=== PATIENT | male | born 1935 | race Asian ===

== ENCOUNTER 2016-10-24 10:56 | Inpatient (IN) | payer OTHER ==
[~2016-10-24] VITALS: Ht 170.2 cm; Wt 69.0 kg
[2016-10-24] MEDS ORDERED: PANTOPRAZOLE 40 MG INJ IV STA (11:06)
[2016-10-24] MEDS ORDERED: SOD CHLORIDE 0.9% 1,000 ML IV STA (11:13)
[2016-10-24] MEDS ORDERED: DILTIAZEM 25 MG INJ IV ONE ×2 (11:30→16:00)
[2016-10-24 11:32] LABS: BASOPHILS % 0.5 % (0.0-2.0); EOSINOPHILS % 0.2 % (0.0-7.0); HEMATOCRIT 25.7 % (42.0-52.0); HEMOGLOBIN 8.4 g/dl (14.0-18.0); LYMPHOCYTES # 1.4 10^3/ul (0.8-2.9); LYMPHOCYTES % 16.9 % (15.0-51.0); MEAN CORPUSCULAR HGB CONC 32.7 g/dl (32.0-37.0); MEAN CORPUSCULAR VOLUME 91.8 fl (82.0-101.0); MEAN PLATELET VOLUME 9.5 fl (7.4-10.4); MONOCYTE # 0.6 10^3/ul (0.3-0.9); MONOCYTES % 6.9 % (0.0-11.0); NEUTROPHIL # 6.2 10^3/ul (1.6-7.5); PLATELET COUNT 179 10^3/UL (140-415); RED CELL DISTRIBUTION WIDTH 15.3 % (11.5-14.5); WHITE BLOOD COUNT 8.3 10^3/ul (4.8-10.8)
[2016-10-24 11:50] LABS: ALANINE AMINOTRANSFERASE 29 IU/L (13-69); ALBUMIN 3.4 g/dl (3.3-4.9); ALBUMIN/GLOBULIN RATIO 1.06; ALKALINE PHOSPHATASE 94 IU/L (42-121); ANION GAP 18 (8-16); ASPARTATE AMINO TRANSFERASE 23 IU/L (15-46); BILIRUBIN,INDIRECT 1.1 mg/dl (0-1.1); BILIRUBIN,TOTAL 1.1 mg/dl (0.2-1.3); BLOOD UREA NITROGEN 15 mg/dl (7-20); CALCIUM 9.5 mg/dl (8.4-10.2); CARBON DIOXIDE 26 mmol/L (21-31); CHLORIDE 110 mmol/L (97-110); CREATININE 0.78 mg/dl (0.61-1.24); GLUCOSE 106 mg/dl (70-220); POTASSIUM 4.2 mmol/L (3.5-5.1); PROTIME 86.8 Sec (12.2-14.2); PT RATIO 6.8; SODIUM 150 mmol/L (135-144); TOTAL PROTEIN 6.6 g/dl (6.1-8.1)
[2016-10-24 12:02] LABS: TROPONIN-I < 0.012 ng/ml (0.00-0.12)
[2016-10-24 12:10] LABS: INR > 10.00; PARTIAL THROMBOPLASTIN TIME 160.4 Sec (25.0-35.0)
[2016-10-24] MEDS ORDERED: ONDANSETRON 4 MG INJ IV PRN ×2 (12:30→15:30)
[2016-10-24] MEDS ORDERED: EVAC CONTAINER IV ONE (12:30)
[2016-10-24] MEDS ORDERED: ACETAMINOPHEN 325 MG TAB PO PRN ×2 (12:30→15:30)
[2016-10-24] MEDS ORDERED: HUMAN PROTHROMBIN COMPLX IV ONE (12:30)
[2016-10-24] MEDS ORDERED: METO25TA7 PO (12:52)
[2016-10-24] MEDS ORDERED: LOVA40TA64 PO (12:52)
[2016-10-24] MEDS ORDERED: TAMS0.4C2 PO (12:52)
[2016-10-24] MEDS ORDERED: AMLO2.5T78 PO (12:52)
--- NOTE | 2016-10-24 13:16 | ERA ---
ER Documentation Chief Complaint Date/Time DATE: 10/24/16 TIME: 13:12 Chief Complaint BIB RA FROM CLINIC WITH BLOOD IN STOOL FOR 3 DAYS. GEN WEAKNESS HPI Patient is a 81-year-old male with atrial fibrillation, hypertension, and peripheral artery disease who presents with a GI bleed. The patient is on Coumadin. The bleeding started 2 days ago. He has mid abdominal pain and chest pain. He is shortness of breath. He was seen in the office at [facility] today and was sent to the ER for admission. ROS All systems reviewed and are negative except as per history of present illness. Medications Home Meds Reported Medications Tamsulosin Hcl* (Tamsulosin Hcl*) 0.4 Mg Cap.er.24h, 0.4 MG PO HS, CAP 10/24/16 Lovastatin* (Altoprev*) 40 Mg Tab.sr.24h, 40 MG PO HS, TAB 10/24/16 Amlodipine Besylate* (Amlodipine Besylate*) 2.5 Mg Tablet, 2.5 MG PO DAILY, #30 TAB 10/24/16 Metoprolol Succinate* (Toprol XL*) 25 Mg Tab.sr.24h, 25 MG PO DAILY, #30 TAB 10/24/16 Allergies Allergies: Coded Allergies: No Known Allergy (Unverified , 10/24/16) PMhx/Soc Hx Miscellaneous Medical Probl: Yes (A FIB) Hx Alcohol Use: No Hx Substance Use: No Hx Tobacco Use: No Smoking Status: Never smoker FmHx Family History: No diabetes Physical Exam Vitals Vital Signs Date Time Temp Pulse Resp B/P Pulse Ox O2 Delivery O2 Flow Rate FiO2 10/24/16 12:33 98.1 79 18 106/81 98 Room Air 10/24/16 11:48 Nasal Cannula 10/24/16 11:08 98.8 130 20 126/78 97 Physical Exam Const: No acute distress Head: Atraumatic Eyes: Normal Conjunctiva ENT: Normal External Ears, Nose and Mouth. Neck: Full range of motion..~ No meningismus. Resp: Clear to auscultation bilaterally Cardio: Tachycardic rate with a regular rhythm Abd: Soft, non tender, nondistended. Normal bowel sounds. Skin: Pale skin Back: No midline or flank tenderness Ext: No cyanosis, or edema Neur: Awake and alert Psych: Normal Mood and Affect Result Diagram: 10/24/16 1113 10/24/16 1113 Results 24 hrs Laboratory Tests Test 10/24/16 11:13 White Blood Count 8.310^3/ul Red Blood Count 2.8010^6/ul Hemoglobin 8.4g/dl Hematocrit 25.7% Mean Corpuscular Volume 91.8fl Mean Corpuscular Hemoglobin 30.0pg Mean Corpuscular Hemoglobin Concent 32.7g/dl Red Cell Distribution Width 15.3% Platelet Count 37893^3/UL Mean Platelet Volume 9.5fl Neutrophils % 75.0% Lymphocytes % 16.9% Monocytes % 6.9% Eosinophils % 0.2% Basophils % 0.5% Nucleated Red Blood Cells % 0.0/100WBC Neutrophils # 6.210^3/ul Lymphocytes # 1.410^3/ul Monocytes # 0.610^3/ul Eosinophils # 0.010^3/ul Basophils # 0.010^3/ul Nucleated Red Blood Cells # 0.010^3/ul Prothrombin Time 86.8Sec Prothrombin Time Ratio 6.8 INR International Normalized Ratio > 10.00 Activated Partial Thromboplast Time 160.4Sec Sodium Level 150mmol/L Potassium Level 4.2mmol/L Chloride Level 110mmol/L Carbon Dioxide Level 26mmol/L Anion Gap 18 Blood Urea Nitrogen 15mg/dl Creatinine 0.78mg/dl Glucose Level 106mg/dl Calcium Level 9.5mg/dl Total Bilirubin 1.1mg/dl Direct Bilirubin 0.00mg/dl Indirect Bilirubin 1.1mg/dl Aspartate Amino Transf (AST/SGOT) 23IU/L Alanine Aminotransferase (ALT/SGPT) 29IU/L Alkaline Phosphatase 94IU/L Troponin I < 0.012ng/ml Total Protein 6.6g/dl Albumin 3.4g/dl Globulin 3.20g/dl Albumin/Globulin Ratio 1.06 Current Medications Medications (Trade) Dose Ordered Sig/Ebenezer Route PRN Reason Start Time Stop Time Status Last Admin Dose Admin Pantoprazole 40 mg 40 mg ONCE STAT IV 10/24/16 11:06 10/24/16 11:07 DC 10/24/16 11:27 Sodium Chloride (NS) 1,000 ml @ 1,000 mls/hr Q1H STAT IV 10/24/16 11:13 10/24/16 12:12 DC 10/24/16 11:29 Diltiazem HCl (Cardizem Iv) 20 mg ONCE ONCE IV 10/24/16 11:30 10/24/16 11:31 DC 10/24/16 11:29 Ondansetron HCl (Zofran Inj) 4 mg ER BRIDGE PRN IV NAUSEA AND/OR VOMITING 10/24/16 12:30 10/25/16 12:29 Acetaminophen 650 mg 650 mg ER BRIDGE PRN PO MILD PAIN/FEVER 10/24/16 12:30 10/25/16 12:29 Prothrombin Complex Concent (Human)/N/A (Kcentra Kit/ Evac Container) 140 ml @ 280 mls/hr ONCE ONCE IV 10/24/16 12:30 10/24/16 12:59 DC Procedures/MDM EKG read by me: Rate/Rhythm: Atrial fibrillation with a rapid ventricular rate Intervals: Normal Impression: A. fib with RVR Chest x-ray pending at this time. Patient is a 81-year-old male who presents with acute atrial fibrillation with rapid ventricular response and acute GI bleed. The patient has a significant coagulopathy with INR greater than 10. Given the GI bleed and significantly elevated INR the patient will be getting K Centra. The patient will be admitted to a telemetry bed. I spoke with Dr. Sarmiento from the panel team for admission as the patient has [employer] insurance and the panel team is admitting for healthcare [employer]. Critical Care: Time: 35 minutes excluding all billable procedures. Treatments/Evaluations: Close monitoring and treatment of unstable vital signs, cardiorespiratory, and neurologic status, while maintaining tight balance of fluid, respiratory, and cardiac interventions. Departure Diagnosis: Primary Impression: Coagulopathy Additional Impressions: GI bleed Qualified Code: K92.2 - Gastrointestinal hemorrhage, unspecified gastrointestinal hemorrhage type Anemia Qualified Code: D64.9 - Anemia, unspecified type Condition: Serious DARÍO VERA MD Oct 24, 2016 13:16
[2016-10-24] MEDS ORDERED: ACETAMINOPHEN 650 MG SUPP PR PRN (15:30)
[2016-10-24] MEDS ORDERED: PHYTONADIONE 10 MG in DEXTROSE 5% 50 ML IVPB ONE ×4 (15:30)
[2016-10-24] MEDS ORDERED: BISACODYL 10 MG SUPP PR PRN (15:30)
[2016-10-24] MEDS ORDERED: HYDROCODONE/APAP (5/325) TAB PO PRN ×2 (15:30)
[2016-10-24] MEDS ORDERED: morphine 4 MG/ML VIAL IV PRN (15:30)
[2016-10-24] MEDS ORDERED: DOCUSATE SODIUM 100 MG CAP PO PRN (15:30)
[2016-10-24] MEDS ORDERED: NACL 0.9% 3 ML SYG IV SCH (15:30)
[2016-10-24] MEDS ORDERED: MAGNESIUM HYDROXIDE 30ML CUP PO PRN (15:30)
[2016-10-24] MEDS: SOD CHLORIDE 0.9% 1,000 ML IV SCH (16:10)
--- NOTE | 2016-10-24 16:18 | CONS ---
Date/Time of Note Date/Time of Note DATE: 10/24/16 TIME: 16:02 Assessment/Plan Assessment/Plan Additional Assessment/Plan Assessment * Anemia Hematochezia T/C lower GI bleed VS Upper GI Bleed * Supra Therapeutic INR * Atrial fibrillation with RVR * Hypertension Plan * Correct INR * Vit K as ordered * Protonix 40 mg BID * Monitor hemoglobin and hematocrit q 6 and transfuse per protocol * case discussed with Dr Dai * Further orders will depend on clinical course Consultation Date/Type/Reason Admit Date/Time Date of Consultation: Oct 24, 2016 Type of Consultation: Gastroenterology Reason for Consultation lower GI bleed Referring Provider: HAVEN FERRIS Hx of Present Illness 81 year old male with history of hypertension fibrillation atrial fibrillation presented in the Emergency room complaining of shortness of breath.Present condition apparently started 2 days prior to consult as hematochezia with vague abdominal pain.Patient denies any nausea ,hematemesis but patient has been on Coumadin.He went to his primary provider but was sent to ER because of shortness of breath.He denies any cough ,colds nor chest pain.Laboratory workup revealed hemoglobin 8.4,hematocrit 25.7 PT 86.8,INR, >10 APTT 160.4. Constitutional: improved, no complaints Eyes: no complaints ENT: no complaints Respiratory: shortness of breath, wheezing Cardiovascular: palpitations Gastrointestinal: blood Genitourinary: no complaints Musculoskeletal: no complaints Skin: no complaints Neurologic: no complaints Endocrine: no complaints Lymphatic: no complaints Psychological: nl mood/affect, no complaints Immunologic: no complaints Past Medical History Medical History: hypertension, other (atrial fibrillation) Family History Significant Family History: no pertinent family hx Social History Alcohol Use: rarely Smoking Status: Never smoker Exam/Review of Systems Vital Signs Vitals Vital Signs Date Time Temp Pulse Resp B/P Pulse Ox O2 Delivery O2 Flow Rate FiO2 10/24/16 14:52 98.1 71 18 119/63 98 Room Air Exam Constitutional: alert, frail, oriented Psych: nl mood/affect, no complaints Head: atraumatic, normocephalic Eyes: EOMI, PERRL, nl conjunctiva, nl lids, nl sclera ENMT: nl external ears & nose, nl lips & teeth, nl nasal mucosa & septum Neck: non-tender, supple Respiratory: diminished breath sounds, normal air movement, wheezing Cardiovascular: irregular rhythm Gastrointestinal: nl liver, spleen, non-tender, soft Musculoskeletal: nl extremities to inspection, nl gait and stance Extremities: normal pulses Neurological: nl mental status, nl speech Skin: nl turgor, No rash or lesions Lymph: nl lymph nodes Results Result Diagram: 10/24/16 1113 10/24/16 1113 Results 24 hrs Laboratory Tests Test 10/24/16 11:13 White Blood Count 8.3 Red Blood Count 2.80 L Hemoglobin 8.4 L Hematocrit 25.7 L Mean Corpuscular Volume 91.8 Mean Corpuscular Hemoglobin 30.0 Mean Corpuscular Hemoglobin Concent 32.7 Red Cell Distribution Width 15.3 H Platelet Count 179 Mean Platelet Volume 9.5 Neutrophils % 75.0 Lymphocytes % 16.9 Monocytes % 6.9 Eosinophils % 0.2 Basophils % 0.5 Nucleated Red Blood Cells % 0.0 Neutrophils # 6.2 Lymphocytes # 1.4 Monocytes # 0.6 Eosinophils # 0.0 Basophils # 0.0 Nucleated Red Blood Cells # 0.0 Prothrombin Time 86.8 H Prothrombin Time Ratio 6.8 INR International Normalized Ratio > 10.00 *H Activated Partial Thromboplast Time 160.4 *H Sodium Level 150 H Potassium Level 4.2 Chloride Level 110 Carbon Dioxide Level 26 Anion Gap 18 H Blood Urea Nitrogen 15 Creatinine 0.78 Glucose Level 106 Calcium Level 9.5 Total Bilirubin 1.1 Direct Bilirubin 0.00 Indirect Bilirubin 1.1 Aspartate Amino Transf (AST/SGOT) 23 Alanine Aminotransferase (ALT/SGPT) 29 Alkaline Phosphatase 94 Troponin I < 0.012 Total Protein 6.6 Albumin 3.4 Globulin 3.20 Albumin/Globulin Ratio 1.06 Medications Medications Current Medications Amlodipine Besylate (Norvasc) 2.5 mg DAILY PO ; Start 10/25/16 at 09:00 Metoprolol Succinate (Toprol Xl) 25 mg DAILY PO ; Start 10/25/16 at 09:00 Tamsulosin HCl (Flomax) 0.4 mg HS PO ; Start 10/24/16 at 21:00 Atorvastatin Calcium 10 mg 10 mg DAILY@21 PO ; Start 10/24/16 at 21:00 Sodium Chloride (NS) 1,000 ml @ 60 mls/hr [id number] IV ; Start 10/24/16 at 15:16 Ondansetron HCl (Zofran Inj) 4 mg Q6H PRN IV NAUSEA AND/OR VOMITING; Start 10/24 at 15:30 Acetaminophen (Tylenol Tab) 650 mg Q6H PRN PO PAIN LEVEL 1-3 OR FEVER; Start at 15:30 Acetaminophen (Tylenol Supp) 650 mg Q6H PRN [place] PAIN LEVEL 1-3 OR FEVER; Start 10/24/16 at 15:30 Acetaminophen/ Hydrocodone Bitart ([place] (5/325)) 1 tab Q6H PRN PO MODERATE PAIN LEVEL 4-6; Start 10/24/16 at 15:30 Acetaminophen/ Hydrocodone Bitart ([place] (5/325)) 2 tab Q6H PRN PO SEVERE PAIN LEVEL 7-10; Start 10/24/16 at 15:30 Morphine Sulfate (morphine) 2 mg Q4H PRN IV SEVERE PAIN LEVEL 7-10; Start at 15:30 Docusate Sodium (Colace) 100 mg Q12H PRN PO CONSTIPATION; Start 10/24/16 at 15: 30 Magnesium Hydroxide (Milk Of Mag) 30 ml DAILY PRN PO CONSTIPATION; Start at 15:30 Bisacodyl (Dulcolax Supp) 10 mg DAILY PRN [place] CONSTIPATION; Start 10/24/16 at 15: 30 Pantoprazole (Protonix Iv) 40 mg DAILY@06 IV ; Start 10/25/16 at 06:00 Diltiazem HCl (Cardizem Iv) 20 mg ONCE ONCE IV ; Start 10/24/16 at 16:00; Stop 10/24/16 at 16:01 JOHN CONNELL NP Oct 24, 2016 16:12
[2016-10-24] MEDS ORDERED: DILTIAZEM 30 MG TAB PO ONE (16:30)
--- NOTE | 2016-10-24 16:31 | HP ---
Date/Time of Note Date/Time of Note DATE: 10/24/16 TIME: 16:23 Assessment/Plan VTE Prophylaxis VTE Prophylaxis Intervention: contraindicated Assessment/Plan Chief Complaint/Hosp Course Impression and plan 1. Hematochezia and anemia. Patient with supratherapeutic INR and was taking warfarin without having his level checked. Patient given K Centra as well as vitamin K in the ER. Monitor H&H and also monitor INR level. Will get greige mender follow. 2. A. fib with RVR. Patient was given Cardizem. Will get eating disorder specialist to follow. Patient to be resumed on beta-sarath 3. Essential hypertension. Will resume patient's antihypertensives and adjust as needed 4. History of dyslipidemia. Continue on statin medication follow-up on fasting lipid panel 5. BPH. Patient resumed on his home regimen Discussed plan of care with Dr. Arenas Problems: HPI/ROS Admit Date/Time Admit Date/Time Hx of Present Illness This is a 81-year-old male with history of hypertension, BPH, dyslipidemia, heart arrhythmia (history of this unclear) who came to [facility] due to reports of 3 days of hematochezia. According to the patient for the past 2 days he been having bright red blood in his stool also with associated weakness and some shortness of breath. He also reported being able to bruise easily. He of note was reportedly started on warfarin for a heart arrhythmia however had never been getting his level and INR checked. He did come to [facility] due to the aformentiond issues. He was seen with hemoglobin of 8.4 and hematocrit of 25.7. He was slightly hyponatremic with sodium at 150. He remained afebrile. Initial troponin was also negative. Patient was also found to be an A. fib with rapid rate as high as 130. He was given Cardizem 20 mg with good response. Currently the patient is seen in atrial fibrillation but rate is currently controlled. We will evaluate him for the aformentiond issues. ROS 12 point review of systems obtained and entirely negative except that mentioned in history of present illness Eyes: no complaints ENT: no complaints Respiratory: shortness of breath, wheezing Cardiovascular: palpitations Gastrointestinal: blood Genitourinary: no complaints Musculoskeletal: no complaints Skin: no complaints Neurologic: no complaints Lymphatic: no complaints Psychological: nl mood/affect, no complaints Immunologic: no complaints PMH/Family/Social Past Medical History Medical/surgical history 1. Reported heart arrhythmia 2. Hypertension 3. Dyslipidemia 4. BPH 5. Abdominal surgery (patient does not know why he had surgery) Medical History: hypertension, other (atrial fibrillation) Family History Significant Family History: no pertinent family hx Social History Alcohol Use: none Smoking Status: Former smoker Drug Use: none Exam/Review of Systems Vital Signs Vitals Vital Signs Date Time Temp Pulse Resp B/P Pulse Ox O2 Delivery O2 Flow Rate FiO2 10/24/16 14:52 98.1 71 18 119/63 98 Room Air Exam Constitutional: alert, oriented Head: normocephalic Neck: supple, No jvd Respiratory: clear to auscultation Cardiovascular: other (irregular rate) Gastrointestinal: non-tender, soft Musculoskeletal: swelling (BLE ) Neurological: HIV PREVENTION SPECIALIST II-XII intact, nl mental status, nl speech Skin: other (Ecchymosis seen on bilateral upper extremities) Labs Result Diagram: 10/24/16 1113 10/24/16 1113 Medications Medications Current Medications Amlodipine Besylate (Norvasc) 2.5 mg DAILY PO ; Start 10/25/16 at 09:00 Metoprolol Succinate (Toprol Xl) 25 mg DAILY PO ; Start 10/25/16 at 09:00 Tamsulosin HCl (Flomax) 0.4 mg HS PO ; Start 10/24/16 at 21:00 Atorvastatin Calcium 10 mg 10 mg DAILY@21 PO ; Start 10/24/16 at 21:00 Sodium Chloride (NS) 1,000 ml @ 60 mls/hr [id number] IV Last administered on t 16:10; Admin Dose 60 MLS/HR; Start 10/24/16 at 15:16 Ondansetron HCl (Zofran Inj) 4 mg Q6H PRN IV NAUSEA AND/OR VOMITING; Start 10/24 at 15:30 Acetaminophen (Tylenol Tab) 650 mg Q6H PRN PO PAIN LEVEL 1-3 OR FEVER; Start at 15:30 Acetaminophen (Tylenol Supp) 650 mg Q6H PRN [place] PAIN LEVEL 1-3 OR FEVER; Start 10/24/16 at 15:30 Acetaminophen/ Hydrocodone Bitart ([place] (5/325)) 1 tab Q6H PRN PO MODERATE PAIN LEVEL 4-6; Start 10/24/16 at 15:30 Acetaminophen/ Hydrocodone Bitart ([place] (5/325)) 2 tab Q6H PRN PO SEVERE PAIN LEVEL 7-10; Start 10/24/16 at 15:30 Morphine Sulfate (morphine) 2 mg Q4H PRN IV SEVERE PAIN LEVEL 7-10; Start at 15:30 Docusate Sodium (Colace) 100 mg Q12H PRN PO CONSTIPATION; Start 10/24/16 at 15: 30 Magnesium Hydroxide (Milk Of Mag) 30 ml DAILY PRN PO CONSTIPATION; Start at 15:30 Bisacodyl (Dulcolax Supp) 10 mg DAILY PRN [place] CONSTIPATION; Start 10/24/16 at 15: 30 Pantoprazole (Protonix Iv) 40 mg DAILY@06 IV ; Start 10/25/16 at 06:00 Diltiazem HCl (Cardizem) 30 mg ONCE ONCE PO ; Start 10/24/16 at 16:30; Stop 10/24 at 16:31 HAVEN FERRIS Oct 24, 2016 16:31
--- NOTE | 2016-10-24 19:24 | CONS ---
Date/Time of Note Date/Time of Note DATE: 10/24/16 TIME: 19:17 Assessment/Plan Assessment/Plan Chief Complaint/Hosp Course Assessment: Atrial fibrillation, likely chronic - rapid ventricular rates on presentation, now rate controlled Hematochezia and anemia - per gastroenterology Supratherapeutic INR - >10 Hypertension Dyslipidemia Benign prostate hyperplasia Recommendations: -vitamin K -continue metoprolol succinate 25mg daily and amlodipine 2.5mg daily -continue statin Problems: Consultation Date/Type/Reason Admit Date/Time Type of Consultation: Cardiology Reason for Consultation atrial fibrillation with rapid ventricular response Hx of Present Illness The patient is a 81 year-old male who presents with a three day history of hematochezia. His hemoglobin is 8.4 and INR is >10. He is presumably on warfarin for atrial fibrillation. He is very unclear about his past medical history or current home medications. 14 point review of systems negative other than per HPI. Past Medical History Atrial fibrillation Hypertension Dyslipidemia Benign prostate hyperplasia Past Surgical History Abdominal surgery - patient does not know details Family History Significant Family History: no pertinent family hx Social History Alcohol Use: none Smoking Status: Former smoker Drug Use: none Exam/Review of Systems Vital Signs Vitals Vital Signs Date Time Temp Pulse Resp B/P Pulse Ox O2 Delivery O2 Flow Rate FiO2 10/24/16 19:02 98.8 68 24 123/104 98 Room Air Exam Constitutional: alert, well developed Psych: nl mood/affect, no complaints Head: atraumatic, normocephalic Eyes: nl conjunctiva, nl lids ENMT: nl external ears & nose, nl nasal mucosa & septum Neck: non-tender, supple, No jvd Respiratory: clear to auscultation Cardiovascular: irregular rhythm Gastrointestinal: non-tender, soft Musculoskeletal: nl extremities to inspection Extremities: No clubbing, No cyanosis, No edema Neurological: nl mental status, nl speech Skin: nl turgor Results Result Diagram: 10/24/16 1113 10/24/16 1113 Results 24 hrs Laboratory Tests Test 10/24/16 11:13 White Blood Count 8.3 Red Blood Count 2.80 L Hemoglobin 8.4 L Hematocrit 25.7 L Mean Corpuscular Volume 91.8 Mean Corpuscular Hemoglobin 30.0 Mean Corpuscular Hemoglobin Concent 32.7 Red Cell Distribution Width 15.3 H Platelet Count 179 Mean Platelet Volume 9.5 Neutrophils % 75.0 Lymphocytes % 16.9 Monocytes % 6.9 Eosinophils % 0.2 Basophils % 0.5 Nucleated Red Blood Cells % 0.0 Neutrophils # 6.2 Lymphocytes # 1.4 Monocytes # 0.6 Eosinophils # 0.0 Basophils # 0.0 Nucleated Red Blood Cells # 0.0 Prothrombin Time 86.8 H Prothrombin Time Ratio 6.8 INR International Normalized Ratio > 10.00 *H Activated Partial Thromboplast Time 160.4 *H Sodium Level 150 H Potassium Level 4.2 Chloride Level 110 Carbon Dioxide Level 26 Anion Gap 18 H Blood Urea Nitrogen 15 Creatinine 0.78 Glucose Level 106 Calcium Level 9.5 Total Bilirubin 1.1 Direct Bilirubin 0.00 Indirect Bilirubin 1.1 Aspartate Amino Transf (AST/SGOT) 23 Alanine Aminotransferase (ALT/SGPT) 29 Alkaline Phosphatase 94 Troponin I < 0.012 Total Protein 6.6 Albumin 3.4 Globulin 3.20 Albumin/Globulin Ratio 1.06 Medications Medications Current Medications Amlodipine Besylate (Norvasc) 2.5 mg DAILY PO ; Start 10/25/16 at 09:00 Metoprolol Succinate (Toprol Xl) 25 mg DAILY PO ; Start 10/25/16 at 09:00 Tamsulosin HCl (Flomax) 0.4 mg HS PO ; Start 10/24/16 at 21:00 Atorvastatin Calcium 10 mg 10 mg DAILY@21 PO ; Start 10/24/16 at 21:00 Sodium Chloride (NS) 1,000 ml @ 60 mls/hr [id number] IV Last administered on t 16:10; Admin Dose 60 MLS/HR; Start 10/24/16 at 15:16 Ondansetron HCl (Zofran Inj) 4 mg Q6H PRN IV NAUSEA AND/OR VOMITING; Start 10/24 at 15:30 Acetaminophen (Tylenol Tab) 650 mg Q6H PRN PO PAIN LEVEL 1-3 OR FEVER; Start at 15:30 Acetaminophen (Tylenol Supp) 650 mg Q6H PRN OR PAIN LEVEL 1-3 OR FEVER; Start 10/24/16 at 15:30 Acetaminophen/ Hydrocodone Bitart ([place] (5/325)) 1 tab Q6H PRN PO MODERATE PAIN LEVEL 4-6; Start 10/24/16 at 15:30 Acetaminophen/ Hydrocodone Bitart ([place] (5/325)) 2 tab Q6H PRN PO SEVERE PAIN LEVEL 7-10; Start 10/24/16 at 15:30 Morphine Sulfate (morphine) 2 mg Q4H PRN IV SEVERE PAIN LEVEL 7-10; Start at 15:30 Docusate Sodium (Colace) 100 mg Q12H PRN PO CONSTIPATION; Start 10/24/16 at 15: 30 Magnesium Hydroxide (Milk Of Mag) 30 ml DAILY PRN PO CONSTIPATION; Start at 15:30 Bisacodyl (Dulcolax Supp) 10 mg DAILY PRN OR CONSTIPATION; Start 10/24/16 at 15: 30 Pantoprazole (Protonix Iv) 40 mg DAILY@06 IV ; Start 10/25/16 at 06:00 VINICIO BRAGA MD Oct 24, 2016 19:24
[2016-10-24 19:39] LABS: HEMATOCRIT 23.5 % (42.0-52.0); HEMOGLOBIN 7.5 g/dl (14.0-18.0)
[2016-10-24 20:26] VITALS: TEMP 98.6
[2016-10-24 21:03] VITALS: PULSE 104
[2016-10-24 22:00] VITALS: Ht 170.2 cm; Wt 69.0 kg
[2016-10-24] MEDS: ATORVASTATIN 10 MG TAB PO SCH (22:17)
[2016-10-24] MEDS: TAMSULOSIN (SR) 0.4 MG CAP PO SCH (22:17)
[2016-10-25] VITALS (14 sets, daily range): BP systolic 122–156; BP diastolic 61–82; PULSE 86–175; RESP 18–19
[2016-10-25] MEDS: PANTOPRAZOLE 40 MG INJ IV SCH (06:27)
[2016-10-25] MEDS: SOD CHLORIDE 0.9% 1,000 ML IV SCH ×2 (07:56→20:14)
[2016-10-25 08:38] LABS: ALANINE AMINOTRANSFERASE 24 IU/L (13-69); ALBUMIN/GLOBULIN RATIO 1.11; ALKALINE PHOSPHATASE 85 IU/L (42-121); ANION GAP 16 (8-16); ASPARTATE AMINO TRANSFERASE 28 IU/L (15-46); BILIRUBIN,INDIRECT 1.2 mg/dl (0-1.1); BILIRUBIN,TOTAL 1.2 mg/dl (0.2-1.3); BLOOD UREA NITROGEN 16 mg/dl (7-20); CALCIUM 9.5 mg/dl (8.4-10.2); CARBON DIOXIDE 21 mmol/L (21-31); CHLORIDE 111 mmol/L (97-110); CHOL/HDL RATIO 3.6 RATIO; CHOLESTEROL 102 mg/dl (100-200); CREATININE 0.66 mg/dl (0.61-1.24); GLUCOSE 91 mg/dl (70-220); HDL CHOLESTEROL 28 mg/dl (31-75); MAGNESIUM 1.7 mg/dl (1.7-2.5); PHOSPHORUS 3.3 mg/dl (2.5-4.9); POTASSIUM 3.9 mmol/L (3.5-5.1); SODIUM 144 mmol/L (135-144); TOTAL PROTEIN 5.7 g/dl (6.1-8.1); TRIGLYCERIDES 84 mg/dl (0-149)
[2016-10-25 08:56] LABS: T3 UPTAKE 55.6 % (23.5-40.5)
[2016-10-25] MEDS ORDERED: AMLODIPINE 2.5 MG TAB PO SCH (09:00)
[2016-10-25] MEDS ORDERED: METOPROLOL (XL) 25 MG TAB PO SCH (09:00)
[2016-10-25 09:11] LABS: THYROID STIMULATING HORMONE < 0.015 MIU/L (0.465-4.680)
[2016-10-25 09:32] LABS: HEMATOCRIT 28.8 % (42.0-52.0); HEMOGLOBIN 9.6 g/dl (14.0-18.0)
[2016-10-25] MEDS ORDERED: morphine 2 MG INJ IV PRN (11:00)
[2016-10-25 12:14] LABS: HEMATOCRIT 29.4 % (42.0-52.0); HEMOGLOBIN 9.7 g/dl (14.0-18.0)
--- NOTE | 2016-10-25 12:44 | PN ---
Date/Time of Note Date/Time of Note DATE: 10/25/16 TIME: 12:40 Assessment/Plan VTE Prophylaxis VTE Prophylaxis Intervention: SCD's Lines/Catheters IV Catheter Type (from [facility]): Peripheral IV Urinary Cath still in place: No Assessment/Plan Assessment/Plan Assessment * Anemia * GI bleeding /ematochezia T/C lower GI bleed VS Upper GI Bleed * Supra Therapeutic INR * Atrial fibrillation with RVR * Hypertension Plan * Correct INR * Vit K as ordered * Protonix 40 mg BID * Monitor hemoglobin and hematocrit q 6 and transfuse per protocol * Tentative plans for colonoscopy on Thursday Subjective 24 Hr Interval Summary Free Text/Dictation Course reviewed with nursing staff Patient had a normal bowel movement He is a bit short of breath from exertion Coagulopathy still not corrected Plan tentative colonoscopy on Thursday once coagulopathy is improved Exam/Review of Systems Vital Signs Vitals Vital Signs Date Time Temp Pulse Resp B/P Pulse Ox O2 Delivery O2 Flow Rate FiO2 10/25/16 12:08 109 10/25/16 11:40 97.9 18 127/80 99 10/25/16 07:55 Nasal Cannula 2.0 Intake and Output 10/24/16 10/24/16 10/25/16 15:00 23:00 07:00 Intake Total 1100 ml Balance 1100 ml Exam Constitutional: alert, oriented, well developed Head: atraumatic, normocephalic Eyes: EOMI, PERRL, nl conjunctiva, nl lids, nl sclera ENMT: nl external ears & nose, nl lips & teeth, nl nasal mucosa & septum Neck: non-tender, supple Respiratory: clear to auscultation, normal air movement Cardiovascular: irregular rhythm, nl pulses Gastrointestinal: distended, nl liver, spleen, non-tender, soft Musculoskeletal: nl extremities to inspection, nl gait and stance Extremities: normal pulses Skin: nl turgor, No rash or lesions Lymph: nl lymph nodes Results Result Diagram: 10/25/16 1148 10/25/16 0738 Results 24 hrs Laboratory Tests Test 10/24/16 19:00 10/25/16 07:34 10/25/16 07:38 10/25/16 11:48 Hemoglobin 7.5 L 9.6 #L 9.7 L Hematocrit 23.5 L 28.8 #L 29.4 L Hemoglobin A1c 5.2 Sodium Level 144 Potassium Level 3.9 Chloride Level 111 H Carbon Dioxide Level 21 Anion Gap 16 Blood Urea Nitrogen 16 Creatinine 0.66 Glucose Level 91 Calcium Level 9.5 Phosphorus Level 3.3 Magnesium Level 1.7 Total Bilirubin 1.2 Direct Bilirubin 0.00 Indirect Bilirubin 1.2 H Aspartate Amino Transf (AST/SGOT) 28 Alanine Aminotransferase (ALT/SGPT) 24 Alkaline Phosphatase 85 Total Protein 5.7 L Albumin 3.0 L Globulin 2.70 Albumin/Globulin Ratio 1.11 Triglycerides Level 84 Cholesterol Level 102 LDL Cholesterol, Calculated 57 HDL Cholesterol 28 L Cholesterol/HDL Ratio 3.6 Thyroid Stimulating Hormone (TSH) < 0.015 L Free Thyroxine Index 9.79 H Thyroxine (T4) 17.6 H Triiodothyronine (T3) Uptake 55.6 H Medications Medications Current Medications Amlodipine Besylate (Norvasc) 2.5 mg DAILY PO Last administered on 10/25/16 09: 42; Admin Dose 2.5 MG; Start 10/25/16 at 09:00 Metoprolol Succinate (Toprol Xl) 25 mg DAILY PO Last administered on 10/25/16 09:42; Admin Dose 25 MG; Start 10/25/16 at 09:00 Tamsulosin HCl (Flomax) 0.4 mg HS PO Last administered on 10/24/16 22:17; Admin Dose 0.4 MG; Start 10/24/16 at 21:00 Atorvastatin Calcium 10 mg 10 mg DAILY@21 PO Last administered on 10/24/16 22: 17; Admin Dose 10 MG; Start 10/24/16 at 21:00 Sodium Chloride (NS) 1,000 ml @ 60 mls/hr [id number] IV Last administered on 16:10; Admin Dose 60 MLS/HR; Start 10/24/16 at 15:16 Ondansetron HCl (Zofran Inj) 4 mg Q6H PRN IV NAUSEA AND/OR VOMITING; Start 10/24 at 15:30 Acetaminophen (Tylenol Tab) 650 mg Q6H PRN PO PAIN LEVEL 1-3 OR FEVER; Start at 15:30 Acetaminophen (Tylenol Supp) 650 mg Q6H PRN [place] PAIN LEVEL 1-3 OR FEVER; Start 10/24/16 at 15:30 Acetaminophen/ Hydrocodone Bitart ([place] (5/325)) 1 tab Q6H PRN PO MODERATE PAIN LEVEL 4-6; Start 10/24/16 at 15:30 Acetaminophen/ Hydrocodone Bitart ([place] (5/325)) 2 tab Q6H PRN PO SEVERE PAIN LEVEL 7-10; Start 10/24/16 at 15:30 Docusate Sodium (Colace) 100 mg Q12H PRN PO CONSTIPATION; Start 10/24/16 at 15: 30 Magnesium Hydroxide (Milk Of Mag) 30 ml DAILY PRN PO CONSTIPATION; Start at 15:30 Bisacodyl (Dulcolax Supp) 10 mg DAILY PRN [place] CONSTIPATION; Start 10/24/16 at 15: 30 Pantoprazole (Protonix Iv) 40 mg DAILY@06 IV Last administered on 10/25/16t 06: 27; Admin Dose 40 MG; Start 10/25/16 at 06:00 Morphine Sulfate (morphine) 2 mg Q4H PRN IV SEVERE PAIN LEVEL 7-10; Start at 11:00 HARVEY CABELLO MD Oct 25, 2016 12:44
--- NOTE | 2016-10-25 13:05 | PN ---
Date/Time of Note Date/Time of Note DATE: 10/25/16 TIME: 13:02 Assessment/Plan VTE Prophylaxis VTE Prophylaxis Intervention: contraindicated Lines/Catheters IV Catheter Type (from [facility]): Peripheral IV Urinary Cath still in place: No Assessment/Plan Chief Complaint/Hosp Course Impression and plan 1. Hematochezia and anemia. Patient with supratherapeutic INR and was taking warfarin without having his level checked. Patient given K Centra as well as vitamin K in the ER. Monitor H&H and also monitor INR level. Launch Check Out following. Tentative plan for colonoscopy. Will follow up 2. A. fib with RVR. Continue regimen per adult services librarian. Also seen with a regular thyroid function. Will get store leader to follow. 3. Essential hypertension. Will resume patient's antihypertensives and adjust as needed. Stable 4. History dyslipidemia. Continue on statin 5. BPH. Patient resumed on his home regimen 6. Hyperthyroid. Will get store leader to follow. Disposition and plan: Tentative plan for GI intervention. Monitor INR. Will get store leader consultation. Discussed plan of care with Dr. Arenas Problems: Subjective 24 Hr Interval Summary Free Text/Dictation No reports of distress at this time. Was reported to still be tachycardic per RN. Exam/Review of Systems Vital Signs Vitals Vital Signs Date Time Temp Pulse Resp B/P Pulse Ox O2 Delivery O2 Flow Rate FiO2 10/25/16 12:08 109 10/25/16 11:40 97.9 18 127/80 99 10/25/16 07:55 Nasal Cannula 2.0 Intake and Output 10/24/16 10/24/16 10/25/16 15:00 23:00 07:00 Intake Total 1100 ml Balance 1100 ml Exam Constitutional: alert, oriented Psych: nl mood/affect Head: normocephalic Respiratory: normal air movement Cardiovascular: other Gastrointestinal: non-tender (Tachycardic, atrial fibrillation), soft Musculoskeletal: swelling Neurological: CAPTURE MANAGER II-XII intact, nl mental status, nl speech Results Result Diagram: 10/25/16 1148 10/25/16 0738 Results 24 hrs Laboratory Tests Test 10/24/16 19:00 10/25/16 07:34 10/25/16 07:38 10/25/16 11:48 Hemoglobin 7.5 L 9.6 #L 9.7 L Hematocrit 23.5 L 28.8 #L 29.4 L Hemoglobin A1c 5.2 Sodium Level 144 Potassium Level 3.9 Chloride Level 111 H Carbon Dioxide Level 21 Anion Gap 16 Blood Urea Nitrogen 16 Creatinine 0.66 Glucose Level 91 Calcium Level 9.5 Phosphorus Level 3.3 Magnesium Level 1.7 Total Bilirubin 1.2 Direct Bilirubin 0.00 Indirect Bilirubin 1.2 H Aspartate Amino Transf (AST/SGOT) 28 Alanine Aminotransferase (ALT/SGPT) 24 Alkaline Phosphatase 85 Total Protein 5.7 L Albumin 3.0 L Globulin 2.70 Albumin/Globulin Ratio 1.11 Triglycerides Level 84 Cholesterol Level 102 LDL Cholesterol, Calculated 57 HDL Cholesterol 28 L Cholesterol/HDL Ratio 3.6 Thyroid Stimulating Hormone (TSH) < 0.015 L Free Thyroxine Index 9.79 H Thyroxine (T4) 17.6 H Triiodothyronine (T3) Uptake 55.6 H Medications Medications Current Medications Amlodipine Besylate (Norvasc) 2.5 mg DAILY PO Last administered on 10/25/16 09: 42; Admin Dose 2.5 MG; Start 10/25/16 at 09:00 Metoprolol Succinate (Toprol Xl) 25 mg DAILY PO Last administered on 10/25/16 09:42; Admin Dose 25 MG; Start 10/25/16 at 09:00 Tamsulosin HCl (Flomax) 0.4 mg HS PO Last administered on 10/24/16 22:17; Admin Dose 0.4 MG; Start 10/24/16 at 21:00 Atorvastatin Calcium 10 mg 10 mg DAILY@21 PO Last administered on 10/24/16 22: 17; Admin Dose 10 MG; Start 10/24/16 at 21:00 Sodium Chloride (NS) 1,000 ml @ 60 mls/hr [id number] IV Last administered on 16:10; Admin Dose 60 MLS/HR; Start 10/24/16 at 15:16 Ondansetron HCl (Zofran Inj) 4 mg Q6H PRN IV NAUSEA AND/OR VOMITING; Start 10/24 at 15:30 Acetaminophen (Tylenol Tab) 650 mg Q6H PRN PO PAIN LEVEL 1-3 OR FEVER; Start at 15:30 Acetaminophen (Tylenol Supp) 650 mg Q6H PRN [place] PAIN LEVEL 1-3 OR FEVER; Start 10/24/16 at 15:30 Acetaminophen/ Hydrocodone Bitart ([place] (5/325)) 1 tab Q6H PRN PO MODERATE PAIN LEVEL 4-6; Start 10/24/16 at 15:30 Acetaminophen/ Hydrocodone Bitart ([place] (5/325)) 2 tab Q6H PRN PO SEVERE PAIN LEVEL 7-10; Start 10/24/16 at 15:30 Docusate Sodium (Colace) 100 mg Q12H PRN PO CONSTIPATION; Start 10/24/16 at 15: 30 Magnesium Hydroxide (Milk Of Mag) 30 ml DAILY PRN PO CONSTIPATION; Start at 15:30 Bisacodyl (Dulcolax Supp) 10 mg DAILY PRN [place] CONSTIPATION; Start 10/24/16 at 15: 30 Pantoprazole (Protonix Iv) 40 mg DAILY@06 IV Last administered on 10/25/16t 06: 27; Admin Dose 40 MG; Start 10/25/16 at 06:00 Morphine Sulfate (morphine) 2 mg Q4H PRN IV SEVERE PAIN LEVEL 7-10; Start at 11:00 Bisacodyl (Dulcolax) 10 mg ONCE ONCE PO ; Start 10/26/16 at 13:00; Stop 10/26/16 at 13:01 Magnesium Citrate (Citroma) 300 ml ONCE ONCE PO ; Start 10/26/16 at 17:30; Stop 10/26/16 at 17:31 Polyethylene Glycol (Miralax) 119 gm ONCE ONCE PO ; Start 10/26/16 at 18:30; Stop 10/26/16 at 18:31 HAVEN FERRIS Oct 25, 2016 13:05
--- NOTE | 2016-10-25 14:38 | CONS ---
Date/Time of Note Date/Time of Note DATE: 10/25/16 TIME: 14:33 Assessment/Plan Assessment/Plan Problems: (1) Thyrotoxicosis Status: Chronic Comment: This patient's presentation is multifactorial. However is not unreasonable to feel that he is approaching storm. He will be treated aggressively to try and bring his numbers down. I do not feel he needs dialysis to dialyze off the T4. Once we get this stabilized then he will need a more formalized cardiac evaluation. To the best of the information I have he was not given amiodarone for the atrial fibrillation as such I suspect based on his history this is a long-term process. 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 He reports no prior history of ever having been told of any type of thyroid disorder. He did have some odynophagia in the remote past. He reports in the last 1 month he had been identified as having atrial fibrillation at an urgent care center. He was placed on anticoagulation has now come in with a significant GI bleed. On careful review of systems he has had symptoms of hyperthyroidism for at least 6 months if not much longer Constitutional: no complaints (No fevers chills or sweats) Eyes: no complaints ENT: no complaints Respiratory: shortness of breath, wheezing Cardiovascular: palpitations Gastrointestinal: blood Genitourinary: no complaints Musculoskeletal: no complaints Skin: no complaints Neurologic: no complaints, other (Does note tremor which he reports he has had for 3 years) Lymphatic: no complaints Psychological: nl mood/affect, no complaints Immunologic: no complaints Past Medical History Medical History: hypertension Past Surgical History Past Surgical Hx: noncontributory Family History Significant Family History: no pertinent family hx Social History Alcohol Use: none Smoking Status: Never smoker Drug Use: none Exam/Review of Systems Vital Signs Vitals Vital Signs Date Time Temp Pulse Resp B/P Pulse Ox O2 Delivery O2 Flow Rate FiO2 10/25/16 12:08 109 10/25/16 11:40 97.9 18 127/80 99 10/25/16 07:55 Nasal Cannula 2.0 Intake and Output 10/24/16 10/24/16 10/25/16 15:00 23:00 07:00 Intake Total 1100 ml Balance 1100 ml Exam Constitutional: alert, oriented Neck: thyromegaly (Modest enlargement of thyroid gland) Respiratory: crackles/rales, normal air movement Cardiovascular: irregular rhythm Gastrointestinal: nl liver, spleen, non-tender, soft Neurological: other (Marked tremor) Results Result Diagram: 10/25/16 1148 10/25/16 0738 Results 24 hrs Laboratory Tests Test 10/24/16 19:00 10/25/16 07:34 10/25/16 07:38 10/25/16 11:48 Hemoglobin 7.5 L 9.6 #L 9.7 L Hematocrit 23.5 L 28.8 #L 29.4 L Hemoglobin A1c 5.2 Sodium Level 144 Potassium Level 3.9 Chloride Level 111 H Carbon Dioxide Level 21 Anion Gap 16 Blood Urea Nitrogen 16 Creatinine 0.66 Glucose Level 91 Calcium Level 9.5 Phosphorus Level 3.3 Magnesium Level 1.7 Total Bilirubin 1.2 Direct Bilirubin 0.00 Indirect Bilirubin 1.2 H Aspartate Amino Transf (AST/SGOT) 28 Alanine Aminotransferase (ALT/SGPT) 24 Alkaline Phosphatase 85 Total Protein 5.7 L Albumin 3.0 L Globulin 2.70 Albumin/Globulin Ratio 1.11 Triglycerides Level 84 Cholesterol Level 102 LDL Cholesterol, Calculated 57 HDL Cholesterol 28 L Cholesterol/HDL Ratio 3.6 Thyroid Stimulating Hormone (TSH) < 0.015 L Free Thyroxine Index 9.79 H Thyroxine (T4) 17.6 H Triiodothyronine (T3) Uptake 55.6 H Test 10/25/16 12:35 Stool Occult Blood POSITIVE Medications Medications Current Medications Amlodipine Besylate (Norvasc) 2.5 mg DAILY PO Last administered on 10/25/16 09: 42; Admin Dose 2.5 MG; Start 10/25/16 at 09:00 Metoprolol Succinate (Toprol Xl) 25 mg DAILY PO Last administered on 10/25/16 09:42; Admin Dose 25 MG; Start 10/25/16 at 09:00 Tamsulosin HCl (Flomax) 0.4 mg HS PO Last administered on 10/24/16 22:17; Admin Dose 0.4 MG; Start 10/24/16 at 21:00 Atorvastatin Calcium 10 mg 10 mg DAILY@21 PO Last administered on 10/24/16 22: 17; Admin Dose 10 MG; Start 10/24/16 at 21:00 Sodium Chloride (NS) 1,000 ml @ 60 mls/hr [id number] IV Last administered on 16:10; Admin Dose 60 MLS/HR; Start 10/24/16 at 15:16 Ondansetron HCl (Zofran Inj) 4 mg Q6H PRN IV NAUSEA AND/OR VOMITING; Start 10/24 at 15:30 Acetaminophen (Tylenol Tab) 650 mg Q6H PRN PO PAIN LEVEL 1-3 OR FEVER; Start at 15:30 Acetaminophen (Tylenol Supp) 650 mg Q6H PRN [place] PAIN LEVEL 1-3 OR FEVER; Start 10/24/16 at 15:30 Acetaminophen/ Hydrocodone Bitart ([place] (5/325)) 1 tab Q6H PRN PO MODERATE PAIN LEVEL 4-6; Start 10/24/16 at 15:30 Acetaminophen/ Hydrocodone Bitart ([place] (5/325)) 2 tab Q6H PRN PO SEVERE PAIN LEVEL 7-10; Start 10/24/16 at 15:30 Docusate Sodium (Colace) 100 mg Q12H PRN PO CONSTIPATION; Start 10/24/16 at 15: 30 Magnesium Hydroxide (Milk Of Mag) 30 ml DAILY PRN PO CONSTIPATION; Start at 15:30 Bisacodyl (Dulcolax Supp) 10 mg DAILY PRN [place] CONSTIPATION; Start 10/24/16 at 15: 30 Pantoprazole (Protonix Iv) 40 mg DAILY@06 IV Last administered on 10/25/16 06: 27; Admin Dose 40 MG; Start 10/25/16 at 06:00 Morphine Sulfate (morphine) 2 mg Q4H PRN IV SEVERE PAIN LEVEL 7-10; Start at 11:00 Bisacodyl (Dulcolax) 10 mg ONCE ONCE PO ; Start 10/26/16 at 13:00; Stop 10/26/16 at 13:01 Magnesium Citrate (Citroma) 300 ml ONCE ONCE PO ; Start 10/26/16 at 17:30; Stop 10/26/16 at 17:31 Polyethylene Glycol (Miralax) 119 gm ONCE ONCE PO ; Start 10/26/16 at 18:30; Stop 10/26/16 at 18:31 CHRISTIE CLARKE MD Oct 25, 2016 14:38
[2016-10-25 14:45] LABS: INR 1.08; PT RATIO 1.1
[2016-10-25 18:01] LABS: HEMOGLOBIN 9.9 g/dl (14.0-18.0)
[2016-10-25] MEDS: TAMSULOSIN (SR) 0.4 MG CAP PO SCH (20:10)
[2016-10-25] MEDS: ATORVASTATIN 10 MG TAB PO SCH (20:10)
[2016-10-25] MEDS: PROPYLTHIOURACIL 50 MG TAB PO SCH (20:13)
--- NOTE | 2016-10-25 20:20 | RADRPT ---
Echocardiogram Report Patient Name: DAISY GAUTAM Gender: Male Date: 1935 Study Date: 25-Oct-2016 Stogy Roller: FIDELIA Location: I Ref. Physician: HAVEN FERRIS Quality: Adequate Procedures: Transthoracic echocardiogram with complete 2D, M-Mode, and Doppler examination. Indications: Atrial Fibrillation. 2D/M Mode Doppler Measurement Value Normal Ranges Measurement Value Normal Ranges AoR Diam MM 3.1 cm AV Peak Chaz 1.5 m/sec ACS MM 2.0 cm AV Peak PG 9.4 mmHg LVIDd 2D 4.8 3.5 - 5.6 cm LVOT Peak Chaz 1.0 m/sec LVIDs 2D 2.9 2.1 - 4.1 cm LVOT Peak PG 4.0 mmHg LVPWd 2D 0.8 0.6 - 1.1 cm TR Peak Chaz 2.9 m/sec IVSd 2D 1.1 0.6 - 1.1 cm TR Peak PG 33.0 mmHg EDV 2D 110.1 cm3 PV Peak Chaz 1.1 m/sec ESV 2D 25.2 cm3 PV Peak PG 5.0 mmHg LA Dimen 2D 3.9 2.3 - 4.0 cm RVSP 36.0 mmHg Findings Left Ventricle: Normal left ventricular systolic function. Normal left ventricular cavity size. Normal left ventricular wall thickness. Ejection fraction is visually estimated at 5560 %. Tissue Doppler/Mitral Doppler indices are indeterminate in this study due to the presence of atrial fibrillation. Right Ventricle: Normal right ventricular systolic function. Mild enlargement of right ventricle. Left Atrium: There is moderate enlargement of left atrium, best appreciated by apical images. Right Atrium: There is moderate enlargement of right atrium. Atrial Septum: Normal atrial septum. Mitral Valve: Normal appearance of the mitral valve. Trace to mild mitral regurgitation. Aortic Valve: Normal appearance of the aortic valve. Trileaflet aortic valve. Trace aortic valve regurgitation. Tricuspid Valve: Normal appearance of the tricuspid valve. Estimated peak PA systolic pressure 36 mmHg. There is mild tricuspid regurgitation. Pulmonic Valve: Normal pulmonic valve appearance. Pericardium: Normal pericardium with no significant pericardial effusion. Right pleural effusion seen. Aorta: Normal aortic root. IVC: Normal size and normal respiratory collapse consistent with normal right atrial pressure. Pulmonary Artery: Normal pulmonary artery size. Conclusions 1.The left ventricle is normal in size and systolic function. 2.Estimated left ventricular ejection fraction of 55-60%. 3.Moderate bi-atrial enlargement. Electronically Signed By: Librado Diaz 25-Oct-2016 20:18:58 -0700 Patient Name: DAISY GAUTAM Study Date: 25-Oct-[id number]
--- NOTE | 2016-10-25 21:53 | CONS ---
Date/Time of Note Date/Time of Note DATE: 10/25/16 TIME: 21:47 Assessment/Plan Assessment/Plan Chief Complaint/Hosp Course Assessment: Atrial fibrillation, likely chronic - rapid ventricular rates in setting of thyrotoxicosis Thyrotoxicosis - on methimazole and propylthiouracil per endocrinology Hematochezia and anemia - per gastroenterology, planned for colonoscopy Supratherapeutic INR - >10 now corrected to 1.08, ? initial lab error Hypertension Dyslipidemia Benign prostate hyperplasia Recommendations: -echocardiogram showed LVEF 55-60%, moderate bi-atrial enlargement -change metoprolol to 25mg Q6hr -discontinue amlodipine -continue statin -recheck INR tomorrow Problems: Consultation Date/Type/Reason Admit Date/Time Oct 24, 2016 at 12:02 Initial Consult Date 10/25/16 Type of Consultation: Cardiology 24 HR Interval Summary Free Text/Dictation In atrial fibrillation with rapid ventricular rates. Found to have thyrotoxicosis and started on treatment by endocrinology. Detailed Summary Additional Comments 14 point review of systems without changes. Exam/Review of Systems Vital Signs Vitals Vital Signs Date Time Temp Pulse Resp B/P Pulse Ox O2 Delivery O2 Flow Rate FiO2 10/25/16 20:50 2.0 10/25/16 20:16 107 10/25/16 19:38 98.5 18 139/82 96 10/25/16 07:55 Nasal Cannula Intake and Output 10/24/16 10/24/16 10/25/16 15:00 23:00 07:00 Intake Total 1100 ml Balance 1100 ml Exam Constitutional: alert, well developed Psych: nl mood/affect, no complaints Head: atraumatic, normocephalic Eyes: nl conjunctiva, nl lids ENMT: nl external ears & nose, nl nasal mucosa & septum Neck: non-tender, supple, No jvd Respiratory: clear to auscultation Cardiovascular: irregular rhythm Gastrointestinal: non-tender, soft Musculoskeletal: nl extremities to inspection Extremities: No clubbing, No cyanosis, No edema Neurological: nl mental status, nl speech Skin: nl turgor Results Result Diagram: 10/25/16 1752 10/25/16 0738 Results 24 hrs Laboratory Tests Test 10/25/16 07:34 10/25/16 07:38 10/25/16 11:48 10/25/16 12:35 Hemoglobin 9.6 #L 9.7 L Hematocrit 28.8 #L 29.4 L Hemoglobin A1c 5.2 Sodium Level 144 Potassium Level 3.9 Chloride Level 111 H Carbon Dioxide Level 21 Anion Gap 16 Blood Urea Nitrogen 16 Creatinine 0.66 Glucose Level 91 Calcium Level 9.5 Phosphorus Level 3.3 Magnesium Level 1.7 Total Bilirubin 1.2 Direct Bilirubin 0.00 Indirect Bilirubin 1.2 H Aspartate Amino Transf (AST/SGOT) 28 Alanine Aminotransferase (ALT/SGPT) 24 Alkaline Phosphatase 85 Total Protein 5.7 L Albumin 3.0 L Globulin 2.70 Albumin/Globulin Ratio 1.11 Triglycerides Level 84 Cholesterol Level 102 LDL Cholesterol, Calculated 57 HDL Cholesterol 28 L Cholesterol/HDL Ratio 3.6 Thyroid Stimulating Hormone (TSH) < 0.015 L Free Thyroxine Index 9.79 H Thyroxine (T4) 17.6 H Triiodothyronine (T3) Uptake 55.6 H Stool Occult Blood POSITIVE Test 10/25/16 13:55 10/25/16 17:52 Prothrombin Time 14.0 # Prothrombin Time Ratio 1.1 INR International Normalized Ratio 1.08 Hemoglobin 9.9 L Hematocrit 30.0 L Medications Medications Current Medications Amlodipine Besylate (Norvasc) 2.5 mg DAILY PO Last administered on 10/25/16 09: 42; Admin Dose 2.5 MG; Start 10/25/16 at 09:00 Metoprolol Succinate (Toprol Xl) 25 mg DAILY PO Last administered on 10/25/16 09:42; Admin Dose 25 MG; Start 10/25/16 at 09:00 Tamsulosin HCl (Flomax) 0.4 mg HS PO Last administered on 10/25/16 20:10; Admin Dose 0.4 MG; Start 10/24/16 at 21:00 Atorvastatin Calcium 10 mg 10 mg DAILY@21 PO Last administered on 10/25/16 20: 10; Admin Dose 10 MG; Start 10/24/16 at 21:00 Sodium Chloride (NS) 1,000 ml @ 60 mls/hr [id number] IV Last administered on 20:14; Admin Dose 60 MLS/HR; Start 10/24/16 at 15:16 Ondansetron HCl (Zofran Inj) 4 mg Q6H PRN IV NAUSEA AND/OR VOMITING; Start 10/24 at 15:30 Acetaminophen (Tylenol Tab) 650 mg Q6H PRN PO PAIN LEVEL 1-3 OR FEVER; Start at 15:30 Acetaminophen (Tylenol Supp) 650 mg Q6H PRN [place] PAIN LEVEL 1-3 OR FEVER; Start 10/24/16 at 15:30 Acetaminophen/ Hydrocodone Bitart ([place] (5/325)) 1 tab Q6H PRN PO MODERATE PAIN LEVEL 4-6; Start 10/24/16 at 15:30 Acetaminophen/ Hydrocodone Bitart ([place] (5/325)) 2 tab Q6H PRN PO SEVERE PAIN LEVEL 7-10; Start 10/24/16 at 15:30 Docusate Sodium (Colace) 100 mg Q12H PRN PO CONSTIPATION; Start 10/24/16 at 15: 30 Magnesium Hydroxide (Milk Of Mag) 30 ml DAILY PRN PO CONSTIPATION; Start at 15:30 Bisacodyl (Dulcolax Supp) 10 mg DAILY PRN [place] CONSTIPATION; Start 10/24/16 at 15: 30 Pantoprazole (Protonix Iv) 40 mg DAILY@06 IV Last administered on 10/25/16 06: 27; Admin Dose 40 MG; Start 10/25/16 at 06:00 Morphine Sulfate (morphine) 2 mg Q4H PRN IV SEVERE PAIN LEVEL 7-10; Start at 11:00 Bisacodyl (Dulcolax) 10 mg ONCE ONCE PO ; Start 10/26/16 at 13:00; Stop 10/26/16 at 13:01 Magnesium Citrate (Citroma) 300 ml ONCE ONCE PO ; Start 10/26/16 at 17:30; Stop 10/26/16 at 17:31 Polyethylene Glycol (Miralax) 119 gm ONCE ONCE PO ; Start 10/26/16 at 18:30; Stop 10/26/16 at 18:31 Propylthiouracil (Ptu) 300 mg TID PO Last administered on 10/25/16 20:13; Admin Dose 300 MG; Start 10/25/16 at 21:00; Stop 10/26/16 at 20:59 Methimazole (Tapazole) 20 mg QAM PO ; Start 10/26/16 at 09:00 VINICIO BRAGA MD Oct 25, 2016 21:53
[2016-10-26] VITALS (11 sets, daily range): BP systolic 115–146; BP diastolic 60–82; PULSE 92–135; RESP 18–21
[2016-10-26 01:00] LABS: HEMATOCRIT 29.8 % (42.0-52.0); HEMOGLOBIN 9.8 g/dl (14.0-18.0)
[2016-10-26] MEDS: METOPROLOL 25 MG TAB PO SCH ×3 (01:02→12:58)
--- NOTE | 2016-10-26 01:24 | RADRPT ---
PROCEDURE: US thyroid. CLINICAL INDICATION: Abnormal thyroid profile, tachycardia TECHNIQUE: Multiple sonographic images of the thyroid were obtained utilizing a linear array trans ducer with grayscale and color-flow and a Doppler imaging. The images were reviewed on a high-resolu [employer] PACS workstation. COMPARISON: No prior studies are available for comparison. FINDINGS: The right lobe measures 4.4 x 2.5 x 1.8 cm. There is a 1.8 cm mixed solid and cystic nodule with a small amount of internal vascular flow and appearance of small internal calcifications in the lower right lobe. There are 3 calcified solid nodules in the mid to lower right lobe the largest 9 mm. Th ere is a 1.2 cm solid nodule with considerable internal vascular flow in the upper right lobe. The left lobe measures 4.2 x 1.4 x 2 cm. No left thyroid nodule is seen. The isthmus measures 2.7 mm. IMPRESSION: Multiple right thyroid nodules. Consider biopsy of 1.8 cm mixed solid and cystic nodule with a smal l amount of internal vascular flow and appearance of small internal calcifications in the lower righ t lobe and 1.2 cm solid nodule with considerable internal vascular flow in the upper right lobe. RPTAT: HJES .Dillon Osborne MD, MD Date Time Electronically viewed and signed by .Dillon Osborne MD, on 10/26/2016 01:24 .S/
[2016-10-26] MEDS: PANTOPRAZOLE 40 MG INJ IV SCH (05:25)
[2016-10-26 07:12] LABS: BASOPHILS % 0.6 % (0.0-2.0); EOSINOPHILS # 0.5 10^3/ul (0.0-0.5); EOSINOPHILS % 6.9 % (0.0-7.0); HEMATOCRIT 29.2 % (42.0-52.0); HEMOGLOBIN 9.6 g/dl (14.0-18.0); LYMPHOCYTES # 1.2 10^3/ul (0.8-2.9); LYMPHOCYTES % 16.8 % (15.0-51.0); MEAN CORPUSCULAR HEMOGLOBIN 30.2 pg (29.0-33.0); MEAN CORPUSCULAR HGB CONC 32.9 g/dl (32.0-37.0); MEAN CORPUSCULAR VOLUME 91.8 fl (82.0-101.0); MEAN PLATELET VOLUME 10.1 fl (7.4-10.4); MONOCYTE # 0.8 10^3/ul (0.3-0.9); MONOCYTES % 11.2 % (0.0-11.0); NEUTROPHIL # 4.6 10^3/ul (1.6-7.5); NEUTROPHILS % 64.1 % (39.0-77.0); PLATELET COUNT 150 10^3/UL (140-415); RED BLOOD COUNT 3.18 10^6/ul (4.70-6.10); RED CELL DISTRIBUTION WIDTH 14.9 % (11.5-14.5); WHITE BLOOD COUNT 7.2 10^3/ul (4.8-10.8)
[2016-10-26 07:28] LABS: INR 1.11; PROTIME 14.3 Sec (12.2-14.2); PT RATIO 1.1
[2016-10-26 07:34] LABS: CALCIUM 9.2 mg/dl (8.4-10.2); CREATININE 0.66 mg/dl (0.61-1.24); POTASSIUM 3.9 mmol/L (3.5-5.1)
[2016-10-26] MEDS: METHIMAZOLE 5 MG TAB PO SCH (08:34)
[2016-10-26] MEDS: PROPYLTHIOURACIL 50 MG TAB PO SCH ×2 (08:34→12:58)
--- NOTE | 2016-10-26 12:09 | PN ---
Date/Time of Note Date/Time of Note DATE: 10/26/16 TIME: 12:07 Assessment/Plan VTE Prophylaxis VTE Prophylaxis Intervention: contraindicated Lines/Catheters IV Catheter Type (from [facility]): Peripheral IV Urinary Cath still in place: No Assessment/Plan Chief Complaint/Hosp Course Impression and plan 1. Hematochezia and anemia. Patient with supratherapeutic INR and was taking warfarin without having his level checked. Patient given K Centra as well as vitamin K in the ER with good response. Monitor H&H and also monitor INR level. Burner Hand following. Tentative plan for colonoscopy. Will follow up 2. A. fib with RVR. Continue regimen per risk investigator. Also seen with a regular thyroid function. Will get fruit checker to follow. 3. Essential hypertension. Will resume patient's antihypertensives and adjust as needed. Stable 4. History dyslipidemia. Continue on statin 5. BPH. Patient resumed on his home regimen 6. Hyperthyroid. On propylthiouracil and methimazole for fruit checker . Disposition and plan: Tentative plan for colonoscopy. Monitor INR. Coumadin per [employer]. Discussed plan of care with Dr. Arenas Problems: Subjective 24 Hr Interval Summary Free Text/Dictation Comfortable at present. No signs or symptoms of distress seen Exam/Review of Systems Vital Signs Vitals Vital Signs Date Time Temp Pulse Resp B/P Pulse Ox O2 Delivery O2 Flow Rate FiO2 10/26/16 10:27 Nasal Cannula 2.0 10/26/16 08:02 98.2 62 18 121/76 100 Intake and Output 10/25/16 10/25/16 10/26/16 14:59 22:59 06:59 Intake Total 240 ml 700 ml 520 ml Output Total 850 ml 800 ml 600 ml Balance -610 ml -100 ml -80 ml Exam Constitutional: alert, oriented Psych: nl mood/affect Head: normocephalic Respiratory: normal air movement Cardiovascular: other, afib Gastrointestinal: non-tender, soft Musculoskeletal: swelling ble, minimal Neurological: LAMP DEVELOPER II-XII intact, nl mental status, nl speech Results Result Diagram: 10/26/16 0639 10/26/16 0639 Results 24 hrs Laboratory Tests Test 10/25/16 12:35 10/25/16 13:55 10/25/16 17:52 10/26/16 00:40 Stool Occult Blood POSITIVE Prothrombin Time 14.0 # Prothrombin Time Ratio 1.1 INR International Normalized Ratio 1.08 Hemoglobin 9.9 L 9.8 L Hematocrit 30.0 L 29.8 L Test 10/26/16 06:39 10/26/16 07:34 White Blood Count 7.2 Red Blood Count 3.18 L Hemoglobin 9.6 L Hematocrit 29.2 L Mean Corpuscular Volume 91.8 Mean Corpuscular Hemoglobin 30.2 Mean Corpuscular Hemoglobin Concent 32.9 Red Cell Distribution Width 14.9 H Platelet Count 150 Mean Platelet Volume 10.1 Neutrophils % 64.1 Lymphocytes % 16.8 Monocytes % 11.2 H Eosinophils % 6.9 Basophils % 0.6 Nucleated Red Blood Cells % 0.0 Neutrophils # 4.6 Lymphocytes # 1.2 Monocytes # 0.8 Eosinophils # 0.5 Basophils # 0.0 Nucleated Red Blood Cells # 0.0 Prothrombin Time 14.3 H Prothrombin Time Ratio 1.1 INR International Normalized Ratio 1.11 Sodium Level 145 H Potassium Level 3.9 Chloride Level 109 Carbon Dioxide Level 23 Anion Gap 17 H Blood Urea Nitrogen 13 Creatinine 0.66 Glucose Level 88 Calcium Level 9.2 Lab Scanned Report BLOOD TRANSFUSION Medications Medications Current Medications Tamsulosin HCl (Flomax) 0.4 mg HS PO Last administered on 10/25/16 20:10; Admin Dose 0.4 MG; Start 10/24/16 at 21:00 Atorvastatin Calcium 10 mg 10 mg DAILY@21 PO Last administered on 10/25/16 20: 10; Admin Dose 10 MG; Start 10/24/16 at 21:00 Sodium Chloride (NS) 1,000 ml @ 60 mls/hr [id number] IV Last administered on 20:14; Admin Dose 60 MLS/HR; Start 10/24/16 at 15:16 Ondansetron HCl (Zofran Inj) 4 mg Q6H PRN IV NAUSEA AND/OR VOMITING; Start 10/24 at 15:30 Acetaminophen (Tylenol Tab) 650 mg Q6H PRN PO PAIN LEVEL 1-3 OR FEVER; Start at 15:30 Acetaminophen (Tylenol Supp) 650 mg Q6H PRN [place] PAIN LEVEL 1-3 OR FEVER; Start 10/24/16 at 15:30 Acetaminophen/ Hydrocodone Bitart ([place] (5/325)) 1 tab Q6H PRN PO MODERATE PAIN LEVEL 4-6; Start 10/24/16 at 15:30 Acetaminophen/ Hydrocodone Bitart ([place] (5/325)) 2 tab Q6H PRN PO SEVERE PAIN LEVEL 7-10; Start 10/24/16 at 15:30 Docusate Sodium (Colace) 100 mg Q12H PRN PO CONSTIPATION; Start 10/24/16 at 15: 30 Magnesium Hydroxide (Milk Of Mag) 30 ml DAILY PRN PO CONSTIPATION; Start at 15:30 Bisacodyl (Dulcolax Supp) 10 mg DAILY PRN [place] CONSTIPATION; Start 10/24/16 at 15: 30 Pantoprazole (Protonix Iv) 40 mg DAILY@06 IV Last administered on 10/26/16 05: 25; Admin Dose 40 MG; Start 10/25/16 at 06:00 Morphine Sulfate (morphine) 2 mg Q4H PRN IV SEVERE PAIN LEVEL 7-10; Start at 11:00 Bisacodyl (Dulcolax) 10 mg ONCE ONCE PO ; Start 10/26/16 at 13:00; Stop 10/26/16 at 13:01 Magnesium Citrate (Citroma) 300 ml ONCE ONCE PO ; Start 10/26/16 at 17:30; Stop 10/26/16 at 17:31 Polyethylene Glycol (Miralax) 119 gm ONCE ONCE PO ; Start 10/26/16 at 18:30; Stop 10/26/16 at 18:31 Propylthiouracil (Ptu) 300 mg TID PO Last administered on 10/26/16 08:34; Admin Dose 300 MG; Start 10/25/16 at 21:00; Stop 10/26/16 at 20:59 Methimazole (Tapazole) 20 mg QAM PO Last administered on 10/26/16 08:34; Admin Dose 20 MG; Start 10/26/16 at 09:00 Metoprolol Tartrate (Lopressor) 25 mg Q6 PO Last administered on 10/26/16 05:24 ; Admin Dose 25 MG; Start 10/26/16 at 00:00 HAVEN FERRIS Oct 26, 2016 12:09
[2016-10-26] MEDS ORDERED: BISACODYL (EC) 5 MG TAB PO ONE (13:00)
[2016-10-26] MEDS: SOD CHLORIDE 0.9% 1,000 ML IV SCH (13:06)
--- NOTE | 2016-10-26 13:42 | CONS ---
Date/Time of Note Date/Time of Note DATE: 10/26/16 TIME: 13:39 Assessment/Plan Assessment/Plan Chief Complaint/Hosp Course 81-year-old [place] gentleman who receives his care at [facility]. He reports no prior history of ever having been told of any type of thyroid disorder. He did have some odynophagia in the remote past. He reports in the last 1 month he had been identified as having atrial fibrillation at an urgent care center. He was placed on anticoagulation has now come in with a significant GI bleed. On careful review of systems he has had symptoms of hyperthyroidism for at least 6 months if not much longer Problems: (1) Thyrotoxicosis Status: Chronic Comment: He has tolerated the loading dosage with the PTU. I gave this for 1 day as as much more prominent effect on the conversion of T4-T3 in the methimazole. He should now be on the methimazole and will follow along. Please note he is not formally in the storm as he does not have fever alterations in mental status seizures etc. However he was really close. He should come under control nicely. I am in concurrence with getting rid of the amlodipine and using a higher dose of beta-sarath to control him. 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 However there is no hope of trying to convert him to normal rhythm without treating the thyrotoxicosis. In addition the anticoagulation for this will have to be dealt with after we know more about what is going on with his GI tract. Consultation Date/Type/Reason Admit Date/Time Oct 24, 2016 at 12:02 Initial Consult Date 10/25/16 Type of Consultation: Endocrinology Reason for Consultation Severe thyrotoxicosis with complications, but not in storm Referring Provider: GIANLUCA VILLA 24 HR Interval Summary Free Text/Dictation Patient reports he feels relatively similar to yesterday. Constitutional: no complaints Detailed Summary Respiratory: shortness of breath Cardiovascular: palpitations Gastrointestinal: diarrhea Genitourinary: no complaints Exam/Review of Systems Vital Signs Vitals Vital Signs Date Time Temp Pulse Resp B/P Pulse Ox O2 Delivery O2 Flow Rate FiO2 10/26/16 12:07 98.2 111 21 146/82 97 10/26/16 10:27 Nasal Cannula 2.0 Intake and Output 10/25/16 10/25/16 10/26/16 15:00 23:00 07:00 Intake Total 240 ml 700 ml 520 ml Output Total 850 ml 800 ml 600 ml Balance -610 ml -100 ml -80 ml Exam Constitutional: alert, oriented Neck: thyromegaly (Multinodular thyroid gland) Cardiovascular: irregular rhythm Gastrointestinal: nl liver, spleen, non-tender, soft Results Result Diagram: 10/26/16 0639 10/26/16 0639 Results 24 hrs Laboratory Tests Test 10/25/16 13:55 10/25/16 17:52 10/26/16 00:40 10/26/16 06:39 Prothrombin Time 14.0 # 14.3 H Prothrombin Time Ratio 1.1 1.1 INR International Normalized Ratio 1.08 1.11 Hemoglobin 9.9 L 9.8 L 9.6 L Hematocrit 30.0 L 29.8 L 29.2 L White Blood Count 7.2 Red Blood Count 3.18 L Mean Corpuscular Volume 91.8 Mean Corpuscular Hemoglobin 30.2 Mean Corpuscular Hemoglobin Concent 32.9 Red Cell Distribution Width 14.9 H Platelet Count 150 Mean Platelet Volume 10.1 Neutrophils % 64.1 Lymphocytes % 16.8 Monocytes % 11.2 H Eosinophils % 6.9 Basophils % 0.6 Nucleated Red Blood Cells % 0.0 Neutrophils # 4.6 Lymphocytes # 1.2 Monocytes # 0.8 Eosinophils # 0.5 Basophils # 0.0 Nucleated Red Blood Cells # 0.0 Sodium Level 145 H Potassium Level 3.9 Chloride Level 109 Carbon Dioxide Level 23 Anion Gap 17 H Blood Urea Nitrogen 13 Creatinine 0.66 Glucose Level 88 Calcium Level 9.2 Test 10/26/16 07:34 Lab Scanned Report BLOOD TRANSFUSION Medications Medications Current Medications Tamsulosin HCl (Flomax) 0.4 mg HS PO Last administered on 10/25/16 20:10; Admin Dose 0.4 MG; Start 10/24/16 at 21:00 Atorvastatin Calcium 10 mg 10 mg DAILY@21 PO Last administered on 10/25/16 20: 10; Admin Dose 10 MG; Start 10/24/16 at 21:00 Sodium Chloride (NS) 1,000 ml @ 60 mls/hr [id number] IV Last administered on 13:06; Admin Dose 60 MLS/HR; Start 10/24/16 at 15:16 Ondansetron HCl (Zofran Inj) 4 mg Q6H PRN IV NAUSEA AND/OR VOMITING; Start 10/24 at 15:30 Acetaminophen (Tylenol Tab) 650 mg Q6H PRN PO PAIN LEVEL 1-3 OR FEVER; Start at 15:30 Acetaminophen (Tylenol Supp) 650 mg Q6H PRN [place] PAIN LEVEL 1-3 OR FEVER; Start 10/24/16 at 15:30 Acetaminophen/ Hydrocodone Bitart ([place] (5/325)) 1 tab Q6H PRN PO MODERATE PAIN LEVEL 4-6; Start 10/24/16 at 15:30 Acetaminophen/ Hydrocodone Bitart ([place] (5/325)) 2 tab Q6H PRN PO SEVERE PAIN LEVEL 7-10; Start 10/24/16 at 15:30 Docusate Sodium (Colace) 100 mg Q12H PRN PO CONSTIPATION; Start 10/24/16 at 15: 30 Magnesium Hydroxide (Milk Of Mag) 30 ml DAILY PRN PO CONSTIPATION; Start at 15:30 Bisacodyl (Dulcolax Supp) 10 mg DAILY PRN [place] CONSTIPATION; Start 10/24/16 at 15: 30 Pantoprazole (Protonix Iv) 40 mg DAILY@06 IV Last administered on 10/26/16 05: 25; Admin Dose 40 MG; Start 10/25/16 at 06:00 Morphine Sulfate (morphine) 2 mg Q4H PRN IV SEVERE PAIN LEVEL 7-10; Start at 11:00 Magnesium Citrate (Citroma) 300 ml ONCE ONCE PO ; Start 10/26/16 at 17:30; Stop 10/26/16 at 17:31 Polyethylene Glycol (Miralax) 119 gm ONCE ONCE PO ; Start 10/26/16 at 18:30; Stop 10/26/16 at 18:31 Propylthiouracil (Ptu) 300 mg TID PO Last administered on 10/26/16 12:58; Admin Dose 300 MG; Start 10/25/16 at 21:00; Stop 10/26/16 at 20:59 Methimazole (Tapazole) 20 mg QAM PO Last administered on 10/26/16 08:34; Admin Dose 20 MG; Start 10/26/16 at 09:00 Metoprolol Tartrate (Lopressor) 25 mg Q6 PO Last administered on 10/26/16 12:58 ; Admin Dose 25 MG; Start 10/26/16 at 00:00 CHRISTIE CLARKE MD Oct 26, 2016 13:42
--- NOTE | 2016-10-26 16:27 | PN ---
Date/Time of Note Date/Time of Note DATE: 10/26/16 TIME: 16:23 Assessment/Plan VTE Prophylaxis VTE Prophylaxis Intervention: SCD's Lines/Catheters IV C[facility]ter Type (from [facility]): Peripheral IV Urinary Cath still in place: No Assessment/Plan Assessment/Plan Assessment * Anemia * GI bleeding /Hematochezia * Supra Therapeutic INR/corrected * Atrial fibrillation with RVR * Hypertension Plan * Colonoscopy tomorrow. Patient informed procedure including risks, benefits and alternatives. Agreeable to proceed. * Continue to monitor for evidence of further bleeding Subjective 24 Hr Interval Summary Free Text/Dictation Course reviewed with nursing staff No evidence of overt gastrointestinal bleeding About to start colonoscopy prep Coagulopathy corrected Exam/Review of Systems Vital Signs Vitals Vital Signs Date Time Temp Pulse Resp B/P Pulse Ox O2 Delivery O2 Flow Rate FiO2 10/26/16 16:14 97.6 113 18 117/71 99 10/26/16 10:27 Nasal Cannula 2.0 Intake and Output 10/25/16 10/25/16 10/26/16 15:00 23:00 07:00 Intake Total 240 ml 700 ml 520 ml Output Total 850 ml 800 ml 600 ml Balance -610 ml -100 ml -80 ml Exam Constitutional: alert, oriented, well developed Head: atraumatic, normocephalic Eyes: EOMI, PERRL, nl conjunctiva, nl lids, nl sclera ENMT: nl external ears & nose, nl lips & teeth, nl nasal mucosa & septum Neck: non-tender, supple Respiratory: clear to auscultation, normal air movement Cardiovascular: irregular rhythm, nl pulses Gastrointestinal: distended, nl liver, spleen, non-tender, soft Musculoskeletal: nl extremities to inspection, nl gait and stance Extremities: normal pulses Skin: nl turgor, No rash or lesions Lymph: nl lymph nodes Results Result Diagram: 10/26/16 0639 10/26/16 0639 Results 24 hrs Laboratory Tests Test 10/25/16 17:52 10/26/16 00:40 10/26/16 06:39 10/26/16 07:34 Hemoglobin 9.9 L 9.8 L 9.6 L Hematocrit 30.0 L 29.8 L 29.2 L White Blood Count 7.2 Red Blood Count 3.18 L Mean Corpuscular Volume 91.8 Mean Corpuscular Hemoglobin 30.2 Mean Corpuscular Hemoglobin Concent 32.9 Red Cell Distribution Width 14.9 H Platelet Count 150 Mean Platelet Volume 10.1 Neutrophils % 64.1 Lymphocytes % 16.8 Monocytes % 11.2 H Eosinophils % 6.9 Basophils % 0.6 Nucleated Red Blood Cells % 0.0 Neutrophils # 4.6 Lymphocytes # 1.2 Monocytes # 0.8 Eosinophils # 0.5 Basophils # 0.0 Nucleated Red Blood Cells # 0.0 Prothrombin Time 14.3 H Prothrombin Time Ratio 1.1 INR International Normalized Ratio 1.11 Sodium Level 145 H Potassium Level 3.9 Chloride Level 109 Carbon Dioxide Level 23 Anion Gap 17 H Blood Urea Nitrogen 13 Creatinine 0.66 Glucose Level 88 Calcium Level 9.2 Lab Scanned Report BLOOD TRANSFUSION Medications Medications Current Medications Tamsulosin HCl (Flomax) 0.4 mg HS PO Last administered on 10/25/16 20:10; Admin Dose 0.4 MG; Start 10/24/16 at 21:00 Atorvastatin Calcium 10 mg 10 mg DAILY@21 PO Last administered on 10/25/16 20: 10; Admin Dose 10 MG; Start 10/24/16 at 21:00 Sodium Chloride (NS) 1,000 ml @ 60 mls/hr [id number] IV Last administered on 13:06; Admin Dose 60 MLS/HR; Start 10/24/16 at 15:16 Ondansetron HCl (Zofran Inj) 4 mg Q6H PRN IV NAUSEA AND/OR VOMITING; Start 10/24 at 15:30 Acetaminophen (Tylenol Tab) 650 mg Q6H PRN PO PAIN LEVEL 1-3 OR FEVER; Start at 15:30 Acetaminophen (Tylenol Supp) 650 mg Q6H PRN [place] PAIN LEVEL 1-3 OR FEVER; Start 10/24/16 at 15:30 Acetaminophen/ Hydrocodone Bitart ([place] (5/325)) 1 tab Q6H PRN PO MODERATE PAIN LEVEL 4-6; Start 10/24/16 at 15:30 Acetaminophen/ Hydrocodone Bitart ([place] (5/325)) 2 tab Q6H PRN PO SEVERE PAIN LEVEL 7-10; Start 10/24/16 at 15:30 Docusate Sodium (Colace) 100 mg Q12H PRN PO CONSTIPATION; Start 10/24/16 at 15: 30 Magnesium Hydroxide (Milk Of Mag) 30 ml DAILY PRN PO CONSTIPATION; Start at 15:30 Bisacodyl (Dulcolax Supp) 10 mg DAILY PRN [place] CONSTIPATION; Start 10/24/16 at 15: 30 Pantoprazole (Protonix Iv) 40 mg DAILY@06 IV Last administered on 10/26/16 05: 25; Admin Dose 40 MG; Start 10/25/16 at 06:00 Morphine Sulfate (morphine) 2 mg Q4H PRN IV SEVERE PAIN LEVEL 7-10; Start at 11:00 Magnesium Citrate (Citroma) 300 ml ONCE ONCE PO ; Start 10/26/16 at 17:30; Stop 10/26/16 at 17:31 Polyethylene Glycol (Miralax) 119 gm ONCE ONCE PO ; Start 10/26/16 at 18:30; Stop 10/26/16 at 18:31 Propylthiouracil (Ptu) 300 mg TID PO Last administered on 10/26/16 12:58; Admin Dose 300 MG; Start 10/25/16 at 21:00; Stop 10/26/16 at 20:59 Methimazole (Tapazole) 20 mg QAM PO Last administered on 10/26/16 08:34; Admin Dose 20 MG; Start 10/26/16 at 09:00 Metoprolol Tartrate (Lopressor) 50 mg Q6 PO ; Start 10/26/16 at 18:00 HARVEY CABELLO MD Oct 26, 2016 16:27
[2016-10-26] MEDS ORDERED: MAGNESIUM CITRATE 300 ML BTL PO ONE (17:30)
[2016-10-26] MEDS: METOPROLOL 50 MG TAB PO SCH (18:01)
[2016-10-26] MEDS ORDERED: POLYETHYLENE GLYCOL 3350 119 GM POWDER PO ONE (18:30)
[2016-10-26] MEDS: ATORVASTATIN 10 MG TAB PO SCH (20:22)
[2016-10-26] MEDS: TAMSULOSIN (SR) 0.4 MG CAP PO SCH (20:22)
[2016-10-27] VITALS (19 sets, daily range): BP systolic 110–155; BP diastolic 60–86; PULSE 80–129; RESP 14–28
[2016-10-27] MEDS: METOPROLOL 50 MG TAB PO SCH ×4 (00:33→18:00)
[2016-10-27] MEDS: PANTOPRAZOLE 40 MG INJ IV SCH (05:13)
[2016-10-27] MEDS: SOD CHLORIDE 0.9% 1,000 ML IV SCH (05:20)
[2016-10-27] MEDS ORDERED: POLYETHYLENE GLYCOL 3350 119 GM POWDER PO ONE (06:00)
[2016-10-27 06:34] LABS: BASOPHIL # 0.1 10^3/ul (0.0-0.1); BASOPHILS % 0.7 % (0.0-2.0); EOSINOPHILS # 0.3 10^3/ul (0.0-0.5); EOSINOPHILS % 4.4 % (0.0-7.0); HEMATOCRIT 29.9 % (42.0-52.0); HEMOGLOBIN 9.5 g/dl (14.0-18.0); LYMPHOCYTES % 13.9 % (15.0-51.0); MEAN CORPUSCULAR HEMOGLOBIN 29.4 pg (29.0-33.0); MEAN CORPUSCULAR HGB CONC 31.8 g/dl (32.0-37.0); MEAN CORPUSCULAR VOLUME 92.6 fl (82.0-101.0); MONOCYTE # 0.8 10^3/ul (0.3-0.9); MONOCYTES % 11.3 % (0.0-11.0); NEUTROPHIL # 4.9 10^3/ul (1.6-7.5); NEUTROPHILS % 69.3 % (39.0-77.0); PLATELET COUNT 161 10^3/UL (140-415); RED BLOOD COUNT 3.23 10^6/ul (4.70-6.10); RED CELL DISTRIBUTION WIDTH 15.2 % (11.5-14.5); WHITE BLOOD COUNT 7.1 10^3/ul (4.8-10.8)
[2016-10-27 07:24] LABS: CALCIUM 9.6 mg/dl (8.4-10.2); CREATININE 0.63 mg/dl (0.61-1.24); POTASSIUM 3.7 mmol/L (3.5-5.1)
[2016-10-27] MEDS ORDERED: BISACODYL (EC) 5 MG TAB PO ONE (08:00)
[2016-10-27] MEDS: METHIMAZOLE 5 MG TAB PO SCH (08:53)
--- NOTE | 2016-10-27 15:26 | CONS ---
Date/Time of Note Date/Time of Note DATE: 10/27/16 TIME: 15:23 Assessment/Plan Assessment/Plan Chief Complaint/Hosp Course Assessment: Atrial fibrillation, likely chronic - rapid ventricular rates in setting of thyrotoxicosis Thyrotoxicosis - status post propylthiouracil, on methimazole per endocrinology Hematochezia and anemia - per gastroenterology, planned for colonoscopy Supratherapeutic INR - >10 now corrected to 1.08, ? initial lab error Hypertension Dyslipidemia Benign prostate hyperplasia Recommendations: -echocardiogram showed LVEF 55-60%, moderate bi-atrial enlargement -metoprolol has been increased to 50mg Q6hr -further recommendations on anticoagulation after gastroenterology work up completed -continue statin Problems: Consultation Date/Type/Reason Admit Date/Time Oct 24, 2016 at 12:02 Initial Consult Date 10/25/16 Type of Consultation: Cardiology 24 HR Interval Summary Free Text/Dictation In atrial fibrillation with intermittent rapid ventricular rates. Planned for colonoscopy today. Detailed Summary Additional Comments 14 point review of systems without changes. Exam/Review of Systems Vital Signs Vitals Vital Signs Date Time Temp Pulse Resp B/P Pulse Ox O2 Delivery O2 Flow Rate FiO2 10/27/16 12:10 111 10/27/16 11:35 98.3 20 112/83 100 10/27/16 08:00 Nasal Cannula 2.0 Intake and Output 10/26/16 10/26/16 10/27/16 15:00 23:00 07:00 Intake Total 720 ml 1400 ml Output Total 750 ml 200 ml Balance -30 ml 1200 ml Exam Constitutional: alert, well developed Psych: nl mood/affect, no complaints Head: atraumatic, normocephalic Eyes: nl conjunctiva, nl lids ENMT: nl external ears & nose, nl nasal mucosa & septum Neck: non-tender, supple, No jvd Respiratory: clear to auscultation Cardiovascular: irregular rhythm Gastrointestinal: non-tender, soft Musculoskeletal: nl extremities to inspection Extremities: No clubbing, No cyanosis, No edema Neurological: nl mental status, nl speech Skin: nl turgor Results Result Diagram: 10/27/16 0535 10/27/16 0535 Results 24 hrs Laboratory Tests Test 10/27/16 05:35 White Blood Count 7.1 Red Blood Count 3.23 L Hemoglobin 9.5 L Hematocrit 29.9 L Mean Corpuscular Volume 92.6 Mean Corpuscular Hemoglobin 29.4 Mean Corpuscular Hemoglobin Concent 31.8 L Red Cell Distribution Width 15.2 H Platelet Count 161 Mean Platelet Volume 10.0 Neutrophils % 69.3 Lymphocytes % 13.9 L Monocytes % 11.3 H Eosinophils % 4.4 Basophils % 0.7 Nucleated Red Blood Cells % 0.0 Neutrophils # 4.9 Lymphocytes # 1.0 Monocytes # 0.8 Eosinophils # 0.3 Basophils # 0.1 Nucleated Red Blood Cells # 0.0 Sodium Level 146 H Potassium Level 3.7 Chloride Level 107 Carbon Dioxide Level 23 Anion Gap 20 H Blood Urea Nitrogen 11 Creatinine 0.63 Glucose Level 72 Calcium Level 9.6 Medications Medications Current Medications Tamsulosin HCl (Flomax) 0.4 mg HS PO Last administered on 10/26/16 20:22; Admin Dose 0.4 MG; Start 10/24/16 at 21:00 Atorvastatin Calcium 10 mg 10 mg DAILY@21 PO Last administered on 10/26/16 20: 22; Admin Dose 10 MG; Start 10/24/16 at 21:00 Sodium Chloride (NS) 1,000 ml @ 60 mls/hr [id number] IV Last administered on 05:20; Admin Dose 60 MLS/HR; Start 10/24/16 at 15:16 Ondansetron HCl (Zofran Inj) 4 mg Q6H PRN IV NAUSEA AND/OR VOMITING; Start 10/24 at 15:30 Acetaminophen (Tylenol Tab) 650 mg Q6H PRN PO PAIN LEVEL 1-3 OR FEVER; Start at 15:30 Acetaminophen (Tylenol Supp) 650 mg Q6H PRN [place] PAIN LEVEL 1-3 OR FEVER; Start 10/24/16 at 15:30 Acetaminophen/ Hydrocodone Bitart ([place] (5/325)) 1 tab Q6H PRN PO MODERATE PAIN LEVEL 4-6; Start 10/24/16 at 15:30 Acetaminophen/ Hydrocodone Bitart ([place] (5/325)) 2 tab Q6H PRN PO SEVERE PAIN LEVEL 7-10; Start 10/24/16 at 15:30 Docusate Sodium (Colace) 100 mg Q12H PRN PO CONSTIPATION; Start 10/24/16 at 15: 30 Magnesium Hydroxide (Milk Of Mag) 30 ml DAILY PRN PO CONSTIPATION; Start at 15:30 Bisacodyl (Dulcolax Supp) 10 mg DAILY PRN [place] CONSTIPATION; Start 10/24/16 at 15: 30 Pantoprazole (Protonix Iv) 40 mg DAILY@06 IV Last administered on 10/27/16 05: 13; Admin Dose 40 MG; Start 10/25/16 at 06:00 Morphine Sulfate (morphine) 2 mg Q4H PRN IV SEVERE PAIN LEVEL 7-10; Start at 11:00 Methimazole (Tapazole) 20 mg QAM PO Last administered on 10/27/16 08:53; Admin Dose 20 MG; Start 10/26/16 at 09:00 Metoprolol Tartrate (Lopressor) 50 mg Q6 PO Last administered on 10/27/16 11:49 ; Admin Dose 50 MG; Start 10/26/16 at 18:00 VINICIO BRAGA MD Oct 27, 2016 15:26
[2016-10-27] MEDS ORDERED: PROPOFOL 20 ML ONE (18:26)
--- NOTE | 2016-10-27 18:49 | OPR ---
Date/Time of Note Date/Time of Note DATE: 10/27/16 TIME: 18:46 Operative Report Preoperative Diagnosis Hematochezia Postoperative Diagnosis Impression: * Large internal hemorrhoids, likely source of hematochezia * Otherwise normal colonoscopy to cecum Plan: * Advance diet as tolerated * Avoid anticoagulation if possible and if necessary monitor closely to avoid over anticoagulation . Operation/Procedure Performed Colonoscopy to cecum Surgeon: HARVEY CABELLO MD Anesthesia Type: MAC Estimated Blood Loss: none Transfusion Required: no Specimen: none Grafts/Implants: none Complications: no HARVEY CABELLO MD Oct 27, 2016 18:49
--- NOTE | 2016-10-27 19:01 | PN ---
Date/Time of Note Date/Time of Note DATE: 10/27/16 TIME: 19:00 Assessment/Plan VTE Prophylaxis VTE Prophylaxis Intervention: contraindicated Lines/Catheters IV [facility]from [facility]): Peripheral IV Urinary Cath still in place: No Assessment/Plan Chief Complaint/Hosp Course 1. Hematochezia. The patient is scheduled for a colonoscopy today. 2. Normocytic, normochromic anemia. Most probably anemia of acute blood loss. Anticoagulation on hold. Transfuse blood products as needed. Continue proton pump inhibitors. 3. Atrial fibrillation with rapid ventricular response. The patient being followed by cardiology. Rate controlled. 4. Hyperthyroidism. Continue management as per endocrinology. 5. Essential hypertension. Continue antihypertensives. 6. Dyslipidemia. Continue statins. 7. Benign prostatic hypertrophy. Continue tamsulosin. 8. Fluids, electrolytes, and nutrition. NPO for procedure. 9. Gastrointestinal prophylaxis. Proton pump inhibitors. 10. DVT prophylaxis. Contraindicated because of current GI bleeding 11. Plan. Continue current management. Await colonoscopy. Case discussed with Dr. Fitzpatrick. Problems: Subjective 24 Hr Interval Summary Free Text/Dictation The patient went down for colonoscopy. Exam/Review of Systems Vital Signs Vitals Vital Signs Date Time Temp Pulse Resp B/P Pulse Ox O2 Delivery O2 Flow Rate FiO2 10/27/16 17:00 99.1 117 28 155/82 100 Nasal Cannula 4.0 Intake and Output 10/26/16 10/26/16 10/27/16 15:00 23:00 07:00 Intake Total 720 ml 1400 ml Output Total 750 ml 200 ml Balance -30 ml 1200 ml Exam Patient not on the floor. Results Result Diagram: 10/27/16 0535 10/27/16 0535 Results 24 hrs Laboratory Tests Test 10/27/16 05:35 White Blood Count 7.1 Red Blood Count 3.23 L Hemoglobin 9.5 L Hematocrit 29.9 L Mean Corpuscular Volume 92.6 Mean Corpuscular Hemoglobin 29.4 Mean Corpuscular Hemoglobin Concent 31.8 L Red Cell Distribution Width 15.2 H Platelet Count 161 Mean Platelet Volume 10.0 Neutrophils % 69.3 Lymphocytes % 13.9 L Monocytes % 11.3 H Eosinophils % 4.4 Basophils % 0.7 Nucleated Red Blood Cells % 0.0 Neutrophils # 4.9 Lymphocytes # 1.0 Monocytes # 0.8 Eosinophils # 0.3 Basophils # 0.1 Nucleated Red Blood Cells # 0.0 Sodium Level 146 H Potassium Level 3.7 Chloride Level 107 Carbon Dioxide Level 23 Anion Gap 20 H Blood Urea Nitrogen 11 Creatinine 0.63 Glucose Level 72 Calcium Level 9.6 Medications Medications Current Medications Tamsulosin HCl (Flomax) 0.4 mg HS PO Last administered on 10/26/16 20:22; Admin Dose 0.4 MG; Start 10/24/16 at 21:00 Atorvastatin Calcium 10 mg 10 mg DAILY@21 PO Last administered on 10/26/16 20: 22; Admin Dose 10 MG; Start 10/24/16 at 21:00 Sodium Chloride (NS) 1,000 ml @ 60 mls/hr [id number] IV Last administered on 05:20; Admin Dose 60 MLS/HR; Start 10/24/16 at 15:16 Ondansetron HCl (Zofran Inj) 4 mg Q6H PRN IV NAUSEA AND/OR VOMITING; Start 10/24 at 15:30 Acetaminophen (Tylenol Tab) 650 mg Q6H PRN PO PAIN LEVEL 1-3 OR FEVER; Start at 15:30 Acetaminophen (Tylenol Supp) 650 mg Q6H PRN [place] PAIN LEVEL 1-3 OR FEVER; Start 10/24/16 at 15:30 Acetaminophen/ Hydrocodone Bitart ([place] (5/325)) 1 tab Q6H PRN PO MODERATE PAIN LEVEL 4-6; Start 10/24/16 at 15:30 Acetaminophen/ Hydrocodone Bitart ([place] (5/325)) 2 tab Q6H PRN PO SEVERE PAIN LEVEL 7-10; Start 10/24/16 at 15:30 Docusate Sodium (Colace) 100 mg Q12H PRN PO CONSTIPATION; Start 10/24/16 at 15: 30 Magnesium Hydroxide (Milk Of Mag) 30 ml DAILY PRN PO CONSTIPATION; Start at 15:30 Bisacodyl (Dulcolax Supp) 10 mg DAILY PRN [place] CONSTIPATION; Start 10/24/16 at 15: 30 Pantoprazole (Protonix Iv) 40 mg DAILY@06 IV Last administered on 10/27/16 05: 13; Admin Dose 40 MG; Start 10/25/16 at 06:00 Morphine Sulfate (morphine) 2 mg Q4H PRN IV SEVERE PAIN LEVEL 7-10; Start at 11:00 Methimazole (Tapazole) 20 mg QAM PO Last administered on 10/27/16 08:53; Admin Dose 20 MG; Start 10/26/16 at 09:00 Metoprolol Tartrate (Lopressor) 50 mg Q6 PO Last administered on 10/27/16 11:49 ; Admin Dose 50 MG; Start 10/26/16 at 18:00 ERIC PELAYO NP Oct 27, 2016 19:01
[2016-10-27] MEDS ORDERED: DIPHENHYDRAMINE 25 MG CAP ONE (19:04)
[2016-10-27] MEDS: TAMSULOSIN (SR) 0.4 MG CAP PO SCH (21:00)
[2016-10-27] MEDS: ATORVASTATIN 10 MG TAB PO SCH (21:00)
[2016-10-28] VITALS (11 sets, daily range): BP systolic 116–147; BP diastolic 63–77; PULSE 97–120; RESP 16–20
[2016-10-28] MEDS: METOPROLOL 50 MG TAB PO SCH ×4 (00:27→17:49)
[2016-10-28] MEDS: SOD CHLORIDE 0.9% 1,000 ML IV SCH ×3 (00:27→20:57)
--- NOTE | 2016-10-28 03:53 | GILP ---
DATE OF PROCEDURE: 10/27/2016 PROCEDURE: Colonoscopy to cecum. HISTORY AND INDICATIONS: The patient is being evaluated for significant hematochezia while over anticoagulated. PREMEDICATION: Monitored anesthesia care by anesthesiologist. INSTRUMENT USED: Olympus colonoscope. PREPARATION: Adequate. TECHNIQUE: After informed consent, with the patient/relatives understanding the procedure, its indications potential risks and complications, including but not limited to: allergic reaction, bleeding, perforation, infection, missed lesions and after all pertinent questions were answered to the patient's satisfaction, the patient/relatives signed the witnessed informed consent. Following this, premedication was administered slowly IV push by under careful cardiovascular and respiratory monitoring with pulse oximetry, automatic blood pressure and bus driver/monitor. Once the sedative effect was achieved, the patient was placed in the left lateral decubitus position, digital rectal examination was performed. The colonoscope was then introduced and advanced under visual control throughout all segments of the colon including: the rectum, sigmoid, descending colon, splenic flexure, transverse colon, hepatic flexure, ascending colon and finally reaching the cecum which was clearly identified by transillumination, finger indentation and the ileocecal valve. Careful examination of the mucosa of the lower gastrointestinal tract both on insertion as well as withdrawal of the instrument disclosed the following findings: RECTAL EXAMINATION: Small external hemorrhoids are noted. COLONIC MUCOSA: The colonic mucosa is unremarkable throughout. The ileocecal valve was clearly identified and appears unremarkable. The instrument was withdrawn. On withdrawing of the instrument, no additional abnormalities are noted with the exception of large internal hemorrhoids which very likely represent a source of hematochezia while anticoagulated. The instrument was then withdrawn, the patient tolerated the procedure well and was transferred out of the Endoscopy Suite awake and in good condition to continue recovery under observation. IMPRESSION: RECOMMENDATIONS: Diet will be advanced and anticoagulation should be minimized or avoided all together if clinically acceptable. Dictated By: Chan Dai MD /[email or web address]/shayy /Document#: [id number]
[2016-10-28] MEDS: PANTOPRAZOLE 40 MG INJ IV SCH (05:39)
[2016-10-28] MEDS: METHIMAZOLE 5 MG TAB PO SCH (09:08)
[2016-10-28 12:03] LABS: BASOPHIL # 0.1 10^3/ul (0.0-0.1); BASOPHILS % 0.7 % (0.0-2.0); EOSINOPHILS # 0.3 10^3/ul (0.0-0.5); EOSINOPHILS % 4.5 % (0.0-7.0); HEMATOCRIT 29.7 % (42.0-52.0); HEMOGLOBIN 9.8 g/dl (14.0-18.0); LYMPHOCYTES % 14.7 % (15.0-51.0); MEAN CORPUSCULAR HEMOGLOBIN 30.5 pg (29.0-33.0); MEAN CORPUSCULAR VOLUME 92.5 fl (82.0-101.0); MEAN PLATELET VOLUME 10.1 fl (7.4-10.4); MONOCYTE # 0.6 10^3/ul (0.3-0.9); MONOCYTES % 8.4 % (0.0-11.0); NEUTROPHIL # 4.8 10^3/ul (1.6-7.5); NEUTROPHILS % 71.4 % (39.0-77.0); PLATELET COUNT 155 10^3/UL (140-415); RED BLOOD COUNT 3.21 10^6/ul (4.70-6.10); RED CELL DISTRIBUTION WIDTH 15.1 % (11.5-14.5); WHITE BLOOD COUNT 6.7 10^3/ul (4.8-10.8)
[2016-10-28 12:37] LABS: CHOL/HDL RATIO 2.5 RATIO; MAGNESIUM 1.7 mg/dl (1.7-2.5); PHOSPHORUS 3.2 mg/dl (2.5-4.9)
[2016-10-28 12:38] LABS: CALCIUM 9.2 mg/dl (8.4-10.2); CREATININE 0.67 mg/dl (0.61-1.24)
--- NOTE | 2016-10-28 14:14 | PN ---
Date/Time of Note Date/Time of Note DATE: 10/28/16 TIME: 14:14 Assessment/Plan VTE Prophylaxis VTE Prophylaxis Intervention: contraindicated Lines/Catheters IV [facility] Type (from [facility]): Peripheral IV Urinary Cath still in place: No Assessment/Plan Chief Complaint/Hosp Course 1. Hematochezia. Status post colonoscopy on 10/27/2016 that revealed moderate sized internal hemorrhoids. Continue to replace blood products as indicated. 2. Normocytic, normochromic anemia. Most probably anemia of acute blood loss. Anticoagulation on hold. Transfuse blood products as needed. Continue proton pump inhibitors. 3. Atrial fibrillation with rapid ventricular response. The patient being followed by cardiology. Rate controlled. Anticoagulation on hold because of underlying anemia. 4. Hyperthyroidism. Continue management as per endocrinology. 5. Essential hypertension. Continue antihypertensives. 6. Dyslipidemia. Continue statins. 7. Acute respiratory failure. Hypoxic. Etiology unclear. Will obtain a chest x-ray. Continue supplemental oxygen. Start the patient on inhaled bronchodilators. Will start the patient on Xopenex. 8. Benign prostatic hypertrophy. Continue tamsulosin. 9. Fluids, electrolytes, and nutrition. Controlled diet. 10. Gastrointestinal prophylaxis. Proton pump inhibitors. 11. DVT prophylaxis. Contraindicated because of current GI bleeding 11. Plan. Continue current management. Obtain chest x-ray to evaluate for any underlying infiltrate. Start inhaled bronchodilators. Case discussed with Dr. Branch. Problems: Subjective 24 Hr Interval Summary Free Text/Dictation Complains of dyspnea. Denies any chest pain. Exam/Review of Systems Vital Signs Vitals Vital Signs Date Time Temp Pulse Resp B/P Pulse Ox O2 Delivery O2 Flow Rate FiO2 10/28/16 12:10 114 10/28/16 12:06 2.0 10/28/16 11:52 97.9 20 116/77 100 10/28/16 09:08 Nasal Cannula Intake and Output 10/27/16 10/27/16 10/28/16 15:00 23:00 07:00 Intake Total 780 ml Output Total 500 ml Balance 280 ml Exam General: Adequately build 81 year-old male lying in bed in mild respiratory distress. HEENT: Normocephalic, atraumatic. Eyes: Anicteric sclerae, conjunctivae clear. ENT: Nasal septum midline, oral mucosa moist. Neck supple, no JVD noticed. Respiratory: Bilaterally diminished breath sounds. Use of accessory muscles of respiration. No adventitious breath sounds. Cardiovascular: S1, S2 heard. Irregularly irregular rhythm. Abdomen: Soft, nontender, and nondistended. Bowel sounds positive in all 4 quadrants. Genitourinary: Deferred. Extremities: No cyanosis. Bilateral lower extremity 2+ pitting edema.. Peripheral pulses palpable. Neurologic: Cranial nerves II through XII grossly intact. The patient is awake, alert, and oriented. Skin: Normal skin turgor. No skin rashes. Results Result Diagram: 10/28/16 1130 10/28/16 1130 Results 24 hrs Laboratory Tests Test 10/28/16 11:30 White Blood Count 6.7 Red Blood Count 3.21 L Hemoglobin 9.8 L Hematocrit 29.7 L Mean Corpuscular Volume 92.5 Mean Corpuscular Hemoglobin 30.5 Mean Corpuscular Hemoglobin Concent 33.0 Red Cell Distribution Width 15.1 H Platelet Count 155 Mean Platelet Volume 10.1 Neutrophils % 71.4 Lymphocytes % 14.7 L Monocytes % 8.4 Eosinophils % 4.5 Basophils % 0.7 Nucleated Red Blood Cells % 0.0 Neutrophils # 4.8 Lymphocytes # 1.0 Monocytes # 0.6 Eosinophils # 0.3 Basophils # 0.1 Nucleated Red Blood Cells # 0.0 Sodium Level 144 Potassium Level 4.0 Chloride Level 109 Carbon Dioxide Level 23 Anion Gap 16 Blood Urea Nitrogen 13 Creatinine 0.67 Glucose Level 110 Hemoglobin A1c 5.0 Calcium Level 9.2 Phosphorus Level 3.2 Magnesium Level 1.7 Triglycerides Level 61 Cholesterol Level 84 L LDL Cholesterol, Calculated 39 HDL Cholesterol 33 Cholesterol/HDL Ratio 2.5 Medications Medications Current Medications Tamsulosin HCl (Flomax) 0.4 mg HS PO Last administered on 10/27/16 21:00; Admin Dose 0.4 MG; Start 10/24/16 at 21:00 Atorvastatin Calcium 10 mg 10 mg DAILY@21 PO Last administered on 10/27/16 21: 00; Admin Dose 10 MG; Start 10/24/16 at 21:00 Sodium Chloride (NS) 1,000 ml @ 60 mls/hr [id number] IV Last administered on 12:09; Admin Dose 60 MLS/HR; Start 10/24/16 at 15:16 Ondansetron HCl (Zofran Inj) 4 mg Q6H PRN IV NAUSEA AND/OR VOMITING; Start 10/24 at 15:30 Acetaminophen (Tylenol Tab) 650 mg Q6H PRN PO PAIN LEVEL 1-3 OR FEVER; Start at 15:30 Acetaminophen (Tylenol Supp) [address] PAIN LEVEL 1-3 OR FEVER; Start 10/24/16 at 15:30 Acetaminophen/ Hydrocodone Bitart ([place] (5/325)) 1 tab Q6H PRN PO MODERATE PAIN LEVEL 4-6; Start 10/24/16 at 15:30 Acetaminophen/ Hydrocodone Bitart ([place] (5/325)) 2 tab Q6H PRN PO SEVERE PAIN LEVEL 7-10; Start 10/24/16 at 15:30 Docusate Sodium (Colace) 100 mg Q12H PRN PO CONSTIPATION; Start 10/24/16 at 15: 30 Magnesium Hydroxide (Milk Of Mag) 30 ml DAILY PRN PO CONSTIPATION; Start at 15:30 Bisacodyl (Dulcolax Supp) [address] CONSTIPATION; Start 10/24/16 at 15: 30 Pantoprazole (Protonix Iv) 40 mg DAILY@06 IV Last administered on 10/28/16 05: 39; Admin Dose 40 MG; Start 10/25/16 at 06:00 Morphine Sulfate (morphine) 2 mg Q4H PRN IV SEVERE PAIN LEVEL 7-10; Start at 11:00 Methimazole (Tapazole) 20 mg QAM PO Last administered on 10/28/16 09:08; Admin Dose 20 MG; Start 10/26/16 at 09:00 Metoprolol Tartrate (Lopressor) 50 mg Q6 PO Last administered on 10/28/16 12:09 ; Admin Dose 50 MG; Start 10/26/16 at 18:00 ERIC PELAYO NP Oct 28, 2016 14:14
--- NOTE | 2016-10-28 16:11 | PN ---
Date/Time of Note Date/Time of Note DATE: 10/28/16 TIME: 16:09 Assessment/Plan VTE Prophylaxis VTE Prophylaxis Intervention: contraindicated VTE Contraindication Reason: blood coagulation disorder, bleeding Lines/Catheters IV [facility]ter Type (from [facility]): Peripheral IV Urinary Cath still in place: No Assessment/Plan Chief Complaint/Hosp Course Problems: Assessment/Plan Assessment * Anemia * GI bleeding /Hematochezia * Supra Therapeutic INR/corrected * Atrial fibrillation with RVR * Hypertension Plan * Continue present management * further orders will depend on clinical course * Continue to monitor for evidence of further bleeding Subjective 24 Hr Interval Summary Free Text/Dictation * Course reviewed with RN * Patient seen and examined * No untoward events overnight Exam/Review of Systems Vital Signs Vitals Vital Signs Date Time Temp Pulse Resp B/P Pulse Ox O2 Delivery O2 Flow Rate FiO2 10/28/16 16:01 97.9 83 20 137/77 100 10/28/16 12:06 2.0 10/28/16 09:08 Nasal Cannula Intake and Output 10/27/16 10/27/16 10/28/16 15:00 23:00 07:00 Intake Total 780 ml Output Total 500 ml Balance 280 ml Exam Constitutional: alert, oriented Neck: non-tender, supple Respiratory: clear to auscultation, normal air movement Cardiovascular: irregular rhythm Gastrointestinal: bowel sounds, non-tender, soft, No rebound or guarding Musculoskeletal: nl extremities to inspection, nl gait and stance Extremities: normal pulses Neurological: nl speech, nl strength Skin: nl turgor, No rash or lesions Lymph: nl lymph nodes Results Result Diagram: 10/28/16 1130 10/28/16 1130 Results 24 hrs Laboratory Tests Test 10/28/16 11:30 White Blood Count 6.7 Red Blood Count 3.21 L Hemoglobin 9.8 L Hematocrit 29.7 L Mean Corpuscular Volume 92.5 Mean Corpuscular Hemoglobin 30.5 Mean Corpuscular Hemoglobin Concent 33.0 Red Cell Distribution Width 15.1 H Platelet Count 155 Mean Platelet Volume 10.1 Neutrophils % 71.4 Lymphocytes % 14.7 L Monocytes % 8.4 Eosinophils % 4.5 Basophils % 0.7 Nucleated Red Blood Cells % 0.0 Neutrophils # 4.8 Lymphocytes # 1.0 Monocytes # 0.6 Eosinophils # 0.3 Basophils # 0.1 Nucleated Red Blood Cells # 0.0 Sodium Level 144 Potassium Level 4.0 Chloride Level 109 Carbon Dioxide Level 23 Anion Gap 16 Blood Urea Nitrogen 13 Creatinine 0.67 Glucose Level 110 Hemoglobin A1c 5.0 Calcium Level 9.2 Phosphorus Level 3.2 Magnesium Level 1.7 Triglycerides Level 61 Cholesterol Level 84 L LDL Cholesterol, Calculated 39 HDL Cholesterol 33 Cholesterol/HDL Ratio 2.5 Medications Medications Current Medications Tamsulosin HCl (Flomax) 0.4 mg HS PO Last administered on 10/27/16 21:00; Admin Dose 0.4 MG; Start 10/24/16 at 21:00 Atorvastatin Calcium 10 mg 10 mg DAILY@21 PO Last administered on 10/27/16 21: 00; Admin Dose 10 MG; Start 10/24/16 at 21:00 Sodium Chloride (NS) 1,000 ml @ 60 mls/hr [id number] IV Last administered on 12:09; Admin Dose 60 MLS/HR; Start 10/24/16 at 15:16 Ondansetron HCl (Zofran Inj) 4 mg Q6H PRN IV NAUSEA AND/OR VOMITING; Start 10/24 at 15:30 Acetaminophen (Tylenol Tab) 650 mg Q6H PRN PO PAIN LEVEL 1-3 OR FEVER; Start at 15:30 Acetaminophen (Tylenol Supp) 650 mg Q6H PRN [place] PAIN LEVEL 1-3 OR FEVER; Start 10/24/16 at 15:30 Acetaminophen/ Hydrocodone Bitart ([place] (5/325)) 1 tab Q6H PRN PO MODERATE PAIN LEVEL 4-6; Start 10/24/16 at 15:30 Acetaminophen/ Hydrocodone Bitart ([place] (5/325)) 2 tab Q6H PRN PO SEVERE PAIN LEVEL 7-10; Start 10/24/16 at 15:30 Docusate Sodium (Colace) 100 mg Q12H PRN PO CONSTIPATION; Start 10/24/16 at 15: 30 Magnesium Hydroxide (Milk Of Mag) 30 ml DAILY PRN PO CONSTIPATION; Start at 15:30 Bisacodyl (Dulcolax Supp) 10 mg DAILY PRN [place] CONSTIPATION; Start 10/24/16 at 15: 30 Pantoprazole (Protonix Iv) 40 mg DAILY@06 IV Last administered on 10/28/16 05: 39; Admin Dose 40 MG; Start 10/25/16 at 06:00 Morphine Sulfate (morphine) 2 mg Q4H PRN IV SEVERE PAIN LEVEL 7-10; Start at 11:00 Methimazole (Tapazole) 20 mg QAM PO Last administered on 10/28/16 09:08; Admin Dose 20 MG; Start 10/26/16 at 09:00 Metoprolol Tartrate (Lopressor) 50 mg Q6 PO Last administered on 10/28/16 12:09 ; Admin Dose 50 MG; Start 10/26/16 at 18:00 JOHN CONNELL NP Oct 28, 2016 16:11
--- NOTE | 2016-10-28 17:13 | RADRPT ---
PROCEDURE: Chest radiograph CLINICAL INDICATION: Rule out infiltrates. TECHNIQUE: Single portable frontal view. COMPARISON: None relevant listed. FINDINGS: Alveolar opacities within the medial aspect of right upper lobe, right hilum, and both lower lungs. Small bilateral pleural effusions with adjacent atelectasis. The trachea deviates to the right at the level of the clavicles. The heart is enlarged. No suspicious bone lesion. IMPRESSION: 12 Multi focal alveolar opacities which are incompletely characterized. Chest CT should be consider ed, particularly to evaluate the parenchyma on the mediastinal pleura of the right upper lung, as pn [place] is not the only differential consideration. 2. Small bilateral pleural effusions. RPTAT: PP Physician Archie Date Time Electronically viewed and signed by Jennifer Chopra Physician on 10/28/2016 17:12 LG/
--- NOTE | 2016-10-28 19:01 | CONS ---
Date/Time of Note Date/Time of Note DATE: 10/28/16 TIME: 18:56 Assessment/Plan Assessment/Plan Chief Complaint/Hosp Course Assessment: Atrial fibrillation, likely chronic - rapid ventricular rates in setting of thyrotoxicosis Thyrotoxicosis - status post propylthiouracil, on methimazole per endocrinology Hematochezia and anemia - colonoscopy found large internal hemorrhoids, thought to be likely source of bleed Supratherapeutic INR - >10 on presentation, now normalized Hypertension Dyslipidemia Benign prostate hyperplasia Recommendations: -echocardiogram showed LVEF 55-60%, moderate bi-atrial enlargement -change metoprolol to equivalent 100mg BID dosing -add diltiazem 120mg daily -defer anticoagulation, reassess as outpatient once thyroid controlled -continue statin Problems: Consultation Date/Type/Reason Admit Date/Time Oct 24, 2016 at 12:02 Initial Consult Date 10/25/16 Type of Consultation: Cardiology 24 HR Interval Summary Free Text/Dictation Colonoscopy yesterday found large internal hemorrhoids, thought to be the likely source of hematochezia. Remains in atrial fibrillation with ventricular rates mostly 90s-100s. Detailed Summary Additional Comments 14 point review of systems without changes. Exam/Review of Systems Vital Signs Vitals Vital Signs Date Time Temp Pulse Resp B/P Pulse Ox O2 Delivery O2 Flow Rate FiO2 10/28/16 16:16 97 10/28/16 16:01 97.9 20 137/77 100 10/28/16 12:06 2.0 10/28/16 09:08 Nasal Cannula Intake and Output 10/27/16 10/27/16 10/28/16 15:00 23:00 07:00 Intake Total 780 ml Output Total 500 ml Balance 280 ml Exam Constitutional: alert, well developed Psych: nl mood/affect, no complaints Head: atraumatic, normocephalic Eyes: nl conjunctiva, nl lids ENMT: nl external ears & nose, nl nasal mucosa & septum Neck: non-tender, supple, No jvd Respiratory: clear to auscultation Cardiovascular: irregular rhythm Gastrointestinal: non-tender, soft Musculoskeletal: nl extremities to inspection Extremities: No clubbing, No cyanosis, No edema Neurological: nl mental status, nl speech Skin: nl turgor Results Result Diagram: 10/28/16 1130 10/28/16 1130 Results 24 hrs Laboratory Tests Test 10/28/16 11:30 White Blood Count 6.7 Red Blood Count 3.21 L Hemoglobin 9.8 L Hematocrit 29.7 L Mean Corpuscular Volume 92.5 Mean Corpuscular Hemoglobin 30.5 Mean Corpuscular Hemoglobin Concent 33.0 Red Cell Distribution Width 15.1 H Platelet Count 155 Mean Platelet Volume 10.1 Neutrophils % 71.4 Lymphocytes % 14.7 L Monocytes % 8.4 Eosinophils % 4.5 Basophils % 0.7 Nucleated Red Blood Cells % 0.0 Neutrophils # 4.8 Lymphocytes # 1.0 Monocytes # 0.6 Eosinophils # 0.3 Basophils # 0.1 Nucleated Red Blood Cells # 0.0 Sodium Level 144 Potassium Level 4.0 Chloride Level 109 Carbon Dioxide Level 23 Anion Gap 16 Blood Urea Nitrogen 13 Creatinine 0.67 Glucose Level 110 Hemoglobin A1c 5.0 Calcium Level 9.2 Phosphorus Level 3.2 Magnesium Level 1.7 Triglycerides Level 61 Cholesterol Level 84 L LDL Cholesterol, Calculated 39 HDL Cholesterol 33 Cholesterol/HDL Ratio 2.5 Medications Medications Current Medications Tamsulosin HCl (Flomax) 0.4 mg HS PO Last administered on 10/27/16 21:00; Admin Dose 0.4 MG; Start 10/24/16 at 21:00 Atorvastatin Calcium 10 mg 10 mg DAILY@21 PO Last administered on 10/27/16 21: 00; Admin Dose 10 MG; Start 10/24/16 at 21:00 Sodium Chloride (NS) 1,000 ml @ 60 mls/hr [id number] IV Last administered on 12:09; Admin Dose 60 MLS/HR; Start 10/24/16 at 15:16 Ondansetron HCl (Zofran Inj) 4 mg Q6H PRN IV NAUSEA AND/OR VOMITING; Start 10/24 at 15:30 Acetaminophen (Tylenol Tab) 650 mg Q6H PRN PO PAIN LEVEL 1-3 OR FEVER; Start at 15:30 Acetaminophen (Tylenol Supp) 650 mg Q6H PRN [place] PAIN LEVEL 1-3 OR FEVER; Start 10/24/16 at 15:30 Acetaminophen/ Hydrocodone Bitart ([place] (5/325)) 1 tab Q6H PRN PO MODERATE PAIN LEVEL 4-6; Start 10/24/16 at 15:30 Acetaminophen/ Hydrocodone Bitart ([place] (5/325)) 2 tab Q6H PRN PO SEVERE PAIN LEVEL 7-10; Start 10/24/16 at 15:30 Docusate Sodium (Colace) 100 mg Q12H PRN PO CONSTIPATION; Start 10/24/16 at 15: 30 Magnesium Hydroxide (Milk Of Mag) 30 ml DAILY PRN PO CONSTIPATION; Start at 15:30 Bisacodyl (Dulcolax Supp) 10 mg DAILY PRN [place] CONSTIPATION; Start 10/24/16 at 15: 30 Pantoprazole (Protonix Iv) 40 mg DAILY@06 IV Last administered on 10/28/16 05: 39; Admin Dose 40 MG; Start 10/25/16 at 06:00 Morphine Sulfate (morphine) 2 mg Q4H PRN IV SEVERE PAIN LEVEL 7-10; Start at 11:00 Methimazole (Tapazole) 20 mg QAM PO Last administered on 10/28/16 09:08; Admin Dose 20 MG; Start 10/26/16 at 09:00 Metoprolol Tartrate (Lopressor) 50 mg Q6 PO Last administered on 10/28/16 17:49 ; Admin Dose 50 MG; Start 10/26/16 at 18:00 VINICIO BRAGA MD Oct 28, 2016 19:00
[2016-10-28] MEDS: LEVALBUTEROL (NEB) 0.63 MG/3 ML AMP HHN SCH (19:11)
--- NOTE | 2016-10-28 19:27 | CONS ---
Date/Time of Note Date/Time of Note DATE: 10/28/16 TIME: 19:24 Assessment/Plan Assessment/Plan Chief Complaint/Hosp Course 81-year-old American gentleman who receives his care at [facility]. He reports no prior history of ever having been told of any type of thyroid disorder. He did have some odynophagia in the remote past. He reports in the last 1 month he had been identified as having atrial fibrillation at an urgent care center. He was placed on anticoagulation has now come in with a significant GI bleed. On careful review of systems he has had symptoms of hyperthyroidism for at least 6 months if not much longer Problems: (1) Thyrotoxicosis Status: Chronic Comment: Patient will take approximately 5 weeks to balance into the current dosing on the methimazole. He will probably still be a modestly hyperthyroid patient with this however this is a standard starting dosage. Given that he is showing clinical response from my perspective he can be discharged home on the team feels as other medications and medical issues are balanced. Will need outpatient follow-up specifically in 5 weeks will need CBC CMP and TSH and free T4. At that time his dosages can be adjusted upward or downward. Please note with a multiple thyroid nodules while he would typically biopsy any nodules greater than 10 mm in size that is in patients were not overtly hyperthyroid. Once he is medically stable he will need a nuclear medicine thyroid uptake and scan and then any cold nodules greater than 10 mm should be biopsied. 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 Medical management. 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 Exam/Review of Systems Vital Signs Vitals Vital Signs Date Time Temp Pulse Resp B/P Pulse Ox O2 Delivery O2 Flow Rate FiO2 10/28/16 19:11 102 20 98 Nasal Cannula 3.0 10/28/16 16:01 97.9 137/77 Intake and Output 10/27/16 10/27/16 10/28/16 15:00 23:00 07:00 Intake Total 780 ml Output Total 500 ml Balance 280 ml Exam Constitutional: alert, oriented Neck: non-tender, supple, thyromegaly (Multinodular thyroid gland) Extremities: other (Tremulous) Results Result Diagram: 10/28/16 1130 10/28/16 1130 Results 24 hrs Laboratory Tests Test 10/28/16 11:30 White Blood Count 6.7 Red Blood Count 3.21 L Hemoglobin 9.8 L Hematocrit 29.7 L Mean Corpuscular Volume 92.5 Mean Corpuscular Hemoglobin 30.5 Mean Corpuscular Hemoglobin Concent 33.0 Red Cell Distribution Width 15.1 H Platelet Count 155 Mean Platelet Volume 10.1 Neutrophils % 71.4 Lymphocytes % 14.7 L Monocytes % 8.4 Eosinophils % 4.5 Basophils % 0.7 Nucleated Red Blood Cells % 0.0 Neutrophils # 4.8 Lymphocytes # 1.0 Monocytes # 0.6 Eosinophils # 0.3 Basophils # 0.1 Nucleated Red Blood Cells # 0.0 Sodium Level 144 Potassium Level 4.0 Chloride Level 109 Carbon Dioxide Level 23 Anion Gap 16 Blood Urea Nitrogen 13 Creatinine 0.67 Glucose Level 110 Hemoglobin A1c 5.0 Calcium Level 9.2 Phosphorus Level 3.2 Magnesium Level 1.7 Triglycerides Level 61 Cholesterol Level 84 L LDL Cholesterol, Calculated 39 HDL Cholesterol 33 Cholesterol/HDL Ratio 2.5 Medications Medications Current Medications Tamsulosin HCl (Flomax) 0.4 mg HS PO Last administered on 10/27/16 21:00; Admin Dose 0.4 MG; Start 10/24/16 at 21:00 Atorvastatin Calcium 10 mg 10 mg DAILY@21 PO Last administered on 10/27/16 21: 00; Admin Dose 10 MG; Start 10/24/16 at 21:00 Sodium Chloride (NS) 1,000 ml @ 60 mls/hr [id number] IV Last administered on 12:09; Admin Dose 60 MLS/HR; Start 10/24/16 at 15:16 Ondansetron HCl (Zofran Inj) 4 mg Q6H PRN IV NAUSEA AND/OR VOMITING; Start 10/24 at 15:30 Acetaminophen (Tylenol Tab) 650 mg Q6H PRN PO PAIN LEVEL 1-3 OR FEVER; Start at 15:30 Acetaminophen (Tylenol Supp) 650 mg Q6H PRN [place] PAIN LEVEL 1-3 OR FEVER; Start 10/24/16 at 15:30 Acetaminophen/ Hydrocodone Bitart ([place] (5/325)) 1 tab Q6H PRN PO MODERATE PAIN LEVEL 4-6; Start 10/24/16 at 15:30 Acetaminophen/ Hydrocodone Bitart ([place] (5/325)) 2 tab Q6H PRN PO SEVERE PAIN LEVEL 7-10; Start 10/24/16 at 15:30 Docusate Sodium (Colace) 100 mg Q12H PRN PO CONSTIPATION; Start 10/24/16 at 15: 30 Magnesium Hydroxide (Milk Of Mag) 30 ml DAILY PRN PO CONSTIPATION; Start at 15:30 Bisacodyl (Dulcolax Supp) 10 mg DAILY PRN [place] CONSTIPATION; Start 10/24/16 at 15: 30 Pantoprazole (Protonix Iv) 40 mg DAILY@06 IV Last administered on 10/28/16 05: 39; Admin Dose 40 MG; Start 10/25/16 at 06:00 Morphine Sulfate (morphine) 2 mg Q4H PRN IV SEVERE PAIN LEVEL 7-10; Start at 11:00 Methimazole (Tapazole) 20 mg QAM PO Last administered on 10/28/16 09:08; Admin Dose 20 MG; Start 10/26/16 at 09:00 Metoprolol Tartrate (Lopressor) 100 mg BID PO ; Start 10/28/16 at 21:00; Status UNV Diltiazem HCl (Cardizem Cd) 120 mg DAILY PO ; Start 10/29/16 at 09:00; Status UNV CHRISTIE CLARKE MD Oct 28, 2016 19:27
[2016-10-28] MEDS: ATORVASTATIN 10 MG TAB PO SCH (20:57)
[2016-10-28] MEDS: TAMSULOSIN (SR) 0.4 MG CAP PO SCH (20:57)
[2016-10-28] MEDS: METOPROLOL 100 MG TAB PO SCH (20:58)
[2016-10-29] VITALS (10 sets, daily range): BP systolic 109–153; BP diastolic 65–87; PULSE 60–90; RESP 18–20
[2016-10-29] MEDS: LEVALBUTEROL (NEB) 0.63 MG/3 ML AMP HHN SCH ×5 (01:40→20:02)
[2016-10-29] MEDS: PANTOPRAZOLE 40 MG INJ IV SCH (06:14)
[2016-10-29] MEDS ORDERED: DILTIAZEM (CD) 120 MG CAP PO SCH (09:00)
[2016-10-29] MEDS: METOPROLOL 100 MG TAB PO SCH ×2 (09:45→21:02)
[2016-10-29] MEDS: METHIMAZOLE 5 MG TAB PO SCH (09:45)
[2016-10-29] MEDS: SOD CHLORIDE 0.9% 1,000 ML IV SCH (12:13)
--- NOTE | 2016-10-29 13:30 | PN ---
Date/Time of Note Date/Time of Note DATE: 10/29/16 TIME: 13:27 Assessment/Plan VTE Prophylaxis VTE Prophylaxis Intervention: contraindicated VTE Contraindication Reason: bleeding Lines/Catheters IV [facility]ter Type (from [facility]): Peripheral IV Urinary Cath still in place: No Assessment/Plan Chief Complaint/Hosp Course Problems: Assessment/Plan Assessment * Anemia Controlled * GI bleeding /Hematochezia * Supra Therapeutic INR/corrected * Atrial fibrillation with RVR * Hypertension Plan * Continue present management * will signed out for now but will follow up as needed * further orders will depend on clinical course * Continue to monitor for evidence of further bleeding Subjective 24 Hr Interval Summary Free Text/Dictation * Course reviewed * Patient seen and examined * No evidenced of bleeding * Still with on and off shortness of breath Exam/Review of Systems Vital Signs Vitals Vital Signs Date Time Temp Pulse Resp B/P Pulse Ox O2 Delivery O2 Flow Rate FiO2 10/29/16 12:13 97.7 89 20 152/84 98 10/29/16 08:45 Nasal Cannula 2.0 Intake and Output 10/28/16 10/28/16 10/29/16 14:59 22:59 06:59 Intake Total 1000 ml Output Total 600 ml Balance 400 ml Exam Constitutional: alert, frail Head: normocephalic Neck: jvd, supple Respiratory: crackles/rales, diminished breath sounds, labored breathing Cardiovascular: irregular rhythm Gastrointestinal: non-tender, soft Musculoskeletal: nl extremities to inspection, nl gait and stance Extremities: normal pulses Neurological: nl speech, nl strength Skin: nl turgor, No rash or lesions Results Result Diagram: 10/28/16 1130 10/28/16 1130 Medications Medications Current Medications Tamsulosin HCl (Flomax) 0.4 mg HS PO Last administered on 10/28/16 20:57; Admin Dose 0.4 MG; Start 10/24/16 at 21:00 Atorvastatin Calcium 10 mg 10 mg DAILY@21 PO Last administered on 10/28/16 20: 57; Admin Dose 10 MG; Start 10/24/16 at 21:00 Sodium Chloride (NS) 1,000 ml @ 60 mls/hr [id number] IV Last administered on 12:13; Admin Dose 60 MLS/HR; Start 10/24/16 at 15:16 Ondansetron HCl (Zofran Inj) 4 mg Q6H PRN IV NAUSEA AND/OR VOMITING; Start 10/24 at 15:30 Acetaminophen (Tylenol Tab) 650 mg Q6H PRN PO PAIN LEVEL 1-3 OR FEVER; Start at 15:30 Acetaminophen (Tylenol Supp) 650 mg Q6H PRN [place] PAIN LEVEL 1-3 OR FEVER; Start 10/24/16 at 15:30 Acetaminophen/ Hydrocodone Bitart ([place] (5/325)) 1 tab Q6H PRN PO MODERATE PAIN LEVEL 4-6; Start 10/24/16 at 15:30 Acetaminophen/ Hydrocodone Bitart ([place] (5/325)) 2 tab Q6H PRN PO SEVERE PAIN LEVEL 7-10; Start 10/24/16 at 15:30 Docusate Sodium (Colace) 100 mg Q12H PRN PO CONSTIPATION; Start 10/24/16 at 15: 30 Magnesium Hydroxide (Milk Of Mag) 30 ml DAILY PRN PO CONSTIPATION; Start at 15:30 Bisacodyl (Dulcolax Supp) 10 mg DAILY PRN [place] CONSTIPATION; Start 10/24/16 at 15: 30 Pantoprazole (Protonix Iv) 40 mg DAILY@06 IV Last administered on 10/29/16 06: 14; Admin Dose 40 MG; Start 10/25/16 at 06:00 Morphine Sulfate (morphine) 2 mg Q4H PRN IV SEVERE PAIN LEVEL 7-10; Start at 11:00 Methimazole (Tapazole) 20 mg QAM PO Last administered on 10/29/16 09:45; Admin Dose 20 MG; Start 10/26/16 at 09:00 Metoprolol Tartrate (Lopressor) 100 mg BID PO Last administered on 10/29/16 09: 45; Admin Dose 100 MG; Start 10/28/16 at 21:00 Diltiazem HCl (Cardizem Cd) 120 mg DAILY PO Last administered on 10/29/16 09:45 ; Admin Dose 120 MG; Start 10/29/16 at 09:00 JOHN CONNELL NP Oct 29, 2016 13:30
[2016-10-29 14:19] LABS: BASOPHILS % 0.4 % (0.0-2.0); EOSINOPHILS # 0.4 10^3/ul (0.0-0.5); EOSINOPHILS % 5.6 % (0.0-7.0); HEMATOCRIT 30.4 % (42.0-52.0); HEMOGLOBIN 10.1 g/dl (14.0-18.0); LYMPHOCYTES # 0.9 10^3/ul (0.8-2.9); LYMPHOCYTES % 12.1 % (15.0-51.0); MEAN CORPUSCULAR HEMOGLOBIN 30.9 pg (29.0-33.0); MEAN CORPUSCULAR HGB CONC 33.2 g/dl (32.0-37.0); MEAN PLATELET VOLUME 10.2 fl (7.4-10.4); MONOCYTE # 0.7 10^3/ul (0.3-0.9); MONOCYTES % 8.8 % (0.0-11.0); NEUTROPHIL # 5.6 10^3/ul (1.6-7.5); NEUTROPHILS % 72.7 % (39.0-77.0); PLATELET COUNT 159 10^3/UL (140-415); RED BLOOD COUNT 3.27 10^6/ul (4.70-6.10); RED CELL DISTRIBUTION WIDTH 15.1 % (11.5-14.5); WHITE BLOOD COUNT 7.6 10^3/ul (4.8-10.8)
[2016-10-29 14:39] LABS: CALCIUM 9.1 mg/dl (8.4-10.2); CREATININE 0.72 mg/dl (0.61-1.24)
[2016-10-29 14:40] LABS: MAGNESIUM 1.7 mg/dl (1.7-2.5); PHOSPHORUS 2.8 mg/dl (2.5-4.9)
--- NOTE | 2016-10-29 15:12 | PN ---
Date/Time of Note Date/Time of Note DATE: 10/29/16 TIME: 15:09 Assessment/Plan VTE Prophylaxis VTE Prophylaxis Intervention: contraindicated Lines/Catheters [facility] Peripheral IV Urinary Cath still in place: No Assessment/Plan Chief Complaint/Hosp Course 1. Hematochezia. Status post colonoscopy on 10/27/2016 that revealed moderate sized internal hemorrhoids. Continue to replace blood products as indicated. 2. Normocytic, normochromic anemia. Most probably anemia of acute blood loss. Anticoagulation on hold. Transfuse blood products as needed. Continue proton pump inhibitors. 3. Atrial fibrillation with rapid ventricular response. The patient being followed by cardiology. Rate controlled. Anticoagulation on hold because of underlying anemia. 4. Hyperthyroidism. Continue management as per endocrinology. 5. Essential hypertension. Continue antihypertensives. 6. Dyslipidemia. Continue statins. 7. Acute respiratory failure. Hypoxic. Etiology unclear. Continue supplemental oxygen. Continue inhaled bronchodilators. Chest x-ray showing multifocal alveolar opacities which are incompletely characterized with small bilateral pleural effusions.. Will obtain a chest CT scan to further evaluate this. 8. Benign prostatic hypertrophy. Continue tamsulosin. 9. Fluids, electrolytes, and nutrition. Controlled diet. 10. Gastrointestinal prophylaxis. Proton pump inhibitors. 11. DVT prophylaxis. Contraindicated because of current GI bleeding 11. Plan. Continue current management. Obtain chest CT scan. Case discussed with Dr. Branch. Problems: Subjective 24 Hr Interval Summary Free Text/Dictation Denies any hematochezia. Exam/Review of Systems Vital Signs Vitals Vital Signs Date Time Temp Pulse Resp B/P Pulse Ox O2 Delivery O2 Flow Rate FiO2 10/29/16 12:13 97.7 89 20 152/84 98 10/29/16 08:45 Nasal Cannula 2.0 Intake and Output 10/28/16 10/28/16 10/29/16 14:59 22:59 06:59 Intake Total 1000 ml Output Total 600 ml Balance 400 ml Exam General: Adequately build 81 year-old male lying in bed in mild respiratory distress. HEENT: Normocephalic, atraumatic. Eyes: Anicteric sclerae, conjunctivae clear. ENT: Nasal septum midline, oral mucosa moist. Neck supple, no JVD noticed. Respiratory: Bilaterally diminished breath sounds. Use of accessory muscles of respiration. No adventitious breath sounds. Cardiovascular: S1, S2 heard. Irregularly irregular rhythm. Abdomen: Soft, nontender, and nondistended. Bowel sounds positive in all 4 quadrants. Genitourinary: Deferred. Extremities: No cyanosis. Bilateral lower extremity 2+ pitting edema.. Peripheral pulses palpable. Neurologic: Cranial nerves II through XII grossly intact. The patient is awake, alert, and oriented. Skin: Normal skin turgor. No skin rashes. Results Result Diagram: 10/29/16 1343 10/29/16 1344 Results 24 hrs Laboratory Tests Test 10/29/16 13:43 10/29/16 13:44 White Blood Count 7.6 Red Blood Count 3.27 L Hemoglobin 10.1 L Hematocrit 30.4 L Mean Corpuscular Volume 93.0 Mean Corpuscular Hemoglobin 30.9 Mean Corpuscular Hemoglobin Concent 33.2 Red Cell Distribution Width 15.1 H Platelet Count 159 Mean Platelet Volume 10.2 Neutrophils % 72.7 Lymphocytes % 12.1 L Monocytes % 8.8 Eosinophils % 5.6 Basophils % 0.4 Nucleated Red Blood Cells % 0.0 Neutrophils # 5.6 Lymphocytes # 0.9 Monocytes # 0.7 Eosinophils # 0.4 Basophils # 0.0 Nucleated Red Blood Cells # 0.0 Sodium Level 143 Potassium Level 4.0 Chloride Level 108 Carbon Dioxide Level 21 Anion Gap 18 H Blood Urea Nitrogen 15 Creatinine 0.72 Glucose Level 152 Calcium Level 9.1 Phosphorus Level 2.8 Magnesium Level 1.7 B-Type Natriuretic Peptide 4180 H Medications Medications Current Medications Tamsulosin HCl (Flomax) 0.4 mg HS PO Last administered on 10/28/16 20:57; Admin Dose 0.4 MG; Start 10/24/16 at 21:00 Atorvastatin Calcium 10 mg 10 mg DAILY@21 PO Last administered on 10/28/16 20: 57; Admin Dose 10 MG; Start 10/24/16 at 21:00 Sodium Chloride (NS) 1,000 ml @ 60 mls/hr [id number] IV Last administered on 12:13; Admin Dose 60 MLS/HR; Start 10/24/16 at 15:16 Ondansetron HCl (Zofran Inj) 4 mg Q6H PRN IV NAUSEA AND/OR VOMITING; Start 10/24 at 15:30 Acetaminophen (Tylenol Tab) 650 mg Q6H PRN PO PAIN LEVEL 1-3 OR FEVER; Start at 15:30 Acetaminophen (Tylenol Supp) 650 mg Q6H PRN [place] PAIN LEVEL 1-3 OR FEVER; Start 10/24/16 at 15:30 Acetaminophen/ Hydrocodone Bitart ([place] (5/325)) 1 tab Q6H PRN PO MODERATE PAIN LEVEL 4-6; Start 10/24/16 at 15:30 Acetaminophen/ Hydrocodone Bitart ([place] (5/325)) 2 tab Q6H PRN PO SEVERE PAIN LEVEL 7-10; Start 10/24/16 at 15:30 Docusate Sodium (Colace) 100 mg Q12H PRN PO CONSTIPATION; Start 10/24/16 at 15: 30 Magnesium Hydroxide (Milk Of Mag) 30 ml DAILY PRN PO CONSTIPATION; Start at 15:30 Bisacodyl (Dulcolax Supp) 10 mg DAILY PRN [place] CONSTIPATION; Start 10/24/16 at 15: 30 Pantoprazole (Protonix Iv) 40 mg DAILY@06 IV Last administered on 10/29/16 06: 14; Admin Dose 40 MG; Start 10/25/16 at 06:00 Morphine Sulfate (morphine) 2 mg Q4H PRN IV SEVERE PAIN LEVEL 7-10; Start at 11:00 Methimazole (Tapazole) 20 mg QAM PO Last administered on 10/29/16 09:45; Admin Dose 20 MG; Start 10/26/16 at 09:00 Metoprolol Tartrate (Lopressor) 100 mg BID PO Last administered on 10/29/16 09: 45; Admin Dose 100 MG; Start 10/28/16 at 21:00 Diltiazem HCl (Cardizem Cd) 120 mg DAILY PO Last administered on 10/29/16 09:45 ; Admin Dose 120 MG; Start 10/29/16 at 09:00 ERIC PELAYO NP Oct 29, 2016 15:11
--- NOTE | 2016-10-29 16:26 | CONS ---
Date/Time of Note Date/Time of Note DATE: 10/29/16 TIME: 16:24 Assessment/Plan Assessment/Plan Chief Complaint/Hosp Course Assessment: Atrial fibrillation, likely chronic - rapid ventricular rates in setting of thyrotoxicosis, rates now controlled Thyrotoxicosis - status post propylthiouracil, on methimazole per endocrinology Hematochezia and anemia - colonoscopy found large internal hemorrhoids, thought to be likely source of bleed Supratherapeutic INR - >10 on presentation, now normalized Hypertension Dyslipidemia Benign prostate hyperplasia Recommendations: -echocardiogram showed LVEF 55-60%, moderate bi-atrial enlargement -discontinue diltiazem -decrease metoprolol to 50mg BID -defer anticoagulation, reassess as outpatient -continue statin Problems: Consultation Date/Type/Reason Admit Date/Time Oct 24, 2016 at 12:02 Initial Consult Date 10/25/16 Type of Consultation: Cardiology 24 HR Interval Summary Free Text/Dictation In atrial fibrillation, now rate controlled with 2-3 second pauses. Detailed Summary Additional Comments 14 point review of systems without changes. Exam/Review of Systems Vital Signs Vitals Vital Signs Date Time Temp Pulse Resp B/P Pulse Ox O2 Delivery O2 Flow Rate FiO2 10/29/16 16:14 98.0 59 20 131/65 100 10/29/16 08:45 Nasal Cannula 2.0 Intake and Output 10/28/16 10/28/16 10/29/16 15:00 23:00 07:00 Intake Total 1000 ml Output Total 600 ml Balance 400 ml Exam Constitutional: alert, well developed Psych: nl mood/affect, no complaints Head: atraumatic, normocephalic Eyes: nl conjunctiva, nl lids ENMT: nl external ears & nose, nl nasal mucosa & septum Neck: non-tender, supple, No jvd Respiratory: clear to auscultation Cardiovascular: irregular rhythm Gastrointestinal: non-tender, soft Musculoskeletal: nl extremities to inspection Extremities: No clubbing, No cyanosis, No edema Neurological: nl mental status, nl speech Skin: nl turgor Results Result Diagram: 10/29/16 1343 10/29/16 1344 Results 24 hrs Laboratory Tests Test 10/29/16 13:43 10/29/16 13:44 White Blood Count 7.6 Red Blood Count 3.27 L Hemoglobin 10.1 L Hematocrit 30.4 L Mean Corpuscular Volume 93.0 Mean Corpuscular Hemoglobin 30.9 Mean Corpuscular Hemoglobin Concent 33.2 Red Cell Distribution Width 15.1 H Platelet Count 159 Mean Platelet Volume 10.2 Neutrophils % 72.7 Lymphocytes % 12.1 L Monocytes % 8.8 Eosinophils % 5.6 Basophils % 0.4 Nucleated Red Blood Cells % 0.0 Neutrophils # 5.6 Lymphocytes # 0.9 Monocytes # 0.7 Eosinophils # 0.4 Basophils # 0.0 Nucleated Red Blood Cells # 0.0 Sodium Level 143 Potassium Level 4.0 Chloride Level 108 Carbon Dioxide Level 21 Anion Gap 18 H Blood Urea Nitrogen 15 Creatinine 0.72 Glucose Level 152 Calcium Level 9.1 Phosphorus Level 2.8 Magnesium Level 1.7 B-Type Natriuretic Peptide 4180 H Medications Medications Current Medications Tamsulosin HCl (Flomax) 0.4 mg HS PO Last administered on 10/28/16 20:57; Admin Dose 0.4 MG; Start 10/24/16 at 21:00 Atorvastatin Calcium 10 mg 10 mg DAILY@21 PO Last administered on 10/28/16 20: 57; Admin Dose 10 MG; Start 10/24/16 at 21:00 Sodium Chloride (NS) 1,000 ml @ 60 mls/hr [id number] IV Last administered on 12:13; Admin Dose 60 MLS/HR; Start 10/24/16 at 15:16 Ondansetron HCl (Zofran Inj) 4 mg Q6H PRN IV NAUSEA AND/OR VOMITING; Start 10/24 at 15:30 Acetaminophen (Tylenol Tab) 650 mg Q6H PRN PO PAIN LEVEL 1-3 OR FEVER; Start at 15:30 Acetaminophen (Tylenol Supp) 650 mg Q6H PRN [place] PAIN LEVEL 1-3 OR FEVER; Start 10/24/16 at 15:30 Acetaminophen/ Hydrocodone Bitart ([place] (5/325)) 1 tab Q6H PRN PO MODERATE PAIN LEVEL 4-6; Start 10/24/16 at 15:30 Acetaminophen/ Hydrocodone Bitart ([place] (5/325)) 2 tab Q6H PRN PO SEVERE PAIN LEVEL 7-10; Start 10/24/16 at 15:30 Docusate Sodium (Colace) 100 mg Q12H PRN PO CONSTIPATION; Start 10/24/16 at 15: 30 Magnesium Hydroxide (Milk Of Mag) 30 ml DAILY PRN PO CONSTIPATION; Start at 15:30 Bisacodyl (Dulcolax Supp) 10 mg DAILY PRN [place] CONSTIPATION; Start 10/24/16 at 15: 30 Pantoprazole (Protonix Iv) 40 mg DAILY@06 IV Last administered on 10/29/16 06: 14; Admin Dose 40 MG; Start 10/25/16 at 06:00 Morphine Sulfate (morphine) 2 mg Q4H PRN IV SEVERE PAIN LEVEL 7-10; Start at 11:00 Methimazole (Tapazole) 20 mg QAM PO Last administered on 10/29/16 09:45; Admin Dose 20 MG; Start 10/26/16 at 09:00 Metoprolol Tartrate (Lopressor) 100 mg BID PO Last administered on 10/29/16 09: 45; Admin Dose 100 MG; Start 10/28/16 at 21:00 Diltiazem HCl (Cardizem Cd) 120 mg DAILY PO Last administered on 10/29/16 09:45 ; Admin Dose 120 MG; Start 10/29/16 at 09:00 VINICIO BRAGA MD Oct 29, 2016 16:26
--- NOTE | 2016-10-29 18:49 | CONS ---
Date/Time of Note Date/Time of Note DATE: 10/29/16 TIME: 18:46 Assessment/Plan Assessment/Plan Chief Complaint/Hosp Course 81-year-old [place] gentleman who receives [facility] care at [facility]. He reports no prior history of ever having been told of any type of thyroid disorder. He did have some odynophagia in the remote past. He reports in the last 1 month he had been identified as having atrial fibrillation at an urgent care center. He was placed on anticoagulation has now come in with a significant GI bleed. 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 Plan is to continue and balance in euthyroid range. At that time thyoid scan and uptake with plan for I131 ablation (2) Atrial fibrillation with rapid ventricular response Status: Chronic Consultation Date/Type/Reason Admit Date/Time Oct 24, 2016 at 12:02 Initial Consult Date 10/25/16 Type of Consultation: Endocrinology Reason for Consultation Hyperthyroid Multinodular goiter 24 HR Interval Summary Constitutional: improved Exam/Review of Systems Vital Signs Vitals Vital Signs Date Time Temp Pulse Resp B/P Pulse Ox O2 Delivery O2 Flow Rate FiO2 10/29/16 16:24 89 16 96 Nasal Cannula 2.0 10/29/16 16:14 98.0 131/65 Intake and Output 10/28/16 10/28/16 10/29/16 15:00 23:00 07:00 Intake Total 1000 ml Output Total 600 ml Balance 400 ml Exam Constitutional: alert, oriented Respiratory: clear to auscultation, normal air movement Neurological: other (tremor is less) Results Result Diagram: 10/29/16 1343 10/29/16 1344 Results 24 hrs Laboratory Tests Test 10/29/16 13:43 10/29/16 13:44 White Blood Count 7.6 Red Blood Count 3.27 L Hemoglobin 10.1 L Hematocrit 30.4 L Mean Corpuscular Volume 93.0 Mean Corpuscular Hemoglobin 30.9 Mean Corpuscular Hemoglobin Concent 33.2 Red Cell Distribution Width 15.1 H Platelet Count 159 Mean Platelet Volume 10.2 Neutrophils % 72.7 Lymphocytes % 12.1 L Monocytes % 8.8 Eosinophils % 5.6 Basophils % 0.4 Nucleated Red Blood Cells % 0.0 Neutrophils # 5.6 Lymphocytes # 0.9 Monocytes # 0.7 Eosinophils # 0.4 Basophils # 0.0 Nucleated Red Blood Cells # 0.0 Sodium Level 143 Potassium Level 4.0 Chloride Level 108 Carbon Dioxide Level 21 Anion Gap 18 H Blood Urea Nitrogen 15 Creatinine 0.72 Glucose Level 152 Calcium Level 9.1 Phosphorus Level 2.8 Magnesium Level 1.7 B-Type Natriuretic Peptide 4180 H Medications Medications Current Medications Tamsulosin HCl (Flomax) 0.4 mg HS PO Last administered on 10/28/16 20:57; Admin Dose 0.4 MG; Start 10/24/16 at 21:00 Atorvastatin Calcium 10 mg 10 mg DAILY@21 PO Last administered on 10/28/16 20: 57; Admin Dose 10 MG; Start 10/24/16 at 21:00 Sodium Chloride (NS) 1,000 ml @ 60 mls/hr [id number] IV Last administered on 12:13; Admin Dose 60 MLS/HR; Start 10/24/16 at 15:16 Ondansetron HCl (Zofran Inj) 4 mg Q6H PRN IV NAUSEA AND/OR VOMITING; Start 10/24 at 15:30 Acetaminophen (Tylenol Tab) 650 mg Q6H PRN PO PAIN LEVEL 1-3 OR FEVER; Start at 15:30 Acetaminophen (Tylenol Supp) [address] PAIN LEVEL 1-3 OR FEVER; Start 10/24/16 at 15:30 Acetaminophen/ Hydrocodone Bitart ([place] (5/325)) 1 tab Q6H PRN PO MODERATE PAIN LEVEL 4-6; Start 10/24/16 at 15:30 Acetaminophen/ Hydrocodone Bitart ([place] (5/325)) 2 tab Q6H PRN PO SEVERE PAIN LEVEL 7-10; Start 10/24/16 at 15:30 Docusate Sodium (Colace) 100 mg Q12H PRN PO CONSTIPATION; Start 10/24/16 at 15: 30 Magnesium Hydroxide (Milk Of Mag) 30 ml DAILY PRN PO CONSTIPATION; Start at 15:30 Bisacodyl (Dulcolax Supp) [address] CONSTIPATION; Start 10/24/16 at 15: 30 Pantoprazole (Protonix Iv) 40 mg DAILY@06 IV Last administered on 10/29/16 06: 14; Admin Dose 40 MG; Start 10/25/16 at 06:00 Morphine Sulfate (morphine) 2 mg Q4H PRN IV SEVERE PAIN LEVEL 7-10; Start at 11:00 Methimazole (Tapazole) 20 mg QAM PO Last administered on 10/29/16 09:45; Admin Dose 20 MG; Start 10/26/16 at 09:00 Metoprolol Tartrate (Lopressor) 50 mg BID PO ; Start 10/29/16 at 21:00 CHRISTIE CLARKE MD Oct 29, 2016 18:49
[2016-10-29] MEDS: ATORVASTATIN 10 MG TAB PO SCH (21:00)
[2016-10-29] MEDS: TAMSULOSIN (SR) 0.4 MG CAP PO SCH (21:00)
[2016-10-30] VITALS (14 sets, daily range): BP systolic 127–145; BP diastolic 63–96; PULSE 74–177; RESP 18–20
[2016-10-30] MEDS: LEVALBUTEROL (NEB) 0.63 MG/3 ML AMP HHN SCH ×4 (01:13→19:25)
[2016-10-30] MEDS: SOD CHLORIDE 0.9% 1,000 ML IV SCH (04:36)
[2016-10-30] MEDS ORDERED: FUROSEMIDE 40 MG INJ IV ONE (05:30)
[2016-10-30] MEDS: PANTOPRAZOLE 40 MG INJ IV SCH (05:40)
[2016-10-30 07:35] LABS: BASOPHIL # 0.1 10^3/ul (0.0-0.1); BASOPHILS % 0.6 % (0.0-2.0); EOSINOPHILS # 0.6 10^3/ul (0.0-0.5); HEMATOCRIT 32.8 % (42.0-52.0); HEMOGLOBIN 10.7 g/dl (14.0-18.0); LYMPHOCYTES # 1.4 10^3/ul (0.8-2.9); LYMPHOCYTES % 18.2 % (15.0-51.0); MEAN CORPUSCULAR HEMOGLOBIN 30.1 pg (29.0-33.0); MEAN CORPUSCULAR HGB CONC 32.6 g/dl (32.0-37.0); MEAN CORPUSCULAR VOLUME 92.4 fl (82.0-101.0); MEAN PLATELET VOLUME 10.3 fl (7.4-10.4); MONOCYTE # 0.8 10^3/ul (0.3-0.9); MONOCYTES % 10.7 % (0.0-11.0); NEUTROPHIL # 4.9 10^3/ul (1.6-7.5); NEUTROPHILS % 63.1 % (39.0-77.0); PLATELET COUNT 168 10^3/UL (140-415); RED BLOOD COUNT 3.55 10^6/ul (4.70-6.10); RED CELL DISTRIBUTION WIDTH 14.9 % (11.5-14.5); WHITE BLOOD COUNT 7.8 10^3/ul (4.8-10.8)
[2016-10-30 07:50] LABS: CREATININE 0.68 mg/dl (0.61-1.24); MAGNESIUM 1.8 mg/dl (1.7-2.5); PHOSPHORUS 2.5 mg/dl (2.5-4.9); POTASSIUM 3.7 mmol/L (3.5-5.1)
--- NOTE | 2016-10-30 08:47 | RADRPT ---
PROCEDURE: CT Chest without IV contrast. CLINICAL INDICATION: Shortness of breath TECHNIQUE: The study was performed utilizing a multidetector CT scanner. Direct axial sections wer e obtained from the thoracic inlet through the upper abdomen without intravenous contrast material a nd reformatted at 2.5 mm. Lung window reformats were created. Coronal and sagittal reformations wer e obtained. The images were reviewed on a PACS workstation. DLP = 375.9 mGy-cm.CTDiVol = 10.2 mGy. COMPARISON: Chest x-ray October 29, 2016 FINDINGS: Heart is large. Minimal coronary artery calcifications are observed. A few prominent, but not enla rged by size criteria lymph nodes are identified in the paratracheal regions. The largest distinct lymph node measures 1.3 x 0.7 cm. No lymphadenopathy by size criteria is seen. The left thyroid appears slightly prominent and appears to extend substernally. A 3.0 cm ovoid nodu le containing a few scattered calcifications is seen in the left paratracheal region, adjacent to th e inferior left thyroid. This nodule has an appearance similar to thyroid and may reflect a thyroid nodule or lobulated portion of the inferior left thyroid. This nodule causes mild tracheal deviatio n to the right. A few scattered calcifications are seen in the visualized inferior right thyroid. Mild scattered calcified atherosclerosis is identified in the thoracic aorta. The thoracic esophagus appears normal. Small bilateral pleural effusions are identified, right greater than left. Overlying posterior atel ectasis is seen in the right upper and lower lobes and in the left lower lobe. Scarring and few bleb s are identified at the right apex. Mild scarring is seen at the left apex. A 3 mm nodule is seen in the medial right middle lobe (series 4, image 45). An additional 9 mm nodu le is seen in the medial right middle lobe (series 4, image 60). An additional 8 mm nodule is seen i n the medial right middle lobe (series 4, image 66). A 4 mm nodule is seen in the lateral right midd le lobe (series 4, image 64). A 7 mm nodule is seen in the anterior right lower lobe (series 4, danay ge 58). A 3 mm nodule is seen in the anterior right lower lobe series 4, image 75). An 8 mm nodule is seen in the posterior right lower lobe (series 4, image 77). A 7 mm nodule is seen in the gas main fitter helper ior right lower lobe (series 4, image 79). Multiple nodules are identified in the anterior left upper lobe and in the lingula. The largest dis tinct nodule in these regions measures up to 6 mm (series 4, images 34, 45, 46, 47, 53, 56, 61, 65, 72). Multiple nodules are noted in the posterior left lower lobe, measuring up to approximately 9 m m (series 4, images 69, 83, 87, 90). Few small, round, cystic attenuation lesions are identified in the right liver, measuring up to 12 m m. Small to moderate amount of ascites is noted in the visualized upper abdomen. The remainder of the organs of the visualized abdomen are unremarkable. Moderate degenerative changes are identified in the spine. Focal likely bone island is identified i n the anterior right sixth rib. The subcutaneous and muscular soft tissues surrounding the chest ar e unremarkable. IMPRESSION: Small bilateral pleural effusions, right greater than left, with overlying posterior atelectasis. Multiple bilateral lung nodules. The largest nodules measure up to approximately 9 mm. Etiology of these nodules is uncertain. Metastatic disease is not excluded. Enlarged left thyroid with mild substernal extension. A 3.0 cm nodule with few internal calcificati ons is seen adjacent to the inferior aspect of the left thyroid and may reflect a lobulated substern al portion of the left thyroid. This nodule causes mild tracheal deviation to the left. Few small round, cystic attenuation lesions in the right liver, measuring up to 12 mm. These likely reflect small liver cysts. However, given the findings of multiple nodules in the chest, true soft tissue lesions or metastatic disease cannot be excluded. Further characterization with triple phas e liver protocol CT or MRI could be helpful. Small to moderate amount of ascites in the visualized upper abdomen. Etiology is uncertain. Degenerative changes in the spine and calcified atherosclerosis in the arterial vasculature. RPTAT: AA .Selvin Pelletier MD, Date Time Electronically viewed and signed by .Selvin Pelletier MD, MD on 10/30/2016 08:46 .P/
[2016-10-30] MEDS: METHIMAZOLE 5 MG TAB PO SCH (09:34)
[2016-10-30] MEDS: METOPROLOL 100 MG TAB PO SCH ×2 (09:34→21:52)
--- NOTE | 2016-10-30 09:53 | CONS ---
Date/Time of Note Date/Time of Note DATE: 10/30/16 TIME: 09:51 Assessment/Plan Assessment/Plan Chief Complaint/Hosp Course 81-year-old [place] gentleman who receives his care at [facility]. He reports no prior history of ever having been told of any type of thyroid disorder. He did have some odynophagia in the remote past. He reports in the last 1 month he had been identified as having atrial fibrillation at an urgent care center. He was placed on anticoagulation has now come in with a significant GI bleed. On careful review of systems he has had symptoms of hyperthyroidism for at least 6 months if not much longer Problems: (1) Multiple lung nodules on CT Status: Acute Comment: Workup will be as per the primary care team. 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 I will go ahead and order a free T4 to see if that has changed significantly as that would be able to spot the response to medications at this very early date (3) BPH (benign prostatic hyperplasia) Status: Chronic Comment: Noted. He is on medication treatment Qualifiers: Prostatic enlargement morphology: unspecified morphology Lower urinary tract symptom presence: symptoms present Qualified Code: N40.1 - Benign prostatic hyperplasia with lower urinary tract symptoms, unspecified morphology (4) Atrial fibrillation with rapid ventricular response Status: Chronic Comment: As per cardiology. Consultation Date/Type/Reason Admit Date/Time Oct 24, 2016 at 12:02 Initial Consult Date 10/25/16 Type of Consultation: Endocrinology Reason for Consultation Severe thyrotoxicosis due to multinodular goiter with complications 24 HR Interval Summary Free Text/Dictation Patient is feeling somewhat better. Had CT scan yesterday. Dyspnea with exertion Exam/Review of Systems Vital Signs Vitals Vital Signs Date Time Temp Pulse Resp B/P Pulse Ox O2 Delivery O2 Flow Rate FiO2 10/30/16 08:27 74 22 97 Nasal Cannula 2.0 10/30/16 07:45 97.5 139/69 Intake and Output 10/29/16 10/29/16 10/30/16 15:00 23:00 07:00 Intake Total 1000 ml 800 ml Output Total 1000 ml 800 ml Balance 0 ml 0 ml Exam Constitutional: alert, oriented Neck: thyromegaly (Multinodular goiter.) Respiratory: clear to auscultation Cardiovascular: irregular rhythm Results Result Diagram: 10/30/16 0648 10/30/16 0648 Results 24 hrs Laboratory Tests Test 10/29/16 13:43 10/29/16 13:44 10/30/16 06:48 White Blood Count 7.6 7.8 Red Blood Count 3.27 L 3.55 L Hemoglobin 10.1 L 10.7 L Hematocrit 30.4 L 32.8 L Mean Corpuscular Volume 93.0 92.4 Mean Corpuscular Hemoglobin 30.9 30.1 Mean Corpuscular Hemoglobin Concent 33.2 32.6 Red Cell Distribution Width 15.1 H 14.9 H Platelet Count 159 168 Mean Platelet Volume 10.2 10.3 Neutrophils % 72.7 63.1 Lymphocytes % 12.1 L 18.2 Monocytes % 8.8 10.7 Eosinophils % 5.6 7.0 Basophils % 0.4 0.6 Nucleated Red Blood Cells % 0.0 0.0 Neutrophils # 5.6 4.9 Lymphocytes # 0.9 1.4 Monocytes # 0.7 0.8 Eosinophils # 0.4 0.6 H Basophils # 0.0 0.1 Nucleated Red Blood Cells # 0.0 0.0 Sodium Level 143 146 H Potassium Level 4.0 3.7 Chloride Level 108 105 Carbon Dioxide Level 21 27 Anion Gap 18 H 18 H Blood Urea Nitrogen 15 15 Creatinine 0.72 0.68 Glucose Level 152 99 # Calcium Level 9.1 10.0 Phosphorus Level 2.8 2.5 Magnesium Level 1.7 1.8 B-Type Natriuretic Peptide 4180 H Medications Medications Current Medications Tamsulosin HCl (Flomax) 0.4 mg HS PO Last administered on 10/29/16 21:00; Admin Dose 0.4 MG; Start 10/24/16 at 21:00 Atorvastatin Calcium 10 mg 10 mg DAILY@21 PO Last administered on 10/29/16 21: 00; Admin Dose 10 MG; Start 10/24/16 at 21:00 Sodium Chloride (NS) 1,000 ml @ 60 mls/hr [id number] IV Last administered on 12:13; Admin Dose 60 MLS/HR; Start 10/24/16 at 15:16 Ondansetron HCl (Zofran Inj) 4 mg Q6H PRN IV NAUSEA AND/OR VOMITING; Start 10/24 at 15:30 Acetaminophen (Tylenol Tab) 650 mg Q6H PRN PO PAIN LEVEL 1-3 OR FEVER; Start at 15:30 Acetaminophen (Tylenol Supp) 650 mg Q6H PRN [place] PAIN LEVEL 1-3 OR FEVER; Start 10/24/16 at 15:30 Acetaminophen/ Hydrocodone Bitart ([place] (5/325)) 1 tab Q6H PRN PO MODERATE PAIN LEVEL 4-6; Start 10/24/16 at 15:30 Acetaminophen/ Hydrocodone Bitart ([place] (5/325)) 2 tab Q6H PRN PO SEVERE PAIN LEVEL 7-10; Start 10/24/16 at 15:30 Docusate Sodium (Colace) 100 mg Q12H PRN PO CONSTIPATION; Start 10/24/16 at 15: 30 Magnesium Hydroxide (Milk Of Mag) 30 ml DAILY PRN PO CONSTIPATION; Start at 15:30 Bisacodyl (Dulcolax Supp) 10 mg DAILY PRN [place] CONSTIPATION; Start 10/24/16 at 15: 30 Morphine Sulfate (morphine) 2 mg Q4H PRN IV SEVERE PAIN LEVEL 7-10; Start at 11:00 Methimazole (Tapazole) 20 mg QAM PO Last administered on 10/30/16 09:34; Admin Dose 20 MG; Start 10/26/16 at 09:00 Metoprolol Tartrate (Lopressor) 50 mg BID PO Last administered on 10/30/16 09: 34; Admin Dose 50 MG; Start 10/29/16 at 21:00 Pantoprazole (Protonix Tab) 40 mg DAILY@06 PO ; Start 10/31/16 at 06:00 CHRISTIE CLARKE MD Oct 30, 2016 09:53
[2016-10-30] MEDS ORDERED: FUROSEMIDE 20 MG INJ IV ONE (10:00)
--- NOTE | 2016-10-30 10:02 | PN ---
Date/Time of Note Date/Time of Note DATE: 10/30/16 TIME: 09:52 Assessment/Plan VTE Prophylaxis VTE Prophylaxis Intervention: contraindicated Lines/Catheters IV [facility] Peripheral IV Urinary Cath still in place: No Assessment/Plan Chief Complaint/Hosp Course 1. Hematochezia. Status post colonoscopy on 10/27/2016 that revealed moderate sized internal hemorrhoids. Continue to replace blood products as indicated. 2. Normocytic, normochromic anemia. Most probably anemia of acute blood loss. Anticoagulation on hold. Transfuse blood products as needed. Continue proton pump inhibitors. 3. Atrial fibrillation with rapid ventricular response. The patient being followed by cardiology. Rate controlled. Anticoagulation on hold because of underlying anemia. 4. Hyperthyroidism. Continue management as per endocrinology. 5. Essential hypertension. Continue antihypertensives. 6. Dyslipidemia. Continue statins. 7. Acute respiratory failure. Hypoxic. Continue supplemental oxygen. Continue inhaled bronchodilators. Chest x-ray showing multifocal alveolar opacities which are incompletely characterized with small bilateral pleural effusions. Chest CT scan showing multiple bilateral lung nodules, small bilateral pleural effusions with overlying posterior atelectasis. There was also incidental finding of cystic attenuation lesions in the right liver measuring up to 12 mm and small to moderate amount of ascites. Will obtain pulmonology evaluation. Will obtain an alpha-fetoprotein level. 8. Benign prostatic hypertrophy. Continue tamsulosin. 9. Fluids, electrolytes, and nutrition. Controlled diet. 10. Gastrointestinal prophylaxis. Proton pump inhibitors. 11. DVT prophylaxis. Contraindicated because of current GI bleeding 11. Plan. Continue current management. Obtain pulmonology evaluation. Stop IV fluids. Diurese the patient. Case discussed with Dr. Ruiz Problems: Subjective 24 Hr Interval Summary Free Text/Dictation "Feeling better." Exam/Review of Systems Vital Signs Vitals Vital Signs Date Time Temp Pulse Resp B/P Pulse Ox O2 Delivery O2 Flow Rate FiO2 10/30/16 08:27 74 22 97 Nasal Cannula 2.0 10/30/16 07:45 97.5 139/69 Intake and Output 10/29/16 10/29/16 10/30/16 15:00 23:00 07:00 Intake Total 1000 ml 800 ml Output Total 1000 ml 800 ml Balance 0 ml 0 ml Exam General: Adequately build 81 year-old male lying in bed in mild respiratory distress. HEENT: Normocephalic, atraumatic. Eyes: Anicteric sclerae, conjunctivae clear. ENT: Nasal septum midline, oral mucosa moist. Neck supple, no JVD noticed. Respiratory: Bilaterally diminished breath sounds. Use of accessory muscles of respiration. No adventitious breath sounds. Cardiovascular: S1, S2 heard. Irregularly irregular rhythm. Abdomen: Soft, nontender, and nondistended. Bowel sounds positive in all 4 quadrants. Genitourinary: Deferred. Extremities: No cyanosis. Bilateral lower extremity 2+ pitting edema.. Peripheral pulses palpable. Neurologic: Cranial nerves II through XII grossly intact. The patient is awake, alert, and oriented. Skin: Normal skin turgor. No skin rashes. Results Result Diagram: 10/30/16 0648 10/30/16 0648 Results 24 hrs Laboratory Tests Test 10/29/16 13:43 10/29/16 13:44 10/30/16 06:48 White Blood Count 7.6 7.8 Red Blood Count 3.27 L 3.55 L Hemoglobin 10.1 L 10.7 L Hematocrit 30.4 L 32.8 L Mean Corpuscular Volume 93.0 92.4 Mean Corpuscular Hemoglobin 30.9 30.1 Mean Corpuscular Hemoglobin Concent 33.2 32.6 Red Cell Distribution Width 15.1 H 14.9 H Platelet Count 159 168 Mean Platelet Volume 10.2 10.3 Neutrophils % 72.7 63.1 Lymphocytes % 12.1 L 18.2 Monocytes % 8.8 10.7 Eosinophils % 5.6 7.0 Basophils % 0.4 0.6 Nucleated Red Blood Cells % 0.0 0.0 Neutrophils # 5.6 4.9 Lymphocytes # 0.9 1.4 Monocytes # 0.7 0.8 Eosinophils # 0.4 0.6 H Basophils # 0.0 0.1 Nucleated Red Blood Cells # 0.0 0.0 Sodium Level 143 146 H Potassium Level 4.0 3.7 Chloride Level 108 105 Carbon Dioxide Level 21 27 Anion Gap 18 H 18 H Blood Urea Nitrogen 15 15 Creatinine 0.72 0.68 Glucose Level 152 99 # Calcium Level 9.1 10.0 Phosphorus Level 2.8 2.5 Magnesium Level 1.7 1.8 B-Type Natriuretic Peptide 4180 H Medications Medications Current Medications Tamsulosin HCl (Flomax) 0.4 mg HS PO Last administered on 10/29/16 21:00; Admin Dose 0.4 MG; Start 10/24/16 at 21:00 Atorvastatin Calcium 10 mg 10 mg DAILY@21 PO Last administered on 10/29/16 21: 00; Admin Dose 10 MG; Start 10/24/16 at 21:00 Sodium Chloride (NS) 1,000 ml @ 60 mls/hr [id number] IV Last administered on 12:13; Admin Dose 60 MLS/HR; Start 10/24/16 at 15:16 Ondansetron HCl (Zofran Inj) 4 mg Q6H PRN IV NAUSEA AND/OR VOMITING; Start 10/24 at 15:30 Acetaminophen (Tylenol Tab) 650 mg Q6H PRN PO PAIN LEVEL 1-3 OR FEVER; Start at 15:30 Acetaminophen (Tylenol Supp) 650 mg Q6H PRN [place] PAIN LEVEL 1-3 OR FEVER; Start 10/24/16 at 15:30 Acetaminophen/ Hydrocodone Bitart ([place] (5/325)) 1 tab Q6H PRN PO MODERATE PAIN LEVEL 4-6; Start 10/24/16 at 15:30 Acetaminophen/ Hydrocodone Bitart ([place] (5/325)) 2 tab Q6H PRN PO SEVERE PAIN LEVEL 7-10; Start 10/24/16 at 15:30 Docusate Sodium (Colace) 100 mg Q12H PRN PO CONSTIPATION; Start 10/24/16 at 15: 30 Magnesium Hydroxide (Milk Of Mag) 30 ml DAILY PRN PO CONSTIPATION; Start at 15:30 Bisacodyl (Dulcolax Supp) 10 mg DAILY PRN [place] CONSTIPATION; Start 10/24/16 at 15: 30 Morphine Sulfate (morphine) 2 mg Q4H PRN IV SEVERE PAIN LEVEL 7-10; Start at 11:00 Methimazole (Tapazole) 20 mg QAM PO Last administered on 10/30/16 09:34; Admin Dose 20 MG; Start 10/26/16 at 09:00 Metoprolol Tartrate (Lopressor) 50 mg BID PO Last administered on 10/30/16 09: 34; Admin Dose 50 MG; Start 10/29/16 at 21:00 Pantoprazole (Protonix Tab) 40 mg DAILY@06 PO ; Start 10/31/16 at 06:00 ERIC PELAYO NP Oct 30, 2016 10:01
--- NOTE | 2016-10-30 14:01 | CONS ---
Date/Time of Note Date/Time of Note DATE: 10/30/16 TIME: 13:57 Assessment/Plan Assessment/Plan Chief Complaint/Hosp Course Assessment: Atrial fibrillation, likely chronic - rapid ventricular rates in setting of thyrotoxicosis, rates now improved Thyrotoxicosis - status post propylthiouracil, on methimazole per endocrinology Hematochezia and anemia - colonoscopy found large internal hemorrhoids, thought to be likely source of bleed Supratherapeutic INR - >10 on presentation, now normalized Hypertension Dyslipidemia Benign prostate hyperplasia Multiple pulmonary nodules - work up per primary team Recommendations: -echocardiogram showed LVEF 55-60%, moderate bi-atrial enlargement -increase metoprolol to 75mg BID -start aspirin 325mg daily for now, defer anticoagulation, reassess as outpatient -continue statin Problems: Consultation Date/Type/Reason Admit Date/Time Oct 24, 2016 at 12:02 Initial Consult Date 10/25/16 Type of Consultation: Cardiology 24 HR Interval Summary Free Text/Dictation Remains in atrial fibrillation, rates up to 90s-100s. No further pauses. Had chest CT yesterday. Detailed Summary Additional Comments 14 point review of systems without changes. Exam/Review of Systems Vital Signs Vitals Vital Signs Date Time Temp Pulse Resp B/P Pulse Ox O2 Delivery O2 Flow Rate FiO2 10/30/16 12:10 97.6 79 18 130/79 100 Nasal Cannula 3.0 Intake and Output 10/29/16 10/29/16 10/30/16 15:00 23:00 07:00 Intake Total 1000 ml 800 ml Output Total 1000 ml 800 ml Balance 0 ml 0 ml Exam Constitutional: alert, well developed Psych: nl mood/affect, no complaints Head: atraumatic, normocephalic Eyes: nl conjunctiva, nl lids ENMT: nl external ears & nose, nl nasal mucosa & septum Neck: non-tender, supple, No jvd Respiratory: clear to auscultation Cardiovascular: irregular rhythm Gastrointestinal: non-tender, soft Musculoskeletal: nl extremities to inspection Extremities: No clubbing, No cyanosis, No edema Neurological: nl mental status, nl speech Skin: nl turgor Results Result Diagram: 10/30/16 0648 10/30/16 0648 Results 24 hrs Laboratory Tests Test 10/30/16 06:48 10/30/16 11:25 White Blood Count 7.8 Red Blood Count 3.55 L Hemoglobin 10.7 L Hematocrit 32.8 L Mean Corpuscular Volume 92.4 Mean Corpuscular Hemoglobin 30.1 Mean Corpuscular Hemoglobin Concent 32.6 Red Cell Distribution Width 14.9 H Platelet Count 168 Mean Platelet Volume 10.3 Neutrophils % 63.1 Lymphocytes % 18.2 Monocytes % 10.7 Eosinophils % 7.0 Basophils % 0.6 Nucleated Red Blood Cells % 0.0 Neutrophils # 4.9 Lymphocytes # 1.4 Monocytes # 0.8 Eosinophils # 0.6 H Basophils # 0.1 Nucleated Red Blood Cells # 0.0 Sodium Level 146 H Potassium Level 3.7 Chloride Level 105 Carbon Dioxide Level 27 Anion Gap 18 H Blood Urea Nitrogen 15 Creatinine 0.68 Glucose Level 99 # Calcium Level 10.0 Phosphorus Level 2.5 Magnesium Level 1.8 Alpha Fetoprotein 0.87 Carcinoembryonic Antigen 3.9 Free Thyroxine 2.82 H Medications Medications Current Medications Tamsulosin HCl (Flomax) 0.4 mg HS PO Last administered on 10/29/16 21:00; Admin Dose 0.4 MG; Start 10/24/16 at 21:00 Atorvastatin Calcium (Lipitor) 10 mg DAILY@21 PO Last administered on 10/29/16 21:00; Admin Dose 10 MG; Start 10/24/16 at 21:00 Ondansetron HCl (Zofran Inj) 4 mg Q6H PRN IV NAUSEA AND/OR VOMITING; Start 10/24 at 15:30 Acetaminophen (Tylenol Tab) 650 mg Q6H PRN PO PAIN LEVEL 1-3 OR FEVER; Start at 15:30 Acetaminophen (Tylenol Supp) 650 mg Q6H PRN [place] PAIN LEVEL 1-3 OR FEVER; Start 10/24/16 at 15:30 Acetaminophen/ Hydrocodone Bitart ([place] (5/325)) 1 tab Q6H PRN PO MODERATE PAIN LEVEL 4-6; Start 10/24/16 at 15:30 Acetaminophen/ Hydrocodone Bitart ([place] (5/325)) 2 tab Q6H PRN PO SEVERE PAIN LEVEL 7-10; Start 10/24/16 at 15:30 Docusate Sodium (Colace) 100 mg Q12H PRN PO CONSTIPATION; Start 10/24/16 at 15: 30 Magnesium Hydroxide (Milk Of Mag) 30 ml DAILY PRN PO CONSTIPATION; Start at 15:30 Bisacodyl (Dulcolax Supp) 10 mg DAILY PRN [place] CONSTIPATION; Start 10/24/16 at 15: 30 Morphine Sulfate (morphine) 2 mg Q4H PRN IV SEVERE PAIN LEVEL 7-10; Start at 11:00 Methimazole (Tapazole) 20 mg QAM PO Last administered on 10/30/16 09:34; Admin Dose 20 MG; Start 10/26/16 at 09:00 Metoprolol Tartrate (Lopressor) 50 mg BID PO Last administered on 10/30/16 09: 34; Admin Dose 50 MG; Start 10/29/16 at 21:00 Pantoprazole (Protonix Tab) 40 mg DAILY@06 PO ; Start 10/31/16 at 06:00 VINICIO BRAGA MD Oct 30, 2016 14:01
[2016-10-30] MEDS: FUROSEMIDE 20 MG INJ IV SCH (18:11)
[2016-10-30] MEDS ORDERED: METOPROLOL 25 MG TAB PO SCH (21:00)
[2016-10-30] MEDS: ATORVASTATIN 10 MG TAB PO SCH (21:51)
[2016-10-30] MEDS: TAMSULOSIN (SR) 0.4 MG CAP PO SCH (21:51)
[2016-10-31] VITALS (9 sets, daily range): BP systolic 131–159; BP diastolic 67–93; PULSE 65–173; RESP 18–20
[2016-10-31] MEDS: LEVALBUTEROL (NEB) 0.63 MG/3 ML AMP HHN SCH ×4 (01:23→19:56)
[2016-10-31] MEDS: PANTOPRAZOLE (EC) 40 MG TAB PO SCH (06:14)
[2016-10-31] MEDS: FUROSEMIDE 20 MG INJ IV SCH ×2 (06:14→18:01)
[2016-10-31 07:46] LABS: BASOPHIL # 0.1 10^3/ul (0.0-0.1); BASOPHILS % 0.6 % (0.0-2.0); EOSINOPHILS # 0.7 10^3/ul (0.0-0.5); EOSINOPHILS % 8.2 % (0.0-7.0); HEMATOCRIT 33.3 % (42.0-52.0); LYMPHOCYTES # 1.7 10^3/ul (0.8-2.9); LYMPHOCYTES % 20.2 % (15.0-51.0); MEAN CORPUSCULAR HEMOGLOBIN 30.2 pg (29.0-33.0); MEAN CORPUSCULAR VOLUME 91.5 fl (82.0-101.0); MEAN PLATELET VOLUME 10.3 fl (7.4-10.4); MONOCYTE # 0.9 10^3/ul (0.3-0.9); MONOCYTES % 10.6 % (0.0-11.0); NEUTROPHILS % 60.2 % (39.0-77.0); PLATELET COUNT 189 10^3/UL (140-415); RED BLOOD COUNT 3.64 10^6/ul (4.70-6.10); WHITE BLOOD COUNT 8.3 10^3/ul (4.8-10.8)
[2016-10-31 08:14] LABS: MAGNESIUM 1.6 mg/dl (1.7-2.5); PHOSPHORUS 3.3 mg/dl (2.5-4.9)
[2016-10-31 08:15] LABS: ALBUMIN 3.6 g/dl (3.3-4.9); ALBUMIN/GLOBULIN RATIO 1.16; BILIRUBIN,INDIRECT 1.4 mg/dl (0-1.1); BILIRUBIN,TOTAL 1.4 mg/dl (0.2-1.3); CALCIUM 9.8 mg/dl (8.4-10.2); CREATININE 0.74 mg/dl (0.61-1.24); POTASSIUM 3.4 mmol/L (3.5-5.1); TOTAL PROTEIN 6.7 g/dl (6.1-8.1)
[2016-10-31] MEDS ORDERED: ASPIRIN (EC) 325 MG TAB PO SCH (09:00)
[2016-10-31] MEDS: METOPROLOL 100 MG TAB PO SCH ×2 (09:18→20:34)
[2016-10-31] MEDS: METHIMAZOLE 5 MG TAB PO SCH (09:18)
[2016-10-31] MEDS: DIGOXIN 0.25 MG TAB PO SCH (12:17)
--- NOTE | 2016-10-31 14:59 | CONS ---
Date/Time of Note Date/Time of Note DATE: 10/31/16 TIME: 14:57 Assessment/Plan Assessment/Plan Chief Complaint/Hosp Course 81-year-old [place] gentleman who receives his care at [facility]. He reports no prior history of ever having been told of any type of thyroid disorder. He did have some odynophagia in the remote past. He reports in the last 1 month he had been identified as having atrial fibrillation at an urgent care center. He was placed on anticoagulation has now come in with a significant GI bleed. On careful review of systems he has had symptoms of hyperthyroidism for at least 6 months if not much longer Problems: (1) Multiple lung nodules on CT Status: Acute Comment: As for evaluation of Dr. Cuong alaniz. If this patient also has a thyroid cancer could metastasize this way. 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 Continue same dosing. When the patient is stable medically from their other issues I will follow him up as an outpatient and get this treated more formally. This would mean radioactive iodine ablation Consultation Date/Type/Reason Admit Date/Time Oct 24, 2016 at 12:02 Initial Consult Date 10/25/16 Type of Consultation: Endocrinology Reason for Consultation Hyperthyroid multinodular goiter with massive goiter the reaches retrosternally 24 HR Interval Summary Constitutional: no complaints (Patient reports he is doing well without fevers chills or sweats. Still with dyspnea on exertion) Exam/Review of Systems Vital Signs Vitals Vital Signs Date Time Temp Pulse Resp B/P Pulse Ox O2 Delivery O2 Flow Rate FiO2 10/31/16 14:42 2.0 10/31/16 14:42 86 20 98 Nasal Cannula 10/31/16 12:33 97.9 135/67 Intake and Output 10/30/16 10/30/16 10/31/16 15:00 23:00 07:00 Intake Total 720 ml Output Total 600 ml Balance 120 ml Exam No changes Results Result Diagram: 10/31/16 0715 10/31/16 0715 Results 24 hrs Laboratory Tests Test 10/31/16 07:15 White Blood Count 8.3 Red Blood Count 3.64 L Hemoglobin 11.0 L Hematocrit 33.3 L Mean Corpuscular Volume 91.5 Mean Corpuscular Hemoglobin 30.2 Mean Corpuscular Hemoglobin Concent 33.0 Red Cell Distribution Width 15.0 H Platelet Count 189 Mean Platelet Volume 10.3 Neutrophils % 60.2 Lymphocytes % 20.2 Monocytes % 10.6 Eosinophils % 8.2 H Basophils % 0.6 Nucleated Red Blood Cells % 0.0 Neutrophils # 5.0 Lymphocytes # 1.7 Monocytes # 0.9 Eosinophils # 0.7 H Basophils # 0.1 Nucleated Red Blood Cells # 0.0 Sodium Level 145 H Potassium Level 3.4 L Chloride Level 97 Carbon Dioxide Level 32 H Anion Gap 19 H Blood Urea Nitrogen 12 Creatinine 0.74 Glucose Level 83 Calcium Level 9.8 Phosphorus Level 3.3 Magnesium Level 1.6 L Total Bilirubin 1.4 H Direct Bilirubin 0.00 Indirect Bilirubin 1.4 H Aspartate Amino Transf (AST/SGOT) 28 Alanine Aminotransferase (ALT/SGPT) 40 Alkaline Phosphatase 98 Total Protein 6.7 Albumin 3.6 Globulin 3.10 Albumin/Globulin Ratio 1.16 Medications Medications Current Medications Tamsulosin HCl (Flomax) 0.4 mg HS PO Last administered on 10/30/16 21:51; Admin Dose 0.4 MG; Start 10/24/16 at 21:00 Atorvastatin Calcium (Lipitor) 10 mg DAILY@21 PO Last administered on 21:51; Admin Dose 10 MG; Start 10/24/16 at 21:00 Ondansetron HCl (Zofran Inj) 4 mg Q6H PRN IV NAUSEA AND/OR VOMITING; Start 10/24 at 15:30 Acetaminophen (Tylenol Tab) 650 mg Q6H PRN PO PAIN LEVEL 1-3 OR FEVER; Start at 15:30 Acetaminophen (Tylenol Supp) 650 mg Q6H PRN [place] PAIN LEVEL 1-3 OR FEVER; Start 10/24/16 at 15:30 Acetaminophen/ Hydrocodone Bitart ([place] (5/325)) 1 tab Q6H PRN PO MODERATE PAIN LEVEL 4-6; Start 10/24/16 at 15:30 Acetaminophen/ Hydrocodone Bitart ([place] (5/325)) 2 tab Q6H PRN PO SEVERE PAIN LEVEL 7-10; Start 10/24/16 at 15:30 Docusate Sodium (Colace) 100 mg Q12H PRN PO CONSTIPATION; Start 10/24/16 at 15: 30 Magnesium Hydroxide (Milk Of Mag) 30 ml DAILY PRN PO CONSTIPATION; Start at 15:30 Bisacodyl (Dulcolax Supp) 10 mg DAILY PRN [place] CONSTIPATION; Start 10/24/16 at 15: 30 Morphine Sulfate (morphine) 2 mg Q4H PRN IV SEVERE PAIN LEVEL 7-10; Start at 11:00 Methimazole (Tapazole) 20 mg QAM PO Last administered on 10/31/16 09:18; Admin Dose 20 MG; Start 10/26/16 at 09:00 Pantoprazole (Protonix Tab) 40 mg DAILY@06 PO Last administered on 10/31/16 06 :14; Admin Dose 40 MG; Start 10/31/16 at 06:00 Aspirin (Ecotrin) 325 mg DAILY PO Last administered on 10/31/16 09:18; Admin Dose 325 MG; Start 10/31/16 at 09:00 Metoprolol Tartrate (Lopressor) 100 mg BID PO Last administered on 10/31/16 09 :18; Admin Dose 100 MG; Start 10/30/16 at 21:00 Digoxin (Digoxin) 0.25 mg DAILY@13 PO Last administered on 10/31/16 12:17; Admin Dose 0.25 MG; Start 10/31/16 at 11:01 CRHISTIE CLARKE MD Oct 31, 2016 14:59
--- NOTE | 2016-10-31 15:10 | CONS ---
Date/Time of Note Date/Time of Note DATE: 10/31/16 TIME: 15:02 Assessment/Plan Assessment/Plan Chief Complaint/Hosp Course Assessment 1. Acute GI bleed likely secondary to hemorrhoids 2. Atrial fibrillation with rapid ventricular rate previously on anticoagulation 3. Hyperthyroidism with toxic multinodular goiter 4. Multiple pulmonary nodules. Etiology concerning for possible malignancy Plan 1. Continue rate control 2. Cardiac recommendations 3. Continue methimazole and endocrinology recommendations 4. Possible thyroid biopsy once hyperthyroidism has resolved. 5. Outpatient PET scan. Problems: Consultation Date/Type/Reason Admit Date/Time Oct 24, 2016 at 12:02 Date of Consultation: Oct 31, 2016 Type of Consultation: Pulmonary Reason for Consultation Abnormal chest CT Hx of Present Illness 81-year-old gentleman originally presented to [facility] on 10/24/2016 with several day history of abdominal discomfort and bright red blood per rectum. History of atrial fibrillation on anticoagulation however patient per chart had not had his INR checked recently. On admission patient found to have supratherapeutic INR with coronary administration [facility]. On admission found to have anemia with a hemoglobin of 8.4 hyponatremia and atrial fibrillation with rapid ventricular rate. Colonoscopy was performed on 10/27/2016 patient was found to have large hemorrhoids.Otherwise normal colonoscopy to cecum. In addition patient found to have hypothyroidism with evidence of thyroid nodules. In addition chest CT demonstrated multiple pulmonary nodules and possible liver lesion. Patient denies any prior history of lung problems denies any history of TB or TB exposure that he is aware of. No hemoptysis or hematemesis. As above Constitutional: no complaints (Patient reports he is doing well without fevers chills or sweats. Still with dyspnea on exertion) Eyes: no complaints ENT: no complaints Respiratory: shortness of breath Cardiovascular: palpitations Gastrointestinal: diarrhea Genitourinary: no complaints Musculoskeletal: no complaints Skin: no complaints Neurologic: no complaints, other (Does note tremor which he reports he has had for 3 years) Lymphatic: no complaints Psychological: nl mood/affect, no complaints Immunologic: no complaints Past Medical History As above Medical History: hypertension Past Surgical History Past Surgical Hx: noncontributory Social History Alcohol Use: none Smoking Status: Never smoker Drug Use: none Exam/Review of Systems Vital Signs Vitals Vital Signs Date Time Temp Pulse Resp B/P Pulse Ox O2 Delivery O2 Flow Rate FiO2 10/31/16 14:42 2.0 10/31/16 14:42 86 20 98 Nasal Cannula 10/31/16 12:33 97.9 135/67 Intake and Output 10/30/16 10/30/16 10/31/16 14:59 22:59 06:59 Intake Total 720 ml Output Total 600 ml Balance 120 ml Exam GENERAL: Elderly Italian gentleman comfortable at rest no acute distress VITAL SIGNS: per chart NECK: Supple. No JVD or lymphadenopathy. CARDIAC EXAM: S1, S2. No added sounds or murmurs. CHEST: clear bilaterally, No added sounds, rales or wheezes ABDOMEN: Soft, nontender. No guarding or rebound. EXTREMITIES: No cyanosis, clubbing or edema. NEUROLOGIC: Generalized weakness. No focal deficits. Results Result Diagram: 10/31/1615 10/31/16 0715 Results 24 hrs Laboratory Tests Test 10/31/16 07:15 White Blood Count 8.3 Red Blood Count 3.64 L Hemoglobin 11.0 L Hematocrit 33.3 L Mean Corpuscular Volume 91.5 Mean Corpuscular Hemoglobin 30.2 Mean Corpuscular Hemoglobin Concent 33.0 Red Cell Distribution Width 15.0 H Platelet Count 189 Mean Platelet Volume 10.3 Neutrophils % 60.2 Lymphocytes % 20.2 Monocytes % 10.6 Eosinophils % 8.2 H Basophils % 0.6 Nucleated Red Blood Cells % 0.0 Neutrophils # 5.0 Lymphocytes # 1.7 Monocytes # 0.9 Eosinophils # 0.7 H Basophils # 0.1 Nucleated Red Blood Cells # 0.0 Sodium Level 145 H Potassium Level 3.4 L Chloride Level 97 Carbon Dioxide Level 32 H Anion Gap 19 H Blood Urea Nitrogen 12 Creatinine 0.74 Glucose Level 83 Calcium Level 9.8 Phosphorus Level 3.3 Magnesium Level 1.6 L Total Bilirubin 1.4 H Direct Bilirubin 0.00 Indirect Bilirubin 1.4 H Aspartate Amino Transf (AST/SGOT) 28 Alanine Aminotransferase (ALT/SGPT) 40 Alkaline Phosphatase 98 Total Protein 6.7 Albumin 3.6 Globulin 3.10 Albumin/Globulin Ratio 1.16 Medications Medications Current Medications Tamsulosin HCl (Flomax) 0.4 mg HS PO Last administered on 10/30/16t 21:51; Admin Dose 0.4 MG; Start 10/24/16 at 21:00 Atorvastatin Calcium (Lipitor) 10 mg DAILY@21 PO Last administered on 21:51; Admin Dose 10 MG; Start 10/24/16 at 21:00 Ondansetron HCl (Zofran Inj) 4 mg Q6H PRN IV NAUSEA AND/OR VOMITING; Start 10/24 at 15:30 Acetaminophen (Tylenol Tab) 650 mg Q6H PRN PO PAIN LEVEL 1-3 OR FEVER; Start at 15:30 Acetaminophen (Tylenol Supp) 650 mg Q6H PRN [place] PAIN LEVEL 1-3 OR FEVER; Start 10/24/16 at 15:30 Acetaminophen/ Hydrocodone Bitart ([place] (5/325)) 1 tab Q6H PRN PO MODERATE PAIN LEVEL 4-6; Start 10/24/16 at 15:30 Acetaminophen/ Hydrocodone Bitart ([place] (5/325)) 2 tab Q6H PRN PO SEVERE PAIN LEVEL 7-10; Start 10/24/16 at 15:30 Docusate Sodium (Colace) 100 mg Q12H PRN PO CONSTIPATION; Start 10/24/16 at 15: 30 Magnesium Hydroxide (Milk Of Mag) 30 ml DAILY PRN PO CONSTIPATION; Start at 15:30 Bisacodyl (Dulcolax Supp) 10 mg DAILY PRN [place] CONSTIPATION; Start 10/24/16 at 15: 30 Morphine Sulfate (morphine) 2 mg Q4H PRN IV SEVERE PAIN LEVEL 7-10; Start at 11:00 Methimazole (Tapazole) 20 mg QAM PO Last administered on 10/31/16 09:18; Admin Dose 20 MG; Start 10/26/16 at 09:00 Pantoprazole (Protonix Tab) 40 mg DAILY@06 PO Last administered on 10/31/16 06 :14; Admin Dose 40 MG; Start 10/31/16 at 06:00 Aspirin (Ecotrin) 325 mg DAILY PO Last administered on 10/31/16 09:18; Admin Dose 325 MG; Start 10/31/16 at 09:00 Metoprolol Tartrate (Lopressor) 100 mg BID PO Last administered on 10/31/16 09 :18; Admin Dose 100 MG; Start 10/30/16 at 21:00 Digoxin (Digoxin) 0.25 mg DAILY@13 PO Last administered on 8/11/17at 12:17; Admin Dose 0.25 MG; Start 10/31/16 at 11:01 BEV WHEATLEY MD, [facility] Oct 31, 2016 15:10
--- NOTE | 2016-10-31 16:03 | PN ---
Date/Time of Note Date/Time of Note DATE: 10/31/16 TIME: 16:03 Assessment/Plan VTE Prophylaxis VTE Prophylaxis Intervention: SCD's Lines/Catheters IV Catheter Type (from Nrs): Saline Lock Urinary Cath still in place: No Assessment/Plan Assessment/Plan 81 yo M admitted for hematochezia and anemia, hospitalization c/b RVR (pt with h /o AFib), thyrotoxicosis 2/2 MNG, discovery of lung nodules #hematochezia: Cscope 8.7 with moderate internal hemorrhoids #AFib with RVR: asa 325 for ATC, bb increased yesterday evening by cardiology #MNG/thyrotoxicosis: as per endo #lung lesions: pulm note reviewed, outpatient f/u #?liver lesion: outpatient f/u #HTN/HL/BPH: cont BP, BPH and HL meds discharge once HR control improved Subjective 24 Hr Interval Summary Free Text/Dictation HR still elevated, BB dose increased last night Exam/Review of Systems Vital Signs Vitals Vital Signs Date Time Temp Pulse Resp B/P Pulse Ox O2 Delivery O2 Flow Rate FiO2 10/31/16 14:42 2.0 10/31/16 14:42 86 20 98 Nasal Cannula 10/31/16 12:33 97.9 135/67 Intake and Output 10/30/16 10/30/16 10/31/16 15:00 23:00 07:00 Intake Total 720 ml Output Total 600 ml Balance 120 ml Exam nad, sitting up in chair no mrg lungs clear abd soft no rashes Results Result Diagram: 10/31/16 0715 10/31/16 0715 Results 24 hrs Laboratory Tests Test 10/31/16 07:15 White Blood Count 8.3 Red Blood Count 3.64 L Hemoglobin 11.0 L Hematocrit 33.3 L Mean Corpuscular Volume 91.5 Mean Corpuscular Hemoglobin 30.2 Mean Corpuscular Hemoglobin Concent 33.0 Red Cell Distribution Width 15.0 H Platelet Count 189 Mean Platelet Volume 10.3 Neutrophils % 60.2 Lymphocytes % 20.2 Monocytes % 10.6 Eosinophils % 8.2 H Basophils % 0.6 Nucleated Red Blood Cells % 0.0 Neutrophils # 5.0 Lymphocytes # 1.7 Monocytes # 0.9 Eosinophils # 0.7 H Basophils # 0.1 Nucleated Red Blood Cells # 0.0 Sodium Level 145 H Potassium Level 3.4 L Chloride Level 97 Carbon Dioxide Level 32 H Anion Gap 19 H Blood Urea Nitrogen 12 Creatinine 0.74 Glucose Level 83 Calcium Level 9.8 Phosphorus Level 3.3 Magnesium Level 1.6 L Total Bilirubin 1.4 H Direct Bilirubin 0.00 Indirect Bilirubin 1.4 H Aspartate Amino Transf (AST/SGOT) 28 Alanine Aminotransferase (ALT/SGPT) 40 Alkaline Phosphatase 98 Total Protein 6.7 Albumin 3.6 Globulin 3.10 Albumin/Globulin Ratio 1.16 Medications Medications Current Medications Tamsulosin HCl (Flomax) 0.4 mg HS PO Last administered on 10/30/16 21:51; Admin Dose 0.4 MG; Start 10/24/16 at 21:00 Atorvastatin Calcium (Lipitor) 10 mg DAILY@21 PO Last administered on 21:51; Admin Dose 10 MG; Start 10/24/16 at 21:00 Ondansetron HCl (Zofran Inj) 4 mg Q6H PRN IV NAUSEA AND/OR VOMITING; Start 10/24 at 15:30 Acetaminophen (Tylenol Tab) 650 mg Q6H PRN PO PAIN LEVEL 1-3 OR FEVER; Start at 15:30 Acetaminophen (Tylenol Supp) 650 mg Q6H PRN [place] PAIN LEVEL 1-3 OR FEVER; Start 10/24/16 at 15:30 Acetaminophen/ Hydrocodone Bitart ([place] (5/325)) 1 tab Q6H PRN PO MODERATE PAIN LEVEL 4-6; Start 10/24/16 at 15:30 Acetaminophen/ Hydrocodone Bitart ([place] (5/325)) 2 tab Q6H PRN PO SEVERE PAIN LEVEL 7-10; Start 10/24/16 at 15:30 Docusate Sodium (Colace) 100 mg Q12H PRN PO CONSTIPATION; Start 10/24/16 at 15: 30 Magnesium Hydroxide (Milk Of Mag) 30 ml DAILY PRN PO CONSTIPATION; Start at 15:30 Bisacodyl (Dulcolax Supp) 10 mg DAILY PRN [place] CONSTIPATION; Start 10/24/16 at 15: 30 Morphine Sulfate (morphine) 2 mg Q4H PRN IV SEVERE PAIN LEVEL 7-10; Start at 11:00 Methimazole (Tapazole) 20 mg QAM PO Last administered on 10/31/16 09:18; Admin Dose 20 MG; Start 10/26/16 at 09:00 Pantoprazole (Protonix Tab) 40 mg DAILY@06 PO Last administered on 10/31/16 06 :14; Admin Dose 40 MG; Start 10/31/16 at 06:00 Aspirin (Ecotrin) 325 mg DAILY PO Last administered on 10/31/16 09:18; Admin Dose 325 MG; Start 10/31/16 at 09:00 Metoprolol Tartrate (Lopressor) 100 mg BID PO Last administered on 10/31/16 09 :18; Admin Dose 100 MG; Start 10/30/16 at 21:00 Digoxin (Digoxin) 0.25 mg DAILY@13 PO Last administered on 10/31/16 12:17; Admin Dose 0.25 MG; Start 10/31/16 at 11:01 BEVERLEY MEDINA MD Oct 31, 2016 16:03
[2016-10-31] MEDS ORDERED: POTASSIUM CHLORIDE (SR) 20 MEQ TAB PO STA (20:09)
[2016-10-31] MEDS: ATORVASTATIN 10 MG TAB PO SCH (20:33)
[2016-10-31] MEDS: TAMSULOSIN (SR) 0.4 MG CAP PO SCH (20:35)
--- NOTE | 2016-10-31 21:49 | CONS ---
Date/Time of Note Date/Time of Note DATE: 10/31/16 TIME: 21:43 Assessment/Plan Assessment/Plan Chief Complaint/Hosp Course Assessment: Atrial fibrillation, likely chronic Thyrotoxicosis - status post propylthiouracil, on methimazole per endocrinology Hematochezia and anemia - colonoscopy found large internal hemorrhoids, thought to be likely source of bleed, no further bleeding Supratherapeutic INR - >10 on presentation, now normalized Hypertension Dyslipidemia Benign prostate hyperplasia Multiple pulmonary nodules - work up per pulmonology Recommendations: -echocardiogram showed LVEF 55-60%, moderate bi-atrial enlargement -add digoxin 0.25mg daily -continue metoprolol 100mg BID -resume on anticoagulation - discontinue aspirin and start Eliquis 5mg BID -continue statin Problems: Consultation Date/Type/Reason Admit Date/Time Oct 24, 2016 at 12:02 Initial Consult Date 10/25/16 Type of Consultation: Cardiology 24 HR Interval Summary Free Text/Dictation In atrial fibrillation, intermittent rapid ventricular rates particularly with exertion. Metoprolol was increased to 100mg BID last night. No further bleeding. Detailed Summary Additional Comments 14 point review of systems without changes. Exam/Review of Systems Vital Signs Vitals Vital Signs Date Time Temp Pulse Resp B/P Pulse Ox O2 Delivery O2 Flow Rate FiO2 10/31/16 20:00 97.7 70 20 159/77 100 10/31/16 19:57 21 10/31/16 14:42 2.0 10/31/16 14:42 Nasal Cannula Intake and Output 10/30/16 10/30/16 10/31/16 15:00 23:00 07:00 Intake Total 720 ml Output Total 600 ml Balance 120 ml Exam Constitutional: alert, well developed Psych: nl mood/affect, no complaints Head: atraumatic, normocephalic Eyes: nl conjunctiva, nl lids ENMT: nl external ears & nose, nl nasal mucosa & septum Neck: non-tender, supple, No jvd Respiratory: clear to auscultation Cardiovascular: irregular rhythm Gastrointestinal: non-tender, soft Musculoskeletal: nl extremities to inspection Extremities: No clubbing, No cyanosis, No edema Neurological: nl mental status, nl speech Skin: nl turgor Results Result Diagram: 10/31/16 0715 10/31/16 0715 Results 24 hrs Laboratory Tests Test 10/31/16 07:15 White Blood Count 8.3 Red Blood Count 3.64 L Hemoglobin 11.0 L Hematocrit 33.3 L Mean Corpuscular Volume 91.5 Mean Corpuscular Hemoglobin 30.2 Mean Corpuscular Hemoglobin Concent 33.0 Red Cell Distribution Width 15.0 H Platelet Count 189 Mean Platelet Volume 10.3 Neutrophils % 60.2 Lymphocytes % 20.2 Monocytes % 10.6 Eosinophils % 8.2 H Basophils % 0.6 Nucleated Red Blood Cells % 0.0 Neutrophils # 5.0 Lymphocytes # 1.7 Monocytes # 0.9 Eosinophils # 0.7 H Basophils # 0.1 Nucleated Red Blood Cells # 0.0 Sodium Level 145 H Potassium Level 3.4 L Chloride Level 97 Carbon Dioxide Level 32 H Anion Gap 19 H Blood Urea Nitrogen 12 Creatinine 0.74 Glucose Level 83 Calcium Level 9.8 Phosphorus Level 3.3 Magnesium Level 1.6 L Total Bilirubin 1.4 H Direct Bilirubin 0.00 Indirect Bilirubin 1.4 H Aspartate Amino Transf (AST/SGOT) 28 Alanine Aminotransferase (ALT/SGPT) 40 Alkaline Phosphatase 98 Total Protein 6.7 Albumin 3.6 Globulin 3.10 Albumin/Globulin Ratio 1.16 Medications Medications Current Medications Tamsulosin HCl (Flomax) 0.4 mg HS PO Last administered on 10/31/16 20:35; Admin Dose 0.4 MG; Start 10/24/16 at 21:00 Atorvastatin Calcium (Lipitor) 10 mg DAILY@21 PO Last administered on 20:33; Admin Dose 10 MG; Start 10/24/16 at 21:00 Ondansetron HCl (Zofran Inj) 4 mg Q6H PRN IV NAUSEA AND/OR VOMITING; Start 10/24 at 15:30 Acetaminophen (Tylenol Tab) 650 mg Q6H PRN PO PAIN LEVEL 1-3 OR FEVER; Start at 15:30 Acetaminophen (Tylenol Supp) 650 mg Q6H PRN [place] PAIN LEVEL 1-3 OR FEVER; Start 10/24/16 at 15:30 Acetaminophen/ Hydrocodone Bitart ([place] (5/325)) 1 tab Q6H PRN PO MODERATE PAIN LEVEL 4-6; Start 10/24/16 at 15:30 Acetaminophen/ Hydrocodone Bitart ([place] (5/325)) 2 tab Q6H PRN PO SEVERE PAIN LEVEL 7-10; Start 10/24/16 at 15:30 Docusate Sodium (Colace) 100 mg Q12H PRN PO CONSTIPATION; Start 10/24/16 at 15: 30 Magnesium Hydroxide (Milk Of Mag) 30 ml DAILY PRN PO CONSTIPATION; Start at 15:30 Bisacodyl (Dulcolax Supp) 10 mg DAILY PRN [place] CONSTIPATION; Start 10/24/16 at 15: 30 Morphine Sulfate (morphine) 2 mg Q4H PRN IV SEVERE PAIN LEVEL 7-10; Start at 11:00 Methimazole (Tapazole) 20 mg QAM PO Last administered on 10/31/16 09:18; Admin Dose 20 MG; Start 10/26/16 at 09:00 Pantoprazole (Protonix Tab) 40 mg DAILY@06 PO Last administered on 10/31/16 06 :14; Admin Dose 40 MG; Start 10/31/16 at 06:00 Aspirin (Ecotrin) 325 mg DAILY PO Last administered on 10/31/16 09:18; Admin Dose 325 MG; Start 10/31/16 at 09:00 Metoprolol Tartrate (Lopressor) 100 mg BID PO Last administered on 10/31/16 20 :34; Admin Dose 100 MG; Start 10/30/16 at 21:00 Digoxin 0.25 mg 0.25 mg DAILY@13 PO Last administered on 10/31/16 12:17; Admin Dose 0.25 MG; Start 10/31/16 at 11:01 Magnesium Sulfate/ Dextrose (Magnesium Sulfate 1 Gm/D5W) 100 ml @ 100 mls/hr ONCE ONCE IVPB ; Start 10/31/16 at 22:00; Stop 10/31/16 at 22:59 VINICIO BRAGA MD Oct 31, 2016 21:49
[2016-10-31] MEDS ORDERED: MAGNESIUM SULFATE 1 GM/D5W 100 ML IVPB ONE (22:00)
[2016-11-01] VITALS (12 sets, daily range): BP systolic 124–161; BP diastolic 68–93; PULSE 73–136; RESP 17–20
[2016-11-01] MEDS: LEVALBUTEROL (NEB) 0.63 MG/3 ML AMP HHN SCH ×4 (01:45→19:16)
[2016-11-01] MEDS: FUROSEMIDE 20 MG INJ IV SCH (06:26)
[2016-11-01] MEDS: PANTOPRAZOLE (EC) 40 MG TAB PO SCH (06:26)
[2016-11-01] MEDS: APIXABAN 5 MG TABLET PO SCH ×2 (09:19→20:43)
[2016-11-01] MEDS: METOPROLOL 100 MG TAB PO SCH ×2 (09:19→20:43)
[2016-11-01] MEDS: METHIMAZOLE 5 MG TAB PO SCH (09:21)
[2016-11-01] MEDS: DIGOXIN 0.25 MG TAB PO SCH (12:47)
--- NOTE | 2016-11-01 12:52 | CONS ---
Date/Time of Note Date/Time of Note DATE: 11/01/16 TIME: 12:50 Consult Date/Type/Reason Admit Date/Time Oct 24, 2016 at 12:02 Initial Consult Date 10/31/16 Type of Consultation: Pulmonary Subjective Doing okay still with moderate weakness. Tachycardia this morning noted. Objective Vital Signs Date Time Temp Pulse Resp B/P Pulse Ox O2 Delivery O2 Flow Rate FiO2 11/01/16 12:14 101 11/01/16 12:03 97.8 18 138/68 93 11/01/16 07:38 21 10/31/16 14:42 2.0 10/31/16 14:42 Nasal Cannula Intake and Output 10/31/16 10/31/16 11/01/16 15:00 23:00 07:00 Intake Total 450 ml 600 ml 250 ml Output Total 2050 ml 450 ml 1550 ml Balance -1600 ml 150 ml -1300 ml Exam GENERAL: Elderly [place] gentleman VITAL SIGNS: per chart NECK: Supple. No JVD or lymphadenopathy. CARDIAC EXAM: S1, S2. No added sounds or murmurs. CHEST: clear bilaterally, No added sounds, rales or wheezes ABDOMEN: Soft, nontender. No guarding or rebound. EXTREMITIES: No cyanosis, clubbing or edema. NEUROLOGIC: Generalized weakness. No focal deficits. Results/Medications Result Diagram: 10/31/1671410/31/16714 Medications Current Medications Tamsulosin HCl (Flomax) 0.4 mg HS PO Last administered on 10/31/16 20:35; Admin Dose 0.4 MG; Start 10/24/16 at 21:00 Atorvastatin Calcium (Lipitor) 10 mg DAILY@21 PO Last administered on 20:33; Admin Dose 10 MG; Start 10/24/16 at 21:00 Ondansetron HCl (Zofran Inj) 4 mg Q6H PRN IV NAUSEA AND/OR VOMITING; Start 10/24 at 15:30 Acetaminophen (Tylenol Tab) 650 mg Q6H PRN PO PAIN LEVEL 1-3 OR FEVER; Start at 15:30 Acetaminophen (Tylenol Supp) 650 mg Q6H PRN [place] PAIN LEVEL 1-3 OR FEVER; Start 10/24/16 at 15:30 Acetaminophen/ Hydrocodone Bitart ([place] (5/325)) 1 tab Q6H PRN PO MODERATE PAIN LEVEL 4-6; Start 10/24/16 at 15:30 Acetaminophen/ Hydrocodone Bitart ([place] (5/325)) 2 tab Q6H PRN PO SEVERE PAIN LEVEL 7-10; Start 10/24/16 at 15:30 Docusate Sodium (Colace) 100 mg Q12H PRN PO CONSTIPATION; Start 10/24/16 at 15: 30 Magnesium Hydroxide (Milk Of Mag) 30 ml DAILY PRN PO CONSTIPATION; Start at 15:30 Bisacodyl (Dulcolax Supp) 10 mg DAILY PRN [place] CONSTIPATION; Start 10/24/16 at 15: 30 Morphine Sulfate (morphine) 2 mg Q4H PRN IV SEVERE PAIN LEVEL 7-10; Start at 11:00 Methimazole (Tapazole) 20 mg QAM PO Last administered on 11/01/16 09:21; Admin Dose 20 MG; Start 10/26/16 at 09:00 Pantoprazole (Protonix Tab) 40 mg DAILY@06 PO Last administered on 11/01/16 06 :26; Admin Dose 40 MG; Start 10/31/16 at 06:00 Metoprolol Tartrate (Lopressor) 100 mg BID PO Last administered on 11/01/16 09 :19; Admin Dose 100 MG; Start 10/30/16 at 21:00 Digoxin (Digoxin) 0.25 mg DAILY@13 PO Last administered on 10/31/16 12:17; Admin Dose 0.25 MG; Start 10/31/16 at 11:01 Apixaban (Eliquis) 5 mg BID PO Last administered on 11/01/16 09:19; Admin Dose 5 MG; Start 11/01/16 at 09:00 Assessment/Plan Chief Complaint/Hosp Course Assessment 1. Acute GI bleed likely secondary to hemorrhoids 2. Atrial fibrillation with rapid ventricular rate previously on anticoagulation, still tachycardic this morning 3. Hyperthyroidism with toxic multinodular goiter 4. Multiple pulmonary nodules. Etiology concerning for possible malignancy Plan 1. Continue rate control 2. Cardiac recommendations 3. Continue methimazole and endocrinology recommendations 4. Possible thyroid biopsy once hyperthyroidism has resolved. May be performed as an outpatient. 5. Outpatient PET scan to evaluate pulmonary nodules Problems: BEV WHEATLEY MD, [facility] Nov 01, 2016 12:52
[2016-11-01 15:16] LABS: TB-NIL 0.07 IU/mL
[2016-11-01] MEDS: FUROSEMIDE 40 MG TAB PO SCH (17:32)
--- NOTE | 2016-11-01 19:12 | PN ---
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, discovery of lung nodules #hematochezia: Cscope 8.7 with moderate internal hemorrhoids #AFib with RVR: asa 325 for ATC, inc bb yet again #MNG/thyrotoxicosis: as per endo #lung lesions: pulm note reviewed, outpatient f/u #?liver lesion: outpatient f/u #HTN/HL/BPH: cont BP, BPH and HL meds discharge once HR control improved Subjective 24 Hr Interval Summary Free Text/Dictation HR still too high, seen ambulating to bathroom Exam/Review of Systems Vital Signs Vitals Vital Signs Date Time Temp Pulse Resp B/P Pulse Ox O2 Delivery O2 Flow Rate FiO2 11/01/16 16:04 98.5 74 17 124/79 98 11/01/16 13:52 21 10/31/16 14:42 2.0 10/31/16 14:42 Nasal Cannula Intake and Output 10/31/16 10/31/16 11/01/16 15:00 23:00 07:00 Intake Total 450 ml 600 ml 250 ml Output Total 2050 ml 450 ml 1550 ml Balance -1600 ml 150 ml -1300 ml Exam nad resp nonlabored no gorss abd distension no edema no rashes Results Result Diagram: 10/31/16 0715 10/31/16 0715 Medications Medications Current Medications Tamsulosin HCl (Flomax) 0.4 mg HS PO Last administered on 10/31/16 20:35; Admin Dose 0.4 MG; Start 10/24/16 at 21:00 Atorvastatin Calcium (Lipitor) 10 mg DAILY@21 PO Last administered on 20:33; Admin Dose 10 MG; Start 10/24/16 at 21:00 Ondansetron HCl (Zofran Inj) 4 mg Q6H PRN IV NAUSEA AND/OR VOMITING; Start 10/24 at 15:30 Acetaminophen (Tylenol Tab) 650 mg Q6H PRN PO PAIN LEVEL 1-3 OR FEVER; Start at 15:30 Acetaminophen (Tylenol Supp) 650 mg Q6H PRN [place] PAIN LEVEL 1-3 OR FEVER; Start 10/24/16 at 15:30 Acetaminophen/ Hydrocodone Bitart ([place] (5/325)) 1 tab Q6H PRN PO MODERATE PAIN LEVEL 4-6; Start 10/24/16 at 15:30 Acetaminophen/ Hydrocodone Bitart ([place] (5/325)) 2 tab Q6H PRN PO SEVERE PAIN LEVEL 7-10; Start 10/24/16 at 15:30 Docusate Sodium (Colace) 100 mg Q12H PRN PO CONSTIPATION; Start 10/24/16 at 15: 30 Magnesium Hydroxide (Milk Of Mag) 30 ml DAILY PRN PO CONSTIPATION; Start at 15:30 Bisacodyl (Dulcolax Supp) 10 mg DAILY PRN [place] CONSTIPATION; Start 10/24/16 at 15: 30 Morphine Sulfate (morphine) 2 mg Q4H PRN IV SEVERE PAIN LEVEL 7-10; Start at 11:00 Methimazole (Tapazole) 20 mg QAM PO Last administered on 11/01/16 09:21; Admin Dose 20 MG; Start 10/26/16 at 09:00 Pantoprazole (Protonix Tab) 40 mg DAILY@06 PO Last administered on 11/01/16 06 :26; Admin Dose 40 MG; Start 10/31/16 at 06:00 Digoxin (Digoxin) 0.25 mg DAILY@13 PO Last administered on 11/01/16 12:47; Admin Dose 0.25 MG; Start 10/31/16 at 11:01 Apixaban (Eliquis) 5 mg BID PO Last administered on 11/01/16 09:19; Admin Dose 5 MG; Start 11/01/16 at 09:00 Metoprolol Tartrate (Lopressor) 150 mg BID PO ; Start 11/01/16 at 21:00 BEVERLEY MEDINA MD Nov 01, 2016 19:12
[2016-11-01] MEDS: TAMSULOSIN (SR) 0.4 MG CAP PO SCH (20:43)
[2016-11-01] MEDS: ATORVASTATIN 10 MG TAB PO SCH (20:43)
[2016-11-02] VITALS (11 sets, daily range): BP systolic 118–164; BP diastolic 57–81; PULSE 56–88; RESP 17–19
[2016-11-02] MEDS: LEVALBUTEROL (NEB) 0.63 MG/3 ML AMP HHN SCH ×4 (01:00→19:34)
[2016-11-02] MEDS: PANTOPRAZOLE (EC) 40 MG TAB PO SCH (05:45)
[2016-11-02] MEDS: FUROSEMIDE 40 MG TAB PO SCH ×2 (05:47→17:06)
[2016-11-02] MEDS: APIXABAN 5 MG TABLET PO SCH ×2 (08:14→21:00)
[2016-11-02] MEDS: METHIMAZOLE 5 MG TAB PO SCH (08:14)
[2016-11-02] MEDS: METOPROLOL 100 MG TAB PO SCH ×2 (08:14→21:00)
[2016-11-02] MEDS: DIGOXIN 0.25 MG TAB PO SCH (13:08)
--- NOTE | 2016-11-02 14:41 | CONS ---
Date/Time of Note Date/Time of Note DATE: 11/02/16 TIME: 14:41 Consult Date/Type/Reason Admit Date/Time Oct 24, 2016 at 12:02 Initial Consult Date 10/31/16 Type of Consultation: Pulmonary Subjective Comfortable this morning. No respiratory distress. Objective Vital Signs Date Time Temp Pulse Resp B/P Pulse Ox O2 Delivery O2 Flow Rate FiO2 11/02/16 14:08 76 20 97 21 11/02/16 11:48 98.4 118/57 10/31/16 14:42 2.0 10/31/16 14:42 Nasal Cannula Intake and Output 11/01/16 11/01/16 11/02/16 15:00 23:00 07:00 Intake Total 900 ml 300 ml Output Total 950 ml 1350 ml Balance -50 ml -1050 ml Exam GENERAL: Elderly [place]oc[place] gentleman VITAL SIGNS: per chart NECK: Supple. No JVD or lymphadenopathy. CARDIAC EXAM: S1, S2. No added sounds or murmurs. CHEST: clear bilaterally, No added sounds, rales or wheezes ABDOMEN: Soft, nontender. No guarding or rebound. EXTREMITIES: No cyanosis, clubbing or edema. NEUROLOGIC: Generalized weakness. No focal deficits. Results/Medications Result Diagram: 10/31/1671410/31/1615 Medications Current Medications Tamsulosin HCl (Flomax) 0.4 mg HS PO Last administered on 11/01/16 20:43; Admin Dose 0.4 MG; Start 10/24/16 at 21:00 Atorvastatin Calcium (Lipitor) 10 mg DAILY@21 PO Last administered on 20:43; Admin Dose 10 MG; Start 10/24/16 at 21:00 Ondansetron HCl (Zofran Inj) 4 mg Q6H PRN IV NAUSEA AND/OR VOMITING; Start 10/24 at 15:30 Acetaminophen (Tylenol Tab) 650 mg Q6H PRN PO PAIN LEVEL 1-3 OR FEVER; Start at 15:30 Acetaminophen (Tylenol Supp) 650 mg Q6H PRN [place] PAIN LEVEL 1-3 OR FEVER; Start 10/24/16 at 15:30 Acetaminophen/ Hydrocodone Bitart ([place] (5/325)) 1 tab Q6H PRN PO MODERATE PAIN LEVEL 4-6; Start 10/24/16 at 15:30 Acetaminophen/ Hydrocodone Bitart ([place] (5/325)) 2 tab Q6H PRN PO SEVERE PAIN LEVEL 7-10; Start 10/24/16 at 15:30 Docusate Sodium (Colace) 100 mg Q12H PRN PO CONSTIPATION; Start 10/24/16 at 15: 30 Magnesium Hydroxide (Milk Of Mag) 30 ml DAILY PRN PO CONSTIPATION; Start at 15:30 Bisacodyl (Dulcolax Supp) 10 mg DAILY PRN [place] CONSTIPATION; Start 10/24/16 at 15: 30 Morphine Sulfate (morphine) 2 mg Q4H PRN IV SEVERE PAIN LEVEL 7-10; Start at 11:00 Methimazole (Tapazole) 20 mg QAM PO Last administered on 11/02/16 08:14; Admin Dose 20 MG; Start 10/26/16 at 09:00 Pantoprazole (Protonix Tab) 40 mg DAILY@06 PO Last administered on 11/02/16 05 :45; Admin Dose 40 MG; Start 10/31/16 at 06:00 Digoxin (Digoxin) 0.25 mg DAILY@13 PO Last administered on 11/02/16 13:08; Admin Dose 0.25 MG; Start 10/31/16 at 11:01 Apixaban (Eliquis) 5 mg BID PO Last administered on 11/02/16 08:14; Admin Dose 5 MG; Start 11/01/16 at 09:00 Metoprolol Tartrate (Lopressor) 150 mg BID PO Last administered on 11/02/16 08 :14; Admin Dose 150 MG; Start 11/01/16 at 21:00 Assessment/Plan Chief Complaint/Hosp Course Assessment 1. Acute GI bleed likely secondary to hemorrhoids 2. Atrial fibrillation with rapid ventricular rate previously on anticoagulation, still tachycardic this morning 3. Hyperthyroidism with toxic multinodular goiter 4. Multiple pulmonary nodules. Etiology concerning for possible malignancy Plan 1. Continue rate control 2. Cardiac recommendations 3. Continue methimazole and endocrinology recommendations 4. Possible thyroid biopsy once hyperthyroidism has resolved. May be performed as an outpatient. 5. Outpatient PET scan to evaluate pulmonary nodules Problems: BEV WHEATLEY MD, [facility] Nov 02, 2016 14:41
--- NOTE | 2016-11-02 15:39 | PN ---
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 dw consultants prior to discharge Subjective 24 Hr Interval Summary Free Text/Dictation New subconjunctival hemorrhage to R eye. Pt denies pain. States it showed up today Exam/Review of Systems Vital Signs Vitals Vital Signs Date Time Temp Pulse Resp B/P Pulse Ox O2 Delivery O2 Flow Rate FiO2 11/02/16 14:08 76 20 97 21 11/02/16 11:48 98.4 118/57 10/31/16 14:42 2.0 10/31/16 14:42 Nasal Cannula Intake and Output 11/01/16 11/01/16 11/02/16 15:00 23:00 07:00 Intake Total 900 ml 300 ml Output Total 950 ml 1350 ml Balance -50 ml -1050 ml Exam nad, sitting up at side of bed eating breakfast no mrg abd soft no rashes no le edema +subconjunctival hemorrhage to R eye Results Result Diagram: 10/31/1615 10/31/16 0715 Medications Medications Current Medications Tamsulosin HCl (Flomax) 0.4 mg HS PO Last administered on 11/01/16 20:43; Admin Dose 0.4 MG; Start 10/24/16 at 21:00 Atorvastatin Calcium (Lipitor) 10 mg DAILY@21 PO Last administered on 20:43; Admin Dose 10 MG; Start 10/24/16 at 21:00 Ondansetron HCl (Zofran Inj) 4 mg Q6H PRN IV NAUSEA AND/OR VOMITING; Start 10/24 at 15:30 Acetaminophen (Tylenol Tab) 650 mg Q6H PRN PO PAIN LEVEL 1-3 OR FEVER; Start at 15:30 Acetaminophen (Tylenol Supp) 650 mg Q6H PRN [place] PAIN LEVEL 1-3 OR FEVER; Start 10/24/16 at 15:30 Acetaminophen/ Hydrocodone Bitart ([place] (5/325)) 1 tab Q6H PRN PO MODERATE PAIN LEVEL 4-6; Start 10/24/16 at 15:30 Acetaminophen/ Hydrocodone Bitart ([place] (5/325)) 2 tab Q6H PRN PO SEVERE PAIN LEVEL 7-10; Start 10/24/16 at 15:30 Docusate Sodium (Colace) 100 mg Q12H PRN PO CONSTIPATION; Start 10/24/16 at 15: 30 Magnesium Hydroxide (Milk Of Mag) 30 ml DAILY PRN PO CONSTIPATION; Start at 15:30 Bisacodyl (Dulcolax Supp) 10 mg DAILY PRN [place] CONSTIPATION; Start 10/24/16 at 15: 30 Morphine Sulfate (morphine) 2 mg Q4H PRN IV SEVERE PAIN LEVEL 7-10; Start at 11:00 Methimazole (Tapazole) 20 mg QAM PO Last administered on 11/02/16 08:14; Admin Dose 20 MG; Start 10/26/16 at 09:00 Pantoprazole (Protonix Tab) 40 mg DAILY@06 PO Last administered on 11/02/16 05 :45; Admin Dose 40 MG; Start 10/31/16 at 06:00 Digoxin (Digoxin) 0.25 mg DAILY@13 PO Last administered on 11/02/16 13:08; Admin Dose 0.25 MG; Start 10/31/16 at 11:01 Apixaban (Eliquis) 5 mg BID PO Last administered on 11/02/16 08:14; Admin Dose 5 MG; Start 11/01/16 at 09:00 Metoprolol Tartrate (Lopressor) 150 mg BID PO Last administered on 11/02/16 08 :14; Admin Dose 150 MG; Start 11/01/16 at 21:00 BEVERLEY MEDINA MD Nov 02, 2016 15:38
[2016-11-02] MEDS: ATORVASTATIN 10 MG TAB PO SCH (21:00)
[2016-11-02] MEDS: TAMSULOSIN (SR) 0.4 MG CAP PO SCH (21:00)
--- NOTE | 2016-11-02 23:52 | CONS ---
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 PLAN FOR POSSIBLE ABLATION OUT PATIENT IN THE FUTURE Consultation Date/Type/Reason Admit Date/Time Oct 24, 2016 at 12:02 Initial Consult Date 10/31/16 Type of Consultation: ENDOCRINE Reason for Consultation THYROID DISORDER 24 HR Interval Summary Free Text/Dictation PATIENT FEELS LESS SHORT OF BREATH/FATIGUED Exam/Review of Systems Vital Signs Vitals Vital Signs Date Time Temp Pulse Resp B/P Pulse Ox O2 Delivery O2 Flow Rate FiO2 11/02/16 20:07 79 11/02/16 19:57 98.3 19 163/77 94 11/02/16 19:35 21 11/02/16 17:09 Room Air 10/31/16 14:42 2.0 Intake and Output 11/01/16 11/01/16 11/02/16 15:00 23:00 07:00 Intake Total 900 ml 300 ml Output Total 950 ml 1350 ml Balance -50 ml -1050 ml Exam Constitutional: alert Neck: supple, thyromegaly Respiratory: clear to auscultation Cardiovascular: irregular rhythm Gastrointestinal: soft Musculoskeletal: nl extremities to inspection Results Result Diagram: 10/31/16 0715 10/31/16 0715 Medications Medications Current Medications Tamsulosin HCl (Flomax) 0.4 mg HS PO Last administered on 11/02/16 21:00; Admin Dose 0.4 MG; Start 10/24/16 at 21:00 Atorvastatin Calcium (Lipitor) 10 mg DAILY@21 PO Last administered on 21:00; Admin Dose 10 MG; Start 10/24/16 at 21:00 Ondansetron HCl (Zofran Inj) 4 mg Q6H PRN IV NAUSEA AND/OR VOMITING; Start 10/24 at 15:30 Acetaminophen (Tylenol Tab) 650 mg Q6H PRN PO PAIN LEVEL 1-3 OR FEVER; Start at 15:30 Acetaminophen (Tylenol Supp) 650 mg Q6H PRN [place] PAIN LEVEL 1-3 OR FEVER; Start 10/24/16 at 15:30 Acetaminophen/ Hydrocodone Bitart ([place] (5/325)) 1 tab Q6H PRN PO MODERATE PAIN LEVEL 4-6; Start 10/24/16 at 15:30 Acetaminophen/ Hydrocodone Bitart ([place] (5/325)) 2 tab Q6H PRN PO SEVERE PAIN LEVEL 7-10; Start 10/24/16 at 15:30 Docusate Sodium (Colace) 100 mg Q12H PRN PO CONSTIPATION; Start 10/24/16 at 15: 30 Magnesium Hydroxide (Milk Of Mag) 30 ml DAILY PRN PO CONSTIPATION; Start at 15:30 Bisacodyl (Dulcolax Supp) 10 mg DAILY PRN [place] CONSTIPATION; Start 10/24/16 at 15: 30 Morphine Sulfate (morphine) 2 mg Q4H PRN IV SEVERE PAIN LEVEL 7-10; Start at 11:00 Methimazole (Tapazole) 20 mg QAM PO Last administered on 11/02/16 08:14; Admin Dose 20 MG; Start 10/26/16 at 09:00 Pantoprazole (Protonix Tab) 40 mg DAILY@06 PO Last administered on 11/02/16 05 :45; Admin Dose 40 MG; Start 10/31/16 at 06:00 Digoxin (Digoxin) 0.25 mg DAILY@13 PO Last administered on 11/02/16 13:08; Admin Dose 0.25 MG; Start 10/31/16 at 11:01 Apixaban (Eliquis) 5 mg BID PO Last administered on 11/02/16 21:00; Admin Dose 5 MG; Start 11/01/16 at 09:00 Metoprolol Tartrate (Lopressor) 150 mg BID PO Last administered on 11/02/16 21 :00; Admin Dose 150 MG; Start 11/01/16 at 21:00 MARTIN MURILLO MD Nov 02, 2016 23:52
[2016-11-03] VITALS (9 sets, daily range): BP systolic 116–132; BP diastolic 63–79; PULSE 63–87; RESP 17–65
[2016-11-03] MEDS: LEVALBUTEROL (NEB) 0.63 MG/3 ML AMP HHN SCH ×2 (01:01→08:29)
[2016-11-03] MEDS: FUROSEMIDE 40 MG TAB PO SCH (05:53)
[2016-11-03] MEDS: PANTOPRAZOLE (EC) 40 MG TAB PO SCH (05:53)
[2016-11-03] MEDS: METHIMAZOLE 5 MG TAB PO SCH (08:17)
[2016-11-03] MEDS: APIXABAN 5 MG TABLET PO SCH (08:17)
[2016-11-03] MEDS: METOPROLOL 100 MG TAB PO SCH (08:18)
[2016-11-03] MEDS ORDERED: POTASSIUM CHLORIDE (SR) 20 MEQ TAB PO STA (09:27)
[2016-11-03] MEDS ORDERED: MAGNESIUM OXIDE 400 MG TAB PO ONE (09:30)
[2016-11-03 10:51] LABS: CREATININE 0.86 mg/dl (0.61-1.24); MAGNESIUM 1.8 mg/dl (1.7-2.5); PHOSPHORUS 2.9 mg/dl (2.5-4.9); POTASSIUM 3.7 mmol/L (3.5-5.1)
[2016-11-03] MEDS ORDERED: APIX5TAB PO (11:53)
[2016-11-03] MEDS ORDERED: METH-493 PO (11:53)
[2016-11-03] MEDS ORDERED: METO-407 PO (11:53)
--- NOTE | 2016-11-03 11:56 | PDOCDIS ---
Discharge Instructions CONDITION Patient Condition: Good HOME CARE INSTRUCTIONS: Diet Instructions: Regular ACTIVITY: Activity Restrictions: No Restrictions FOLLOW UP/APPOINTMENTS Follow-up Plan F/U WITH YOUR PCP IN 1-2 WEEKS, F/U WITH DR WHEATLEY OF PULMONOLOGY FOR PET SCAN AND F/U WITH DR CLARKE OF ENDOCRINOLOGY FOR TREATMENT OF HYPERTHYROIDISM GIANLUCA VILLA Nov 03, 2016 11:56
[2016-11-03] MEDS: DIGOXIN 0.25 MG TAB PO SCH (13:17)
--- NOTE | 2016-11-03 14:05 | CONS ---
Date/Time of Note Date/Time of Note DATE: 11/03/16 TIME: 14:03 Consult Date/Type/Reason Admit Date/Time Oct 24, 2016 at 12:02 Initial Consult Date 10/31/16 Type of Consultation: Pulmonary Subjective Patient remains comfortable no new events. Objective Vital Signs Date Time Temp Pulse Resp B/P Pulse Ox O2 Delivery O2 Flow Rate FiO2 11/03/16 12:02 68 11/03/16 11:36 98.4 65 116/63 94 11/03/16 08:29 21 11/02/16 20:00 Nasal Cannula 10/31/16 14:42 2.0 Intake and Output 11/02/16 11/02/16 11/03/16 15:00 23:00 07:00 Intake Total 720 ml 220 ml Output Total 1100 ml Balance 720 ml -880 ml Exam GENERAL: Elderly Bangladeshi gentleman VITAL SIGNS: per chart NECK: Supple. No JVD or lymphadenopathy. CARDIAC EXAM: S1, S2. No added sounds or murmurs. CHEST: clear bilaterally, No added sounds, rales or wheezes ABDOMEN: Soft, nontender. No guarding or rebound. EXTREMITIES: No cyanosis, clubbing or edema. NEUROLOGIC: Generalized weakness. No focal deficits. Results/Medications Result Diagram: 10/31/16 0715 11/03/16 0958 Results 24 hrs Laboratory Tests Test 11/03/16 09:58 Sodium Level 138 Potassium Level 3.7 Chloride Level 96 L Carbon Dioxide Level 33 H Anion Gap 13 Blood Urea Nitrogen 15 Creatinine 0.86 Glucose Level 134 Calcium Level 10.0 Phosphorus Level 2.9 Magnesium Level 1.8 Medications Current Medications Tamsulosin HCl (Flomax) 0.4 mg HS PO Last administered on 11/02/16 21:00; Admin Dose 0.4 MG; Start 10/24/16 at 21:00 Atorvastatin Calcium (Lipitor) 10 mg DAILY@21 PO Last administered on 21:00; Admin Dose 10 MG; Start 10/24/16 at 21:00 Ondansetron HCl (Zofran Inj) 4 mg Q6H PRN IV NAUSEA AND/OR VOMITING; Start 10/24 at 15:30 Acetaminophen (Tylenol Tab) 650 mg Q6H PRN PO PAIN LEVEL 1-3 OR FEVER; Start at 15:30 Acetaminophen (Tylenol Supp) 650 mg Q6H PRN [place] PAIN LEVEL 1-3 OR FEVER; Start 10/24/16 at 15:30 Acetaminophen/ Hydrocodone Bitart ([place] (5/325)) 1 tab Q6H PRN PO MODERATE PAIN LEVEL 4-6; Start 10/24/16 at 15:30 Acetaminophen/ Hydrocodone Bitart ([place] (5/325)) 2 tab Q6H PRN PO SEVERE PAIN LEVEL 7-10; Start 10/24/16 at 15:30 Docusate Sodium (Colace) 100 mg Q12H PRN PO CONSTIPATION; Start 10/24/16 at 15: 30 Magnesium Hydroxide (Milk Of Mag) 30 ml DAILY PRN PO CONSTIPATION; Start at 15:30 Bisacodyl (Dulcolax Supp) 10 mg DAILY PRN [place] CONSTIPATION; Start 10/24/16 at 15: 30 Morphine Sulfate (morphine) 2 mg Q4H PRN IV SEVERE PAIN LEVEL 7-10; Start at 11:00 Methimazole (Tapazole) 20 mg QAM PO Last administered on 11/03/16 08:17; Admin Dose 20 MG; Start 10/26/16 at 09:00 Pantoprazole (Protonix Tab) 40 mg DAILY@06 PO Last administered on 11/03/16 05 :53; Admin Dose 40 MG; Start 10/31/16 at 06:00 Digoxin (Digoxin) 0.25 mg DAILY@13 PO Last administered on 11/03/16 13:17; Admin Dose 0.25 MG; Start 10/31/16 at 11:01 Apixaban (Eliquis) 5 mg BID PO Last administered on 11/03/16 08:17; Admin Dose 5 MG; Start 11/01/16 at 09:00 Metoprolol Tartrate (Lopressor) 150 mg BID PO Last administered on 11/03/16 08 :18; Admin Dose 150 MG; Start 11/01/16 at 21:00 Assessment/Plan Chief Complaint/Hosp Course Assessment 1. Acute GI bleed likely secondary to hemorrhoids 2. Atrial fibrillation with rapid ventricular rate previously on anticoagulation, now rate controlled. 3. Hyperthyroidism with toxic multinodular goiter 4. Multiple pulmonary nodules. Etiology concerning for possible malignancy Plan 1. Continue rate control 2. Cardiac recommendations 3. Continue methimazole and endocrinology recommendations 4. Possible thyroid biopsy once hyperthyroidism has resolved. May be performed as an outpatient. 5. Outpatient PET scan to evaluate pulmonary nodules Follow-up with me in the office Discharge planning for today. Problems: BEV WHEATLEY MD, [facility] Nov 03, 2016 14:04
--- NOTE | 2016-11-03 15:26 | DS ---
Date/Time of Note Date/Time of Note DATE: 11/03/16 TIME: 15:21 Discharge Summary Admission/Discharge Info Admit Date/Time Oct 24, 2016 at 12:02 Discharge Date/Time November 03, 2016 Discharge Diagnosis #hematochezia: Cscope 8.7 with moderate internal hemorrhoids #AFib with RVR: asa 325 for ATC, cont metop 150 BID #MNG/thyrotoxicosis: DC with methimazole #lung lesions: Patient to follow-up with pulmonology for outpatient PET scan #?liver lesion: outpatient f/u #HTN/HL/BPH: cont BP, BPH and HL meds Patient Condition: Good Hospital Course Patient is a 81-year-old male with history of hypertension, BPH, dyslipidemia, heart arrhythmia (history of this unclear) who came to [facility] due to reports of 3 days of hematochezia. Patient had a colonoscopy that showed internal hemorrhoids. Patient was found to be in A. fib with RVR was found to be hyperthyroid. Patient was seen by endocrinology and started on methimazole. Patient's metoprolol dose was also increased and eventually was started on Eliquis within the GI bleeding resolved. Patient had a CT of the chest that did show a pulmonary nodule, patient was seen by pulmonology and recommendation was for outpatient PET scan. Patient also had a questionable lesion in the liver and was felt that this can be worked up as an outpatient. Patient's heart rate was stabilized and patient was felt to be stable for discharge. On the day of discharge patient's vitals, labs and physical exam are stable and had no further acute complaints and his questions are answered. Home Meds Active Scripts Methimazole* (Methimazole*) 5 Mg Tablet, 20 MG PO QAM, #60 TAB Prov:GIANLUCA VILLA 11/03/16 Metoprolol Tartrate* (Lopressor*) 100 Mg Tablet, 150 MG PO BID, #60 TAB 1 Refill Prov:GIANLUCA VILLA 11/03/16 Apixaban* (Eliquis*) 5 Mg Tablet, 5 MG PO BID, #60 TAB 1 Refill Prov:GIANLUCA VILLA 11/03/16 Reported Medications Tamsulosin Hcl* (Tamsulosin Hcl*) 0.4 Mg Cap.er.24h, 0.4 MG PO HS, CAP 10/24/16 Lovastatin* (Altoprev*) 40 Mg Tab.sr.24h, 40 MG PO HS, TAB 10/24/16 Discontinued Reported Medications Amlodipine Besylate* (Amlodipine Besylate*) 2.5 Mg Tablet, 2.5 MG PO DAILY, #30 TAB 10/24/16 Metoprolol Succinate* (Toprol XL*) 25 Mg Tab.sr.24h, 25 MG PO DAILY, #30 TAB 10/24/16 Follow-up Plan Follow-up with PCP in 1-2 weeks, follow-up with endocrinology and pulmonology Primary Care Provider Fabby Morales Time spent on discharge: > 30 minutes GIANLUCA VILLA Nov 03, 2016 15:25
== END 2016-11-03 14:15 | disposition home or self-care (01) | DRG 377 ==
LOC: E/R 10:56 → MS4 12:02
PROVIDERS: ADMIT Internal Medicine; ATTEND Internal Medicine
PROC: 30233N1 Transfusion of Nonautologous Red Blood Cells into Peripheral Vein, Percutaneous Approach (ICD-10-PCS; 2016-10-24)
PROC: 0DJD8ZZ Inspection of Lower Intestinal Tract, Via Natural or Artificial Opening Endoscopic (ICD-10-PCS; principal; 2016-10-27 20:00)
DX: K92.1 Melena (principal); E05.01 Thyrotoxicosis with diffuse goiter with thyrotoxic crisis or storm; J96.01 Acute respiratory failure with hypoxia; D68.32 Hemorrhagic disorder due to extrinsic circulating anticoagulants; D62 Acute posthemorrhagic anemia; I48.2 Chronic atrial fibrillation; K64.8 Other hemorrhoids; E78.5 Hyperlipidemia, unspecified; I10 Essential (primary) hypertension; N40.0 Benign prostatic hyperplasia without lower urinary tract symptoms; T45.515A Adverse effect of anticoagulants, initial encounter; K76.9 Liver disease, unspecified; R91.8 Other nonspecific abnormal finding of lung field; Z87.891 Personal history of nicotine dependence
CPT/HCPCS: 36415; 36430; 71010; 71250; 76536; 80048; 80053; 80061; 82105; 82270; 82378; 83036; 83735; 83880; 84100; 84436; 84439; 84443; 84479; 84484; 85014; 85018; 85025; 85610; 85730; 86480; 86850; 86900; 86901; 86920; 93005; 93306; 94640; 94664; 96374; 96375; 96376; J1940; C9113; J2724; J3475; J7030; P9016

== ENCOUNTER 2016-12-01 09:03 | Inpatient (IN) | payer OTHER ==
[~2016-12-01] VITALS: Ht 160 cm; Wt 68.5 kg
[~2016-12-01 09:03] MED LIST: APIX5TAB PO; LOVA40TA64 PO; METH-493 PO; METO-407 PO; TAMS0.4C2 PO
[2016-12-01 10:14] LABS: BASOPHIL # 0.1 10^3/ul (0.0-0.1); EOSINOPHILS # 0.5 10^3/ul (0.0-0.5); EOSINOPHILS % 5.8 % (0.0-7.0); HEMATOCRIT 40.7 % (42.0-52.0); LYMPHOCYTES # 1.2 10^3/ul (0.8-2.9); LYMPHOCYTES % 14.8 % (15.0-51.0); MEAN CORPUSCULAR HEMOGLOBIN 31.5 pg (29.0-33.0); MEAN CORPUSCULAR HGB CONC 31.9 g/dl (32.0-37.0); MEAN CORPUSCULAR VOLUME 98.5 fl (82.0-101.0); MEAN PLATELET VOLUME 10.9 fl (7.4-10.4); MONOCYTE # 0.5 10^3/ul (0.3-0.9); MONOCYTES % 5.9 % (0.0-11.0); NEUTROPHILS % 72.1 % (39.0-77.0); PLATELET COUNT 174 10^3/UL (140-415); RED BLOOD COUNT 4.13 10^6/ul (4.70-6.10); WHITE BLOOD COUNT 8.2 10^3/ul (4.8-10.8)
[2016-12-01 10:19] LABS: ADD UMIC YES; UR ASCORBIC ACID NEGATIVE (NEGATIVE); UR BILIRUBIN (Dip) NEGATIVE (NEGATIVE); UR BLOOD (Dip) 1+ mg/dL (NEGATIVE); UR CLARITY SLIGHTLY CLOUDY (CLEAR); UR COLOR YELLOW (YELLOW); UR GLUCOSE (Dip) NEGATIVE (NEGATIVE); UR KETONES (Dip) NEGATIVE (NEGATIVE); UR LEUKOCYTE ESTERASE (Dip) NEGATIVE Leu/ul (NEGATIVE); UR MUCUS FEW /HPF (NONE SEEN); UR NITRITE (Dip) NEGATIVE (NEGATIVE); UR RBC 7 /HPF (0-5); UR SPECIFIC GRAVITY (Dip) 1.018 (1.003-1.030); UR TOTAL PROTEIN (Dip) 2+ mg/dl (NEGATIVE); UR UROBILINOGEN (Dip) 1+ mg/dL (NEGATIVE)
[2016-12-01 10:34] LABS: INR 1.71; PROTIME 20.2 Sec (12.2-14.2); PT RATIO 1.6
[2016-12-01 10:35] LABS: PARTIAL THROMBOPLASTIN TIME 37.7 Sec (25.0-35.0)
[2016-12-01 10:37] LABS: ALBUMIN 3.7 g/dl (3.3-4.9); ALBUMIN/GLOBULIN RATIO 1.15; BILIRUBIN,INDIRECT 0.9 mg/dl (0-1.1); BILIRUBIN,TOTAL 0.9 mg/dl (0.2-1.3); CALCIUM 9.7 mg/dl (8.4-10.2); CREATININE 1.27 mg/dl (0.61-1.24); POTASSIUM 4.4 mmol/L (3.5-5.1); TOTAL PROTEIN 6.9 g/dl (6.1-8.1)
--- NOTE | 2016-12-01 12:10 | ERA ---
ER Documentation Chief Complaint Date/Time DATE: 12/01/16 TIME: 11:59 Chief Complaint SENT BY JACKIE GAITAN, FOR ABDOMINAL DISTENTION X5 DAYS DENIES PAIN HPI My discharge plan this is a 81-year-old male with a past medical history of atrial fibrillation on Cardizem and Eliquis, hypertension on metoprolol, hyperlipidemia, BPH and hyperthyroidism on methimazole, no EtOH or illicit drug history who is presenting with abdominal distention, bloating and possible ascites that started 5 days ago. The patient does not endorse any abdominal pain. He does report increased constipation with only very small bowel movement yesterday morning. This is atypical for him. He did not notice any blood in his urine or his stool. He has had no problems with urination. In addition to swelling in his abdomen, he is also noticed some increased swelling in his lower extremities as well. The patient does not have any history of liver or kidney disease that he is aware of. He does not report a history of heart failure. He does not endorse a history of diabetes in him or his family. The patient endorses mild fatigue but no other symptoms other than what is noted above. The patient denies feeling sick at all recently. He denies fever or chills. He denies nausea or vomiting. He denies chest pain or trouble breathing. ROS All systems reviewed and are negative except as per history of present illness. Medications Home Meds Active Scripts Methimazole* (Methimazole*) 5 Mg Tablet, 20 MG PO QAM, #60 TAB Prov:GIANLUCA SARMIENTO 11/03/16 Metoprolol Tartrate* (Lopressor*) 100 Mg Tablet, 150 MG PO BID, #60 TAB 1 Refill Prov:GIANLUCA SARMIENTO 11/03/16 Apixaban* (Eliquis*) 5 Mg Tablet, 5 MG PO BID, #60 TAB 1 Refill Prov:GIANLUCA SARMIENTO 11/03/16 Reported Medications Tamsulosin Hcl* (Tamsulosin Hcl*) 0.4 Mg Cap.er.24h, 0.4 MG PO HS, CAP 10/24/16 Lovastatin* (Altoprev*) 40 Mg Tab.sr.24h, 40 MG PO HS, TAB 10/24/16 Allergies Allergies: Coded Allergies: No Known Allergy (Unverified , 12/01/16) PMhx/Soc History of Surgery: No Anesthesia Reaction: No Hx Neurological Disorder: No Hx Respiratory Disorders: No Hx Cardiac Disorders: Yes (HTN, HLD AFIB WITH RVR) Hx Psychiatric Problems: No Hx Miscellaneous Medical Probl: No Hx Alcohol Use: No Hx Substance Use: No Hx Tobacco Use: No Smoking Status: Former smoker FmHx Family History: No diabetes Physical Exam Vitals Vital Signs Date Time Temp Pulse Resp B/P Pulse Ox O2 Delivery O2 Flow Rate FiO2 12/01/16 09:06 98.6 139 20 146/99 98 Physical Exam Const: NAD, Well Developed, Well Nourished Head: Atraumatic Eyes: Normal Conjunctiva ENT: Normal External Ears, Nose and Mouth. Neck: Full range of motion. ~ No meningismus. Resp: Clear to auscultation bilaterally Cardio: Irregularly irregular rhythm, regular rate, no murmurs Abd: Soft, non tender, Distended, Fluid Shift. Normal bowel sounds Skin: No petechiae or rashes Back: No midline or flank tenderness Ext: No cyanosis. 1+ pitting edema to BLE Neur: Awake and alert, normal sensation, normal strength Psych: Normal Mood and Affect Result Diagram: 12/01/1657 12/01/1657 Results 24 hrs Laboratory Tests Test 12/01/16 09:50 12/01/16 09:57 12/01/16 12:10 Urine Color YELLOW Urine Clarity SLIGHTLY CLOUDY Urine pH 5.0 Urine Specific [place] 1.018 Urine Ketones NEGATIVEmg/dL Urine Nitrite NEGATIVEmg/dL Urine Bilirubin NEGATIVEmg/dL Urine Urobilinogen 1+mg/dL Urine Leukocyte Esterase NEGATIVELeu/ul Urine Microscopic RBC 7/HPF Urine Microscopic WBC 2/HPF Urine Mucus FEW/HPF Urine Hemoglobin 1+mg/dL Urine Glucose NEGATIVEmg/dL Urine Total Protein 2+mg/dl White Blood Count 8.210^3/ul Red Blood Count 4.1310^6/ul Hemoglobin 13.0g/dl Hematocrit 40.7% Mean Corpuscular Volume 98.5fl Mean Corpuscular Hemoglobin 31.5pg Mean Corpuscular Hemoglobin Concent 31.9g/dl Red Cell Distribution Width 18.0% Platelet Count 98230^3/UL Mean Platelet Volume 10.9fl Neutrophils % 72.1% Lymphocytes % 14.8% Monocytes % 5.9% Eosinophils % 5.8% Basophils % 1.0% Nucleated Red Blood Cells % 0.0/100WBC Neutrophils # (Manual) 5.910^3/ul Lymphocytes # 1.210^3/ul Monocytes # 0.510^3/ul Eosinophils # 0.510^3/ul Basophils # 0.110^3/ul Nucleated Red Blood Cells # 0.010^3/ul Prothrombin Time 20.2Sec Prothrombin Time Ratio 1.6 INR International Normalized Ratio 1.71 Activated Partial Thromboplast Time 37.7Sec Sodium Level 143mmol/L Potassium Level 4.4mmol/L Chloride Level 109mmol/L Carbon Dioxide Level 23mmol/L Anion Gap 15 Blood Urea Nitrogen 22mg/dl Creatinine 1.27mg/dl Glucose Level 105mg/dl Calcium Level 9.7mg/dl Total Bilirubin 0.9mg/dl Direct Bilirubin 0.00mg/dl Indirect Bilirubin 0.9mg/dl Aspartate Amino Transf (AST/SGOT) 21IU/L Alanine Aminotransferase (ALT/SGPT) 24IU/L Alkaline Phosphatase 104IU/L Total Protein 6.9g/dl Albumin 3.7g/dl Globulin 3.20g/dl Albumin/Globulin Ratio 1.15 Lipase 153U/L Troponin I < 0.012ng/ml B-Type Natriuretic Peptide 6020PG/ML Current Medications Medications (Trade) Dose Ordered Sig/[place] Route PRN Reason Start Time Stop Time Status Last Admin Dose Admin IV Flush 10 ml 10 ml STK-MED ONCE .ROUTE 12/01/16 14:28 12/01/16 14:29 DC 12/01/16 15:22 Sodium Chloride (NS) 100 ml @ ud STK-MED ONCE .ROUTE 12/01/16 14:28 12/01/16 14:29 DC 12/01/16 15:22 Iodixanol (Visipaque Locm) 100 ml STK-MED ONCE .ROUTE 12/01/16 14:28 12/01/16 14:29 DC 12/01/16 15:23 Ondansetron HCl (Zofran Inj) 4 mg BRIDGE ORDER PRN IV NAUSEA AND/OR VOMITING 12/01/16 15:00 12/02/16 14:59 Acetaminophen (Tylenol Tab) 650 mg ER BRIDGE PRN PO MILD PAIN/FEVER 12/01/16 15:00 12/02/16 14:59 Furosemide (Lasix) 20 mg ONCE ONCE IV 12/01/16 15:00 12/01/16 15:01 DC Procedures/MDM The patient's presenting with new onset abdominal distention and lower extremity edema. The patient does endorse mild constipation but no other symptoms. I do suspect ascites in his abdomen, but the etiology is not yet known. The patient could have liver or renal dysfunction. There is also a possibility of heart failure. These will be worked up. The patient does not endorse any pain. He is afebrile I do not suspect an infection. I do not suspect SBP. The patient's blood work was obtained and reviewed. CBC shows no leukocytosis or left shift. He is afebrile and I do not suspect a systemic infection. The patient does have mild anemia that does not need to be emergently treated. The patient's BMP does demonstrate an elevated BUN and creatinine. This is above his baseline, and I am concerned about RICA. The patient's urinalysis does show signs of nephropathy as well. The patient's LFTs are unremarkable. I do not see any evidence of liver dysfunction as the cause of his abdominal distention. EKG read by me: Rate/Rhythm: Irregularly irregular rhythm indicating atrial fibrillation with a normal rate of 92 Intervals: Normal [place]: Normal Impression: Nonspecific ST changes but no evidence of acute ischemia or arrhythmia Given the new onset of symptoms, a CT of the abdomen and pelvis was also performed. It revealed the following: IMPRESSION: Multiple micronodules in the both lung bases, measuring up to 0.9 cm , likely metastatic. Moderate ascitic fluid in the abdomen and pelvis. Innumerous small stones in the gallbladder. Normal gallbladder wall. Scattered tiny cystic lesions throughout the liver, likely benign. Somewhat small kidneys bilaterally. Mild cardiomegaly. Mild right pleural effusion. Diffuse anasarca. Radioactive seed implants in the prostate. Electronically viewed and signed by .Tal Villa MD, MD on 12/01/2016 13:49 Upon review of the medical record, the patient was admitted to the hospital approximately 1 month ago for hematochezia. He is found to have internal hemorrhoids on a colonoscopy. While in the hospital, the patient had a CAT scan of the chest that was concerning for metastatic lung disease. Pulmonology was consulted to evaluate the patient at the time, and an outpatient PET scan was recommended. The patient unfortunately did not have this completed. I am concerned of the metastatic process causing anasarca. The patient also appears to have a component of heart failure. Lasix will be given to the patient to help with his third spacing. The patient will require admission to the hospital for evaluation of heart failure as well as evaluation of this metastatic disease process. The patient will be admitted to the panel hospitalist team. He was accepted by Dr. Sarmiento at 2:30 PM on December 01, 2016 Departure Diagnosis: Primary Impression: Metastatic disease Additional Impressions: CHF (congestive heart failure) Qualified Code: I50.9 - Congestive heart failure, unspecified congestive heart failure chronicity, unspecified congestive heart failure type Anasarca Lower extremity edema Abdominal distension Condition: BONI Song MD Dec 01, 2016 12:09
--- NOTE | 2016-12-01 13:49 | RADRPT ---
PROCEDURE: CT abdomen and pelvis without IV contrast. CLINICAL INDICATION: Abdomen pain. TECHNIQUE: CT scan of the abdomen and pelvis was performed on a [address] scanner. The patient is scanned without IV contrast. Coronal and sagittal reformatted images were obtained from the axia l source images. Images were reviewed on a high-resolution PACS workstation. Total radiation dose: Total CTDIvol: 13.6 mGy. Total DLP: 762 mGy-cm. One or more of the following dose reduction techniques were used: automated exposure control, adjustment of the mA and/or kV acco rding to patient size, or use of iterative reconstruction technique. COMPARISON: None available. FINDINGS: CT abdomen: There is mild right pleural effusion. There are multiple micronodules in the both lung bases, measur ing up to 0.9 cm. The heart is somewhat enlarged without pericardial thickening or effusion. There is moderate ascitic fluid in the abdomen and pelvis. There are scattered tiny cystic lesions t hroughout the liver. The liver is normal in size and density without focal hepatic mass or biliary d ilatation. The spleen is normal in size. The stomach is partially collapsed but is grossly unremar kable. The pancreas as visualized is normal. There are innumerous small stones in the gallbladder and ther e is no evidence of biliary dilatation. The adrenal glands are symmetrical and normal. The kidneys are somewhat small bilaterally. No za l obstructive uropathy or mass lesion is seen.. The aorta is normal in caliber with calcified atherosclerosis. There is no retroperitoneal lymphade nopathy. The jg hepatis region is clear. The bowel and mesentery, as visualized, are equally un remarkable. There is diffuse anasarca. CT pelvis: There is no indication of acute appendicitis in the right lower quadrant. The small bowel loops sit uated within the pelvis are unremarkable. The pelvic organs are normal. The pelvic sidewalls and i nguinal regions are clear. No mass, lymphadenopathy is seen. No acute inflammation seen. There ar e radioactive seed implants in the prostate. The urinary bladder is normal. The surrounding osseous structures are unremarkable. No osteolytic or osteoblastic lesion is detect ed. IMPRESSION: 1. Multiple micronodules in the both lung bases, measuring up to 0.9 cm, likely metastatic. 2. Moderate ascitic fluid in the abdomen and pelvis. 3. Innumerous small stones in the gallbladder. Normal gallbladder wall. 4. Scattered tiny cystic lesions throughout the liver, likely benign. 5. Somewhat small kidneys bilaterally. 6. Mild cardiomegaly. 7. Mild right pleural effusion. 8. Diffuse anasarca. 9. Radioactive seed implants in the prostate. RPTAT: GG .Tal Villa MD, Date Time Electronically viewed and signed by .Tal Villa MD, on 12/01/2016 13:49 .Y/
[2016-12-01 13:51] LABS: B-TYPE NATRIURETIC PEPTIDE 6020 PG/ML (0-450)
[2016-12-01 13:53] LABS: TROPONIN-I < 0.012 ng/ml (0.00-0.12)
[2016-12-01] MEDS ORDERED: IODIXANOL LOCM 100 ML BTL ONE (14:28)
[2016-12-01] MEDS ORDERED: SOD CHLORIDE 0.9% 100 ML ONE (14:28)
[2016-12-01] MEDS ORDERED: FUROSEMIDE 20 MG INJ IV ONE (15:00)
[2016-12-01] MEDS ORDERED: ONDANSETRON 4 MG INJ IV PRN ×2 (15:00→18:30)
[2016-12-01] MEDS ORDERED: ACETAMINOPHEN 325 MG TAB PO PRN ×2 (15:00→18:30)
[2016-12-01 15:11] VITALS: Ht 160 cm; Wt 68.5 kg
[2016-12-01 16:48] VITALS: BP 146/116; PULSE 109; RESP 18
--- NOTE | 2016-12-01 18:26 | HP ---
Date/Time of Note Date/Time of Note DATE: 12/01/16 TIME: 18:16 Assessment/Plan VTE Prophylaxis VTE Prophylaxis Intervention: ambulation Assessment/Plan Chief Complaint/Hosp Course 1. Anasarca with moderate ascites noted on CT abdomen Ultrasound paracentesis with fluid analysis to evaluate for malignancy CT chest with IV contrast to evaluate for lung cancer Check PSA and CA-19-9 2. Hyperthyroidism with history of A. fib with RVR-rate stable Reconsult Endocrinology Check thyroid panel Continue home methimazole 3. History of lower GI bleed secondary to internal hemorrhoids-stable 4. Liver lesions-appears benign on CT AFP and CEA during last hospitalization was normal 5. Acute kidney injury secondary to third spacing Consider nephrology consultation in a.m. if creatinine still elevated Prophylaxis: Ambulation Problems: HPI/ROS Admit Date/Time Admit Date/Time Dec 01, 2016 at 14:41 Hx of Present Illness Patient is a 81-year-old male with history of hyperthyroidism scheduled for likely ablation next month, A. fib, internal hemorrhoids as well as lung lesions the plan for outpatient PET scan. Patient presents with worsening abdominal distention for the past 5 days. In the ER CT abdomen showed pulmonary nodules as well as moderate ascites. Patient has no history of ascites in the past, he denies any change in his bowel habits, he does endorse shortness of breath with activity. Has no other complaints at this time. ROS Constitutional: improved, no complaints Eyes: no complaints ENT: no complaints Respiratory: shortness of breath (With exertion) Cardiovascular: no complaints Gastrointestinal: other (Abdominal swelling) Genitourinary: no complaints Musculoskeletal: no complaints Skin: no complaints Neurologic: no complaints Endocrine: no complaints Lymphatic: no complaints Psychological: nl mood/affect, no complaints Immunologic: no complaints PMH/Family/Social Past Medical History Hypothyroidism with A. fib, internal hemorrhoids, lung lesions, hypertension, BPH Family History Significant Family History: no pertinent family hx Social History Alcohol Use: rarely Smoking Status: Former smoker Drug Use: none Exam/Review of Systems Vital Signs Vitals Vital Signs Date Time Temp Pulse Resp B/P Pulse Ox O2 Delivery O2 Flow Rate FiO2 12/01/16 16:48 98.4 109 18 146/116 96 Room Air Exam Constitutional: alert, oriented Head: normocephalic Respiratory: clear to auscultation Cardiovascular: regular rate and rhythm Gastrointestinal: distended, soft, tender Extremities: edema (2+) Labs Result Diagram: 12/01/16 0957 12/01/16 0957 GIANLUCA VILLA Dec 01, 2016 18:26
[2016-12-01] MEDS ORDERED: ZOLPIDEM 5 MG TAB PO PRN (18:30)
[2016-12-01] MEDS ORDERED: morphine 2 MG INJ IV PRN (18:30)
[2016-12-01] MEDS ORDERED: HYDROCODONE/APAP (5/325) TAB PO PRN (18:30)
[2016-12-01 19:27] VITALS: BP 171/101; RESP 19
[2016-12-01] MEDS: TAMSULOSIN (SR) 0.4 MG CAP PO SCH (20:31)
[2016-12-01] MEDS: ATORVASTATIN 10 MG TAB PO SCH (20:31)
[2016-12-01] MEDS: METOPROLOL 100 MG TAB PO SCH (20:32)
[2016-12-01 21:53] VITALS: BP 136/95; RESP 18
[2016-12-02 02:00] VITALS: BP 144/85; RESP 18
[2016-12-02 05:52] LABS: BASOPHIL # 0.1 10^3/ul (0.0-0.1); BASOPHILS % 1.2 % (0.0-2.0); EOSINOPHILS # 1.2 10^3/ul (0.0-0.5); EOSINOPHILS % 14.1 % (0.0-7.0); HEMATOCRIT 39.3 % (42.0-52.0); HEMOGLOBIN 12.4 g/dl (14.0-18.0); LYMPHOCYTES % 24.3 % (15.0-51.0); MEAN CORPUSCULAR HEMOGLOBIN 30.2 pg (29.0-33.0); MEAN CORPUSCULAR HGB CONC 31.6 g/dl (32.0-37.0); MEAN CORPUSCULAR VOLUME 95.6 fl (82.0-101.0); MEAN PLATELET VOLUME 10.4 fl (7.4-10.4); MONOCYTE # 0.6 10^3/ul (0.3-0.9); MONOCYTES % 7.7 % (0.0-11.0); NEUTROPHILS % 52.6 % (39.0-77.0); PLATELET COUNT 159 10^3/UL (140-415); RED BLOOD COUNT 4.11 10^6/ul (4.70-6.10); RED CELL DISTRIBUTION WIDTH 17.7 % (11.5-14.5); WHITE BLOOD COUNT 8.2 10^3/ul (4.8-10.8)
[2016-12-02 06:10] LABS: ALBUMIN 3.2 g/dl (3.3-4.9); ALBUMIN/GLOBULIN RATIO 1.14; CALCIUM 9.3 mg/dl (8.4-10.2); CREATININE 1.06 mg/dl (0.61-1.24); MAGNESIUM 1.9 mg/dl (1.7-2.5); PHOSPHORUS 3.8 mg/dl (2.5-4.9); POTASSIUM 3.9 mmol/L (3.5-5.1)
[2016-12-02 06:23] LABS: T3 UPTAKE 37.7 % (23.5-40.5)
[2016-12-02 07:23] LABS: CANCER ANTIGEN 19-9 32.8 U/ml (0.0-37.0)
[2016-12-02 07:49] VITALS: BP 153/90; RESP 18
[2016-12-02] MEDS: METOPROLOL 100 MG TAB PO SCH ×2 (08:57→20:38)
[2016-12-02] MEDS ORDERED: METHIMAZOLE 5 MG TAB PO SCH (09:00)
[2016-12-02] MEDS: DOCUSATE SODIUM 100 MG CAP PO PRN (09:12)
--- NOTE | 2016-12-02 13:28 | CONS ---
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 Doing an FNA biopsy in a hot hyperfunctioning nodule be read out as follicular neoplasm which will not be useful information but would force us into the situation sending him to a surgical procedure. The plan was to get him calm down and then do nuclear medicine thyroid uptake and scanning. Any cold nodules will be biopsied and then he would be treated radioactive iodine ablation. Given that I have in the hospital go ahead and do the nuclear medicine thyroid scan uptake now can schedule ultrasound-guided biopsy of any hypofunctioning nodules (2) Atrial fibrillation with rapid ventricular response Status: Chronic Comment: As per primary team. Rate control (3) Multiple lung nodules on CT Status: Acute Comment: As per primary team. Still concerned given his prior history of a cancer the could have other cancers. While theoretically possible this may represent thyroid malignancy that is less likely Consultation Date/Type/Reason Admit Date/Time Dec 01, 2016 at 14:41 Date of Consultation: Dec 02, 2016 Type of Consultation: Endocrinology Reason for Consultation Hyperthyroidism, multinodular goiter, A. fib with rapid ventricular response, multiple pulmonary nodules, new onset ascites Referring Provider: GIANLUCA VILLA of Present Illness 81-year-old Stateless gentleman who was admitted to this facility for GI bleed in over anticoagulation around October 24 of this year. Is found to have significant thyrotoxicosis with his rapid atrial fibrillation. In addition he had multiple pulmonary nodules that were being worked up. Is come back in. He has been steadily taking his methimazole and multiple other symptoms of hyperthyroidism have improved. Please note that his prior thyroid nodules were not biopsied at the time of his admission as he was hyperthyroid and we did not have delineation about which of the nodules were hyperfunctioning. FNA biopsy of hyperfunctioning nodule will be read out is not as consistent with neoplasm and forceps to take the patient to surgery Constitutional: improved Eyes: no complaints ENT: no complaints Respiratory: shortness of breath (With exertion) Cardiovascular: palpitations Gastrointestinal: other (Abdominal swelling) Genitourinary: no complaints Musculoskeletal: no complaints Skin: no complaints Neurologic: no complaints Lymphatic: no complaints Psychological: nl mood/affect, no complaints Immunologic: no complaints Past Medical History 1) hyperthyroid multinodular goiter, 2) cholelithiasis, 3) multiple pulmonary nodules, 4) fibrillation with rapid ventricular response with biatrial enlargement on echo, 5) history of varicrlla.,6) prostate cancer-status post radium seed implants Past Surgical History Past Surgical Hx: noncontributory Family History Significant Family History: no pertinent family hx Social History Alcohol Use: rarely Smoking Status: Former smoker Drug Use: none Exam/Review of Systems Vital Signs Vitals Vital Signs Date Time Temp Pulse Resp B/P Pulse Ox O2 Delivery O2 Flow Rate FiO2 12/02/16 07:49 97.5 67 18 153/90 100 12/01/16 16:48 Room Air Exam Pleasant Stateless gentleman sitting up in bed. Constitutional: alert, oriented Eyes: EOMI, nl conjunctiva, nl lids, nl sclera ENMT: mucosa pink and moist, nl external ears & nose, nl lips & teeth, nl nasal mucosa & septum Neck: non-tender, other (Possible enlarged thyroid gland without tenderness with multiple nodules), supple Respiratory: clear to auscultation, normal air movement Cardiovascular: irregular rhythm, nl pulses Gastrointestinal: nl liver, spleen, non-tender, soft Results Result Diagram: 12/02/1652712/02/1628 Results 24 hrs Laboratory Tests Test 12/02/16 05:28 White Blood Count 8.2 Red Blood Count 4.11 L Hemoglobin 12.4 L Hematocrit 39.3 L Mean Corpuscular Volume 95.6 Mean Corpuscular Hemoglobin 30.2 Mean Corpuscular Hemoglobin Concent 31.6 L Red Cell Distribution Width 17.7 H Platelet Count 159 Mean Platelet Volume 10.4 Neutrophils % 52.6 Lymphocytes % 24.3 Monocytes % 7.7 Eosinophils % 14.1 H Basophils % 1.2 Nucleated Red Blood Cells % 0.0 Neutrophils # (Manual) 4.3 Lymphocytes # 2.0 Monocytes # 0.6 Eosinophils # 1.2 H Basophils # 0.1 Nucleated Red Blood Cells # 0.0 Sodium Level 140 Potassium Level 3.9 Chloride Level 109 Carbon Dioxide Level 23 Anion Gap 12 Blood Urea Nitrogen 23 H Creatinine 1.06 Glucose Level 76 Calcium Level 9.3 Phosphorus Level 3.8 Magnesium Level 1.9 Total Bilirubin 1.0 Direct Bilirubin 0.00 Indirect Bilirubin 1.0 Aspartate Amino Transf (AST/SGOT) 19 Alanine Aminotransferase (ALT/SGPT) 28 Alkaline Phosphatase 94 Total Protein 6.0 L Albumin 3.2 L Globulin 2.80 Albumin/Globulin Ratio 1.14 CA 19-9 Antigen 32.8 Free Thyroxine Index 1.66 Thyroxine (T4) 4.4 L Triiodothyronine (T3) Uptake 37.7 Medications Medications Current Medications Ondansetron HCl (Zofran Inj) 4 mg Q6H PRN IV NAUSEA AND/OR VOMITING; Start 02/06 at 18:30 Acetaminophen (Tylenol Tab) 650 mg Q6H PRN PO PAIN LEVEL 1-3 OR FEVER; Start at 18:30 Acetaminophen/ Hydrocodone Bitart ([place] (5/325)) 1 tab Q6H PRN PO MODERATE PAIN LEVEL 4-6; Start 12/01/16 at 18:30 Morphine Sulfate (morphine) 2 mg Q4H PRN IV SEVERE PAIN LEVEL 7-10; Start 12/01 at 18:30 Docusate Sodium (Colace) 100 mg Q12H PRN PO CONSTIPATION Last administered on 09:12; Admin Dose 100 MG; Start 12/01/16 at 18:30 Zolpidem Tartrate (Ambien) 5 mg QHS PRN PO SLEEP; Start 12/01/16 at 18:30 Methimazole (Tapazole) 20 mg QAM PO Last administered on 12/02/16 08:58; Admin Dose 20 MG; Start 12/02/16 at 09:00 Metoprolol Tartrate (Lopressor) 150 mg BID PO Last administered on 12/02/16 08 :57; Admin Dose 150 MG; Start 12/01/16 at 21:00 Tamsulosin HCl (Flomax) 0.4 mg HS PO Last administered on 12/01/16 20:31; Admin Dose 0.4 MG; Start 12/01/16 at 21:00 Atorvastatin Calcium (Lipitor) 10 mg DAILY@21 PO Last administered on 20:31; Admin Dose 10 MG; Start 12/01/16 at 21:00 CHRISTIE CLARKE MD Dec 02, 2016 13:27
[2016-12-02] MEDS ORDERED: LIDOCAINE 1% (MPF) 5 ML VIAL ONE (14:54)
--- NOTE | 2016-12-02 14:57 | PN ---
Date/Time of Note Date/Time of Note DATE: 12/02/16 TIME: 14:53 Assessment/Plan VTE Prophylaxis VTE Prophylaxis Intervention: ambulation Lines/Catheters [facility] Saline Lock Assessment/Plan Chief Complaint/Hosp Course 1. Anasarca with moderate ascites noted on CT abdomen Ultrasound paracentesis with fluid analysis to evaluate for malignancy CT chest with IV contrast to evaluate for lung cancer Follow-up on PSA, CA-19-9 is normal 2. Hyperthyroidism with history of A. fib with RVR-rate stable Endocrinology consultation appreciated, plan is for nuclear thyroid uptake scan Continue home methimazole 3. History of lower GI bleed secondary to internal hemorrhoids-stable 4. Liver lesions-appears benign on CT AFP and CEA during last hospitalization was normal 5. Acute kidney injury secondary to third spacing-resolved Prophylaxis: Ambulation Problems: Subjective 24 Hr Interval Summary Constitutional: no complaints Exam/Review of Systems Vital Signs Vitals Vital Signs Date Time Temp Pulse Resp B/P Pulse Ox O2 Delivery O2 Flow Rate FiO2 12/02/16 07:49 97.5 67 18 153/90 100 12/01/16 16:48 Room Air Exam Constitutional: alert, oriented Respiratory: clear to auscultation Cardiovascular: regular rate and rhythm Gastrointestinal: distended, non-tender, soft Musculoskeletal: nl extremities to inspection Results Result Diagram: 12/02/1628 12/02/1628 Results 24 hrs Laboratory Tests Test 12/02/16 05:28 White Blood Count 8.2 Red Blood Count 4.11 L Hemoglobin 12.4 L Hematocrit 39.3 L Mean Corpuscular Volume 95.6 Mean Corpuscular Hemoglobin 30.2 Mean Corpuscular Hemoglobin Concent 31.6 L Red Cell Distribution Width 17.7 H Platelet Count 159 Mean Platelet Volume 10.4 Neutrophils % 52.6 Lymphocytes % 24.3 Monocytes % 7.7 Eosinophils % 14.1 H Basophils % 1.2 Nucleated Red Blood Cells % 0.0 Neutrophils # (Manual) 4.3 Lymphocytes # 2.0 Monocytes # 0.6 Eosinophils # 1.2 H Basophils # 0.1 Nucleated Red Blood Cells # 0.0 Sodium Level 140 Potassium Level 3.9 Chloride Level 109 Carbon Dioxide Level 23 Anion Gap 12 Blood Urea Nitrogen 23 H Creatinine 1.06 Glucose Level 76 Calcium Level 9.3 Phosphorus Level 3.8 Magnesium Level 1.9 Total Bilirubin 1.0 Direct Bilirubin 0.00 Indirect Bilirubin 1.0 Aspartate Amino Transf (AST/SGOT) 19 Alanine Aminotransferase (ALT/SGPT) 28 Alkaline Phosphatase 94 Total Protein 6.0 L Albumin 3.2 L Globulin 2.80 Albumin/Globulin Ratio 1.14 CA 19-9 Antigen 32.8 Free Thyroxine Index 1.66 Thyroxine (T4) 4.4 L Triiodothyronine (T3) Uptake 37.7 Medications Medications Current Medications Ondansetron HCl (Zofran Inj) 4 mg Q6H PRN IV NAUSEA AND/OR VOMITING; Start 02/06 at 18:30 Acetaminophen (Tylenol Tab) 650 mg Q6H PRN PO PAIN LEVEL 1-3 OR FEVER; Start at 18:30 Acetaminophen/ Hydrocodone Bitart ([place] (5/325)) 1 tab Q6H PRN PO MODERATE PAIN LEVEL 4-6; Start 12/01/16 at 18:30 Morphine Sulfate (morphine) 2 mg Q4H PRN IV SEVERE PAIN LEVEL 7-10; Start 12/01 at 18:30 Docusate Sodium (Colace) 100 mg Q12H PRN PO CONSTIPATION Last administered on 09:12; Admin Dose 100 MG; Start 12/01/16 at 18:30 Zolpidem Tartrate (Ambien) 5 mg QHS PRN PO SLEEP; Start 12/01/16 at 18:30 Methimazole (Tapazole) 20 mg QAM PO Last administered on 12/02/16 08:58; Admin Dose 20 MG; Start 12/02/16 at 09:00; Status Future Hold Metoprolol Tartrate (Lopressor) 150 mg BID PO Last administered on 12/02/16 08 :57; Admin Dose 150 MG; Start 12/01/16 at 21:00 Tamsulosin HCl (Flomax) 0.4 mg HS PO Last administered on 12/01/16 20:31; Admin Dose 0.4 MG; Start 12/01/16 at 21:00 Atorvastatin Calcium (Lipitor) 10 mg DAILY@21 PO Last administered on 20:31; Admin Dose 10 MG; Start 12/01/16 at 21:00 GIANLUCA VILLA Dec 02, 2016 14:57
--- NOTE | 2016-12-02 15:06 | RADRPT ---
PROCEDURE: Ultrasound guided paracentesis. CLINICAL INDICATION: Ascites and shortness of breath. COMPARISON: No prior studies are available for comparison. TECHNIQUE: The risks, benefits, and alternatives were explained to the patient and/or the patient's family, inc luding but not limited to bleeding, infection, pain, visceral or vascular damage, shock, and . The patient and/or the patient's family understood the risks and the alternatives and wished to pro ceed with the procedure. Informed written consent was obtained. A procedural time out was performed . The patient's name, date of , and procedure to be performed were verified. Utilizing ultrasound guidance, optimal location for entry to the peritoneal cavity was ascertained. The overlying skin was prepped and draped in the usual sterile fashion. Approximately 10 ml of 1% Xylocaine was injected locally for pain control. Using ultrasound guidance, an 8 Japanese catheter wa s introduced into the peritoneal cavity in the right upper quadrant with difficulty; only a small am ount of fluid could be aspirated. FINDINGS: Initial images demonstrate ascites. Approximately 5 ml of serous fluid was aspirated and sent for l aboratory analysis. The patient tolerated the procedure well without complication. IMPRESSION: 1. Only minimal fluid aspirated for paracentesis. RPTAT: QQ .Joaquin uHerta MD, MD Date Time Electronically viewed and signed by .Joaquin Huerta MD, on 12/02/2016 15:06 .R/
[2016-12-02 16:18] LABS: FLD MN% 76.8 %; FLD PMN% 23.2 %; FLD RBC 115 /uL; FLD WBC 758 /cmm
[2016-12-02 16:30] LABS: FLUID AMYLASE 31 U/L; FLUID LD 976 U/L; FLUID TOTAL PROTEIN 3.5 g/dl; FLUID TYPE PARACENTESIS FLUID
[2016-12-02 16:57] LABS: FLD CLARITY CLOUDY; FLD COLOR RED; FLD TYPE PARACENTHESIS
[2016-12-02 17:22] LABS: FREE T3 2.03 pg/ml (2.77-5.27)
[2016-12-02 17:44] LABS: THYROID STIMULATING HORMONE < 0.015 MIU/L (0.465-4.680)
[2016-12-02 20:00] VITALS: BP 141/85; RESP 20
[2016-12-02] MEDS: ATORVASTATIN 10 MG TAB PO SCH (20:37)
[2016-12-02] MEDS: TAMSULOSIN (SR) 0.4 MG CAP PO SCH (20:37)
[2016-12-02] MEDS: NACL 0.9% 3 ML SYG IV SCH (20:40)
[2016-12-03 02:00] VITALS: BP 134/86; RESP 20
[2016-12-03] MEDS: DOCUSATE SODIUM 100 MG CAP PO PRN (06:06)
[2016-12-03 06:54] LABS: CALCIUM 8.5 mg/dl (8.4-10.2); CREATININE 1.06 mg/dl (0.61-1.24); POTASSIUM 3.9 mmol/L (3.5-5.1)
[2016-12-03 07:45] VITALS: BP 132/81; RESP 16
[2016-12-03] MEDS: METOPROLOL 100 MG TAB PO SCH ×2 (08:24→20:47)
--- NOTE | 2016-12-03 08:42 | CONS ---
Date/Time of Note Date/Time of Note DATE: 12/03/16 TIME: 08:37 Assessment/Plan Assessment/Plan Chief Complaint/Hosp Course 81-year-old [place] gentleman who was admitted to this facility for GI bleed in over anticoagulation around October 24 of this year. Is found to have significant thyrotoxicosis with his rapid atrial fibrillation. In addition he had multiple pulmonary nodules that were being worked up. Is come back in. He has been steadily taking his methimazole and multiple other symptoms of hyperthyroidism have improved. Please note that his prior thyroid nodules were not biopsied at the time of his admission as he was hyperthyroid and we did not have delineation about which of the nodules were hyperfunctioning. 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 This means that the nuclear medicine thyroid scan and uptake will not show anything because the iodine load from the IV contrast for the CT scan. It also means from a therapeutic standpoint I cannot use radioactive iodine for the next 8 weeks. I will adjust his methimazole dosage and he will be maintained on that. Some leaves the question about whether or not we should go blindly after 1 of the nodules and the needle biopsy. While is against my better judgment given the my hands are now tied I will go ahead and order this test assuming that we do not get any other information from any of the other evaluation for his multiple nodules (2) Multiple lung nodules on CT Status: Acute Comment: As per primary care team and pulmonology (3) Metastatic disease Status: Acute Comment: There is a question about this. Pending at this time as the results of his paracentesis Consultation Date/Type/Reason Admit Date/Time Dec 01, 2016 at 14:41 Initial Consult Date 12/02/16 Type of Consultation: Endocrinology Reason for Consultation Hyperthyroidism with multinodular goiter Referring Provider: GIANLUCA VILLA 24 HR Interval Summary Free Text/Dictation Patient reports no changes. Please note he now informs me that after my visit with him he was taken for CT scan of the chest which was performed with IV contrast Exam/Review of Systems Vital Signs Vitals Vital Signs Date Time Temp Pulse Resp B/P Pulse Ox O2 Delivery O2 Flow Rate FiO2 12/03/16 07:45 97.4 92 16 132/81 98 12/01/16 16:48 Room Air Intake and Output 12/02/16 12/02/16 12/03/16 15:00 23:00 07:00 Intake Total 320 ml Balance 320 ml Exam No changes Results Result Diagram: 12/02/16 0528 12/03/16 0547 Results 24 hrs Laboratory Tests Test 12/02/16 14:15 12/02/16 16:29 12/03/16 05:47 Body Fluid Type PARACENTESIS FLUID Body Fluid Volume 3.0 Body Fluid Color RED Body Fluid Appearance CLOUDY Body Fluid WBC 758 Body Fluid RBC (Auto) 115 Body Fluid Polynuclear WBCs (%) 23.2 Body Fluid Mononuclear Cells % Auto 76.8 Body Fluid Total Protein 3.5 Body Fluid Lactate Dehydrogenase 976 Body Fluid Amylase 31 Thyroid Stimulating Hormone (TSH) < 0.015 L Free Thyroxine 0.59 L Free Triiodothyronine (T3) pg/mL 2.03 L Sodium Level 139 Potassium Level 3.9 Chloride Level 110 Carbon Dioxide Level 24 Anion Gap 9 Blood Urea Nitrogen 20 Creatinine 1.06 Glucose Level 91 Calcium Level 8.5 Medications Medications Current Medications Ondansetron HCl (Zofran Inj) 4 mg Q6H PRN IV NAUSEA AND/OR VOMITING; Start 02/06 at 18:30 Acetaminophen (Tylenol Tab) 650 mg Q6H PRN PO PAIN LEVEL 1-3 OR FEVER; Start at 18:30 Acetaminophen/ Hydrocodone Bitart ([place] (5/325)) 1 tab Q6H PRN PO MODERATE PAIN LEVEL 4-6; Start 12/01/16 at 18:30 Morphine Sulfate (morphine) 2 mg Q4H PRN IV SEVERE PAIN LEVEL 7-10; Start 12/01 at 18:30 Docusate Sodium (Colace) 100 mg Q12H PRN PO CONSTIPATION Last administered on 06:06; Admin Dose 100 MG; Start 12/01/16 at 18:30 Zolpidem Tartrate (Ambien) 5 mg QHS PRN PO SLEEP; Start 12/01/16 at 18:30 Methimazole (Tapazole) 20 mg QAM PO Last administered on 12/02/16 08:58; Admin Dose 20 MG; Start 12/02/16 at 09:00; Status Future Hold Metoprolol Tartrate (Lopressor) 150 mg BID PO Last administered on 12/03/16 08 :24; Admin Dose 150 MG; Start 12/01/16 at 21:00 Tamsulosin HCl (Flomax) 0.4 mg HS PO Last administered on 12/02/16 20:37; Admin Dose 0.4 MG; Start 12/01/16 at 21:00 Atorvastatin Calcium (Lipitor) 10 mg DAILY@21 PO Last administered on 20:37; Admin Dose 10 MG; Start 12/01/16 at 21:00 CHRISTIE CLARKE MD Dec 03, 2016 08:42
[2016-12-03] MEDS: METHIMAZOLE 5 MG TAB PO SCH (09:56)
--- NOTE | 2016-12-03 10:33 | CONS ---
DATE OF ADMISSION: 12/01/2016 DATE OF CONSULTATION: 12/03/2016 REASON FOR CONSULTATION: Abnormal chest CT. Thank you, Dr. Sarmiento, for this consultation. HISTORY OF PRESENT ILLNESS: This is a 31-year-old gentleman with a history of hypothyroidism, pending ablation, found to have significant pulmonary nodules on recent CT of the chest concerning for likely metastatic disease, was pending outpatient PET scan. Comes in again with abdominal distention over 5 days. Mild nausea and vomiting but no fever, no chills. No hemoptysis, hematemesis. Denies any shortness of breath. Moderate ascites was noted and paracentesis scheduled for workup of malignancy. In addition PSA in CA-19-9 have been requested. A chest CT shows multiple well-circumscribed pulmonary nodules, which appear to be consistent with possible metastatic disease. PAST MEDICAL HISTORY: 1. Hypothyroidism. 2. 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 3. Atrial fibrillation with rapid ventricular response. 4. Ascites. MEDICATION: Per chart. ALLERGIES: NONE. SOCIAL HISTORY: He is a ex-smoker. No alcohol. No history of drug use. FAMILY HISTORY: Noncontributory. REVIEW OF SYSTEMS: A 12-point review of systems negative other than that mentioned above. PHYSICAL EXAMINATION: GENERAL: On examination, elderly-appearing gentleman, comfortable at rest. No acute distress. VITAL SIGNS: Temperature 98, pulse is 132/81, O2 sat 96 percent on FiO2 of room air. NECK: Supple. No JVD, lymphadenopathy. CARDIAC: S1, S2. No added sounds or murmurs. CHEST: Diminished air entry bilaterally. ABDOMEN: Soft, nontender. No guarding or rebound. EXTREMITIES: No cyanosis, clubbing or edema. NEUROLOGIC: Grossly intact with No focal deficits. LABORATORY: White count 8.2, hemoglobin 12.4, platelets of 159. Chemistry within normal limits. BNP mildly elevated at 6020. TSH was 0.015, T4 0.59, free T3 2.03. IMPRESSION AND PLAN: 1. Abdominal discomfort and ascites of unclear etiology. Clearly very suspicious for possible underlying malignancy. 2. Pulmonary nodules. Appearance consistent with metastatic disease. 3. History of hypothyroidism with Endocrinology recommendations. RECOMMENDATIONS: 1. Paracentesis with ascitic fluid study. 2. We will discuss with Radiology, may benefit from a CT-guided biopsy of pulmonary nodule. 3. Consider colonoscopy and/or endoscopy. Dictated By: dEward Branch MD /denice/genna /Document#: [id number]
[2016-12-03 14:00] VITALS: BP 137/90; RESP 18
[2016-12-03] MEDS ORDERED: PHYTONADIONE 10 MG in DEXTROSE 5% 50 ML IVPB ONE (16:30)
--- NOTE | 2016-12-03 17:45 | PN ---
Date/Time of Note Date/Time of Note DATE: 12/03/16 TIME: 17:42 Assessment/Plan VTE Prophylaxis VTE Prophylaxis Intervention: ambulation Lines/Catheters IV C[facility]ter Type (from [facility]): Saline Lock Assessment/Plan Chief Complaint/Hosp Course 1. Anasarca with moderate ascites noted on CT abdomen Status post ultrasound paracentesis with only minimal fluid able to be removed, follow-up on fluid analysis to evaluate for malignancy CT chest with IV contrast to evaluate for lung cancer, follow-up on official read Follow-up on PSA, CA-19-9 is normal 2. Hyperthyroidism with history of A. fib with RVR-rate stable Endocrinology consultation appreciated, plan is for biopsy of thyroid nodules Continue home methimazole 3. History of lower GI bleed secondary to internal hemorrhoids-stable 4. Liver lesions-appears benign on CT AFP and CEA during last hospitalization was normal 5. Acute kidney injury secondary to third spacing-resolved Prophylaxis: Ambulation Problems: Subjective 24 Hr Interval Summary Constitutional: no complaints Exam/Review of Systems Vital Signs Vitals Vital Signs Date Time Temp Pulse Resp B/P Pulse Ox O2 Delivery O2 Flow Rate FiO2 12/03/16 14:00 97.6 70 18 137/90 97 12/01/16 16:48 Room Air Intake and Output 12/02/16 12/02/16 12/03/16 15:00 23:00 07:00 Intake Total 320 ml Balance 320 ml Exam Constitutional: alert, oriented Respiratory: clear to auscultation Cardiovascular: regular rate and rhythm Gastrointestinal: soft, No distended Musculoskeletal: nl extremities to inspection Results Result Diagram: 12/02/16 0528 12/03/16 0547 Results 24 hrs Laboratory Tests Test 12/03/16 05:47 Sodium Level 139 Potassium Level 3.9 Chloride Level 110 Carbon Dioxide Level 24 Anion Gap 9 Blood Urea Nitrogen 20 Creatinine 1.06 Glucose Level 91 Calcium Level 8.5 Medications Medications Current Medications Ondansetron HCl (Zofran Inj) 4 mg Q6H PRN IV NAUSEA AND/OR VOMITING; Start 02/06 at 18:30 Acetaminophen (Tylenol Tab) 650 mg Q6H PRN PO PAIN LEVEL 1-3 OR FEVER; Start at 18:30 Acetaminophen/ Hydrocodone Bitart ([place] (5/325)) 1 tab Q6H PRN PO MODERATE PAIN LEVEL 4-6; Start 12/01/16 at 18:30 Morphine Sulfate (morphine) 2 mg Q4H PRN IV SEVERE PAIN LEVEL 7-10; Start 12/01 at 18:30 Docusate Sodium (Colace) 100 mg Q12H PRN PO CONSTIPATION Last administered on 06:06; Admin Dose 100 MG; Start 12/01/16 at 18:30 Zolpidem Tartrate (Ambien) 5 mg QHS PRN PO SLEEP; Start 12/01/16 at 18:30 Metoprolol Tartrate (Lopressor) 150 mg BID PO Last administered on 12/03/16 08 :24; Admin Dose 150 MG; Start 12/01/16 at 21:00 Tamsulosin HCl (Flomax) 0.4 mg HS PO Last administered on 12/02/16 20:37; Admin Dose 0.4 MG; Start 12/01/16 at 21:00 Atorvastatin Calcium (Lipitor) 10 mg DAILY@21 PO Last administered on 20:37; Admin Dose 10 MG; Start 12/01/16 at 21:00 Methimazole (Tapazole) 10 mg QAM PO Last administered on 12/03/16 09:56; Admin Dose 10 MG; Start 12/03/16 at 10:00 GIANLUCA VILLA Dec 03, 2016 17:45
[2016-12-03 18:31] LABS: PSA, FREE 0.1 ng/mL
[2016-12-03 20:25] VITALS: BP 148/94; RESP 18
[2016-12-03] MEDS: TAMSULOSIN (SR) 0.4 MG CAP PO SCH (20:47)
[2016-12-03] MEDS: ATORVASTATIN 10 MG TAB PO SCH (20:47)
[2016-12-04 02:00] VITALS: BP 139/84; RESP 18
[2016-12-04 06:03] LABS: INR 1.2; PROTIME 15.3 Sec (12.2-14.2); PT RATIO 1.2
[2016-12-04 06:04] LABS: PARTIAL THROMBOPLASTIN TIME 33.9 Sec (25.0-35.0)
[2016-12-04 07:49] VITALS: BP 151/102; RESP 18
[2016-12-04] MEDS: METOPROLOL 100 MG TAB PO SCH ×2 (08:35→20:35)
[2016-12-04] MEDS: METHIMAZOLE 5 MG TAB PO SCH (08:36)
--- NOTE | 2016-12-04 10:55 | CONS ---
Date/Time of Note Date/Time of Note DATE: 12/04/16 TIME: 10:52 Consult Date/Type/Reason Admit Date/Time Dec 01, 2016 at 14:41 Initial Consult Date 12/02/16 Type of Consultation: Pulmonary Ordering Provider: GIANLUCA VILLA Subjective Patient remains relatively stable no new events. Still has exertional dyspnea. Objective Vital Signs Date Time Temp Pulse Resp B/P Pulse Ox O2 Delivery O2 Flow Rate FiO2 12/04/16 07:49 97.7 68 18 151/102 99 12/01/16 16:48 Room Air Intake and Output 12/03/16 12/03/16 12/04/16 15:00 23:00 07:00 Intake Total 1300 ml 401 ml Balance 1300 ml 401 ml Exam PHYSICAL EXAMINATION: GENERAL: On examination, elderly-appearing gentleman, comfortable at rest. No acute distress. VITAL SIGNS: NECK: Supple. No JVD, lymphadenopathy. CARDIAC: S1, S2. No added sounds or murmurs. CHEST: Diminished air entry bilaterally. ABDOMEN: Soft, nontender. No guarding or rebound. EXTREMITIES: No cyanosis, clubbing or edema. NEUROLOGIC: Grossly intact with No focal deficits. Results/Medications Result Diagram: 12/02/16 0528 12/03/16 0547 Results 24 hrs Laboratory Tests Test 12/04/16 05:06 Prothrombin Time 15.3 #H Prothrombin Time Ratio 1.2 INR International Normalized Ratio 1.20 Activated Partial Thromboplast Time 33.9 Medications Current Medications Ondansetron HCl (Zofran Inj) 4 mg Q6H PRN IV NAUSEA AND/OR VOMITING; Start 02/06 at 18:30 Acetaminophen (Tylenol Tab) 650 mg Q6H PRN PO PAIN LEVEL 1-3 OR FEVER; Start at 18:30 Acetaminophen/ Hydrocodone Bitart ([place] (5/325)) 1 tab Q6H PRN PO MODERATE PAIN LEVEL 4-6; Start 12/01/16 at 18:30 Morphine Sulfate (morphine) 2 mg Q4H PRN IV SEVERE PAIN LEVEL 7-10; Start 12/01 at 18:30 Docusate Sodium (Colace) 100 mg Q12H PRN PO CONSTIPATION Last administered on t 06:06; Admin Dose 100 MG; Start 12/01/16 at 18:30 Zolpidem Tartrate (Ambien) 5 mg QHS PRN PO SLEEP; Start 12/01/16 at 18:30 Metoprolol Tartrate (Lopressor) 150 mg BID PO Last administered on 12/04/16 08 :35; Admin Dose 150 MG; Start 12/01/16 at 21:00 Tamsulosin HCl (Flomax) 0.4 mg HS PO Last administered on 12/03/16 20:47; Admin Dose 0.4 MG; Start 12/01/16 at 21:00 Atorvastatin Calcium (Lipitor) 10 mg DAILY@21 PO Last administered on 20:47; Admin Dose 10 MG; Start 12/01/16 at 21:00 Methimazole (Tapazole) 10 mg QAM PO Last administered on 12/04/16 08:36; Admin Dose 10 MG; Start 12/03/16 at 10:00 Assessment/Plan Chief Complaint/Hosp Course IMPRESSION AND PLAN: 1. Abdominal discomfort and ascites of unclear etiology. Clearly very suspicious for possible underlying malignancy. 2. Pulmonary nodules. Appearance consistent with metastatic disease. CT reviewed with urology today. Radiology feels that lesions are too small for CT- guided biopsy. 3. History of hypothyroidism with Endocrinology recommendations. Preliminary discussion with radiology following ultrasound of the neck suggests no need for biopsy. RECOMMENDATIONS: 1. Paracentesis with ascitic fluid study, cytology pending 2. Small to moderate pleural effusion noted will order diagnostic thoracentesis with pleural fluid for cytology. Will need outpatient PET scan. 3. Consider colonoscopy and/or endoscopy. 4. Endocrinology consult and recommendations Patient likely stable to go home after thoracentesis to follow-up with me in the office for pleural fluid results. Problems: BEV WHEATLEY MD, [facility] Dec 04, 2016 10:55
--- NOTE | 2016-12-04 13:18 | PN ---
Date/Time of Note Date/Time of Note DATE: 12/04/16 TIME: 13:13 Assessment/Plan VTE Prophylaxis VTE Prophylaxis Intervention: heparin Lines/Catheters IV [facility] Saline Lock Assessment/Plan Chief Complaint/Hosp Course 81-year-old [place] gentleman who was admitted to this facility for GI bleed in over anticoagulation around October 24 of this year. Is found to have significant thyrotoxicosis with his rapid atrial fibrillation. In addition he had multiple pulmonary nodules that were being worked up. Is come back in. He has been steadily taking his methimazole and multiple other symptoms of hyperthyroidism have improved. Please note that his prior thyroid nodules were not biopsied at the time of his admission as he was hyperthyroid and we did not have delineation about which of the nodules were hyperfunctioning. 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 Please note that the definition of a nodule is appropriate for biopsy as a nodule greater than 10 mm in size. User: Nevaeh Velez RN Date: 12/04/16 08:52 Type: Nurse Notes PER RADIOLOGY, BIOPSY OF NODULES OF THE THYROID AND THE LUNGS WILL BE CANCELED AFTER DR. WADDELL REVIEWED THE PATIENTS IMAGES STATING THAT THE NODULES ARE TOO SMALL IN THE LUNGS AND THEY RECOMMEND AN OUTPATIENT FOLLOW UP VIA ULTRASOUND FOR THE NODULES ON THYROID. DR. WADDELL HAS ALREADY SPOKEN TO DR. WHEATLEY ABOUT THE CANCELATION. ACCORDING TO [facility], DR. WHEATLEY WILL SPEAK TO DR. ROKAW. BARON TO RESUME DIET FOR THE PATIENT. WILL INFORM THE PATIENT ON UPDATES. PROCEDURE: US thyroid. CLINICAL INDICATION: Abnormal thyroid profile, tachycardia IMPRESSION: Multiple right thyroid nodules. Consider biopsy of 1.8 cm mixed solid and cystic nodule with a small amount of internal vascular flow and appearance of small internal calcifications in the lower right lobe and 1.2 cm solid nodule with considerable internal vascular flow in the upper right lobe. RPTAT: HJES .Dillon Osborne MD, MD Date Time At this time this is a hyperthyroid multinodular thyroid gland. I believe that we can appropriately postpone needle biopsy of these nodules especially as the patient coming under control of the hyperthyroidism. The dosage of the methimazole should be at 10 mg today and the patient will need to be followed up in 6-8 weeks. At that time we can go ahead with doing the nuclear medicine thyroid uptake and scan as will be enough time away from the IV iodine contrast from the CTs. (2) Anasarca Status: Acute Comment: Noted. Per primary team (3) Atrial fibrillation with rapid ventricular response Status: Chronic Comment: Controlled. (4) Multiple lung nodules on CT Status: Acute Comment: As per pulmonary consultants Awaiting pathology report from paracentesis Subjective 24 Hr Interval Summary Free Text/Dictation Patient reports still with dyspnea on exertion. No swallowing symptoms. Constitutional: improved, no complaints Respiratory: no complaints Cardiovascular: no complaints Gastrointestinal: no complaints Genitourinary: no complaints Musculoskeletal: no complaints Exam/Review of Systems Vital Signs Vitals Vital Signs Date Time Temp Pulse Resp B/P Pulse Ox O2 Delivery O2 Flow Rate FiO2 12/04/16 07:49 97.7 68 18 151/102 99 12/01/16 16:48 Room Air Intake and Output 12/03/16 12/03/16 12/04/16 15:00 23:00 07:00 Intake Total 1300 ml 401 ml Balance 1300 ml 401 ml Exam Constitutional: alert, oriented Neck: thyromegaly (With nodules) Respiratory: clear to auscultation, normal air movement Cardiovascular: nl pulses, regular rate and rhythm Results Result Diagram: 12/02/16 0528 12/03/16 0547 Results 24 hrs Laboratory Tests Test 12/04/16 05:06 Prothrombin Time 15.3 #H Prothrombin Time Ratio 1.2 INR International Normalized Ratio 1.20 Activated Partial Thromboplast Time 33.9 Medications Medications Current Medications Ondansetron HCl (Zofran Inj) 4 mg Q6H PRN IV NAUSEA AND/OR VOMITING; Start 02/06 at 18:30 Acetaminophen (Tylenol Tab) 650 mg Q6H PRN PO PAIN LEVEL 1-3 OR FEVER; Start at 18:30 Acetaminophen/ Hydrocodone Bitart ([place] (5/325)) 1 tab Q6H PRN PO MODERATE PAIN LEVEL 4-6; Start 12/01/16 at 18:30 Morphine Sulfate (morphine) 2 mg Q4H PRN IV SEVERE PAIN LEVEL 7-10; Start 12/01 at 18:30 Docusate Sodium (Colace) 100 mg Q12H PRN PO CONSTIPATION Last administered on 06:06; Admin Dose 100 MG; Start 12/01/16 at 18:30 Zolpidem Tartrate (Ambien) 5 mg QHS PRN PO SLEEP; Start 12/01/16 at 18:30 Metoprolol Tartrate (Lopressor) 150 mg BID PO Last administered on 12/04/16 08 :35; Admin Dose 150 MG; Start 12/01/16 at 21:00 Tamsulosin HCl (Flomax) 0.4 mg HS PO Last administered on 12/03/16 20:47; Admin Dose 0.4 MG; Start 12/01/16 at 21:00 Atorvastatin Calcium (Lipitor) 10 mg DAILY@21 PO Last administered on 20:47; Admin Dose 10 MG; Start 12/01/16 at 21:00 Methimazole (Tapazole) 10 mg QAM PO Last administered on 12/04/16 08:36; Admin Dose 10 MG; Start 12/03/16 at 10:00 CHRISTIE CLARKE MD Dec 04, 2016 13:18
[2016-12-04 14:21] VITALS: BP 136/80; RESP 18
--- NOTE | 2016-12-04 14:21 | PN ---
Date/Time of Note Date/Time of Note DATE: 12/04/16 TIME: 14:17 Assessment/Plan VTE Prophylaxis VTE Prophylaxis Intervention: ambulation Lines/Catheters IV C[facility]ter Type [facility]from [facility] Saline Lock Assessment/Plan Chief Complaint/Hosp Course 1. Anasarca with moderate ascites noted on CT abdomen and pleural effusions noted on CT chest Status post ultrasound paracentesis with only minimal fluid able to be removed, follow-up on fluid analysis to evaluate for malignancy CT chest with IV contrast shows pulmonary nodules, per IR these are too small to biopsy PSA, CA-19-9 is normal Ultrasound thoracentesis today with fluid analysis 2. Hyperthyroidism with history of A. fib with RVR-rate stable Endocrinology consultation appreciated, plan was for biopsy of thyroid nodules but nodules are now too small to biopsy Continue home methimazole 3. History of lower GI bleed secondary to internal hemorrhoids-stable 4. Liver lesions-appears benign on CT AFP and CEA during last hospitalization was normal 5. Acute kidney injury secondary to third spacing-resolved Prophylaxis: Ambulation Discharge planning: DC in a.m. Problems: Subjective 24 Hr Interval Summary Constitutional: no complaints Exam/Review of Systems Vital Signs Vitals Vital Signs Date Time Temp Pulse Resp B/P Pulse Ox O2 Delivery O2 Flow Rate FiO2 12/04/16 07:49 97.7 68 18 151/102 99 12/01/16 16:48 Room Air Intake and Output 12/03/16 12/03/16 12/04/16 15:00 23:00 07:00 Intake Total 1300 ml 401 ml Balance 1300 ml 401 ml Exam Constitutional: alert, oriented Respiratory: clear to auscultation Cardiovascular: regular rate and rhythm Gastrointestinal: soft, No distended Musculoskeletal: nl extremities to inspection Results Result Diagram: 12/02/16 0528 12/03/16 0547 Results 24 hrs Laboratory Tests Test 12/04/16 05:06 Prothrombin Time 15.3 #H Prothrombin Time Ratio 1.2 INR International Normalized Ratio 1.20 Activated Partial Thromboplast Time 33.9 Medications Medications Current Medications Ondansetron HCl (Zofran Inj) 4 mg Q6H PRN IV NAUSEA AND/OR VOMITING; Start 02/06 at 18:30 Acetaminophen (Tylenol Tab) 650 mg Q6H PRN PO PAIN LEVEL 1-3 OR FEVER; Start at 18:30 Acetaminophen/ Hydrocodone Bitart ([place] (5/325)) 1 tab Q6H PRN PO MODERATE PAIN LEVEL 4-6; Start 12/01/16 at 18:30 Morphine Sulfate (morphine) 2 mg Q4H PRN IV SEVERE PAIN LEVEL 7-10; Start 12/01 at 18:30 Docusate Sodium (Colace) 100 mg Q12H PRN PO CONSTIPATION Last administered on 06:06; Admin Dose 100 MG; Start 12/01/16 at 18:30 Zolpidem Tartrate (Ambien) 5 mg QHS PRN PO SLEEP; Start 12/01/16 at 18:30 Metoprolol Tartrate (Lopressor) 150 mg BID PO Last administered on 12/04/16 08 :35; Admin Dose 150 MG; Start 12/01/16 at 21:00 Tamsulosin HCl (Flomax) 0.4 mg HS PO Last administered on 12/03/16 20:47; Admin Dose 0.4 MG; Start 12/01/16 at 21:00 Atorvastatin Calcium (Lipitor) 10 mg DAILY@21 PO Last administered on 20:47; Admin Dose 10 MG; Start 12/01/16 at 21:00 Methimazole (Tapazole) 10 mg QAM PO Last administered on 12/04/16 08:36; Admin Dose 10 MG; Start 12/03/16 at 10:00 GIANLUCA VILLA Dec 04, 2016 14:21
--- NOTE | 2016-12-04 17:00 | RADRPT ---
PROCEDURE: US Chest. CLINICAL INDICATION: Shortness of breath. TECHNIQUE: Ultrasound of both sides of the chest was performed in the axial and sagittal planes. COMPARISON: No prior study is available for comparison. FINDINGS: There are very small bilateral pleural effusions with right larger than left. Due to the small amoun t of pleural fluid, thoracentesis was not performed. IMPRESSION: 1. There are small bilateral pleural effusions with right larger than left. 2. Thoracentesis not performed. RPTAT: QQ .Joaquin Huerta MD, MD Date Time Electronically viewed and signed by .Joaquin Huerta MD, MD on 12/04/2016 16:59 .R/
[2016-12-04] MEDS: NACL 0.9% 3 ML SYG IV SCH (20:00)
[2016-12-04 20:21] VITALS: BP 132/81; RESP 18
[2016-12-04] MEDS: ATORVASTATIN 10 MG TAB PO SCH (20:35)
[2016-12-04] MEDS: TAMSULOSIN (SR) 0.4 MG CAP PO SCH (20:35)
[2016-12-05 02:35] VITALS: BP 117/79; RESP 20
[2016-12-05 02:50] VITALS: PULSE 91
[2016-12-05 06:23] LABS: BASOPHIL # 0.1 10^3/ul (0.0-0.1); BASOPHILS % 0.9 % (0.0-2.0); EOSINOPHILS # 1.6 10^3/ul (0.0-0.5); HEMATOCRIT 29.9 % (42.0-52.0); HEMOGLOBIN 9.6 g/dl (14.0-18.0); LYMPHOCYTES # 1.7 10^3/ul (0.8-2.9); LYMPHOCYTES % 23.1 % (15.0-51.0); MEAN CORPUSCULAR HEMOGLOBIN 31.8 pg (29.0-33.0); MEAN CORPUSCULAR HGB CONC 32.1 g/dl (32.0-37.0); MEAN PLATELET VOLUME 10.6 fl (7.4-10.4); MONOCYTE # 0.6 10^3/ul (0.3-0.9); MONOCYTES % 8.2 % (0.0-11.0); NEUTROPHIL # 3.5 10^3/ul (1.6-7.5); NEUTROPHILS % 46.5 % (39.0-77.0); PLATELET COUNT 154 10^3/UL (140-415); RED BLOOD COUNT 3.02 10^6/ul (4.70-6.10); RED CELL DISTRIBUTION WIDTH 18.1 % (11.5-14.5); WHITE BLOOD COUNT 7.5 10^3/ul (4.8-10.8)
[2016-12-05 06:47] LABS: CALCIUM 8.6 mg/dl (8.4-10.2); CREATININE 0.99 mg/dl (0.61-1.24); POTASSIUM 4.5 mmol/L (3.5-5.1)
[2016-12-05] MEDS: METHIMAZOLE 5 MG TAB PO SCH (08:17)
--- NOTE | 2016-12-05 09:12 | RADRPT ---
PROCEDURE: XR Chest. CLINICAL INDICATION: Shortness of breath TECHNIQUE: A single AP view of the chest was obtained. COMPARISON: CT chest dated 12/01/2016 FINDINGS: The lungs are hyperinflated with prominent, coarsened interstitial markings. There is a small right pleural effusion. No pneumothorax is seen. The cardiomediastinal silhouette is mildly enlarged. Denny cifications are seen within the aortic arch. The osseous structures demonstrate senescent changes. IMPRESSION: 1. Chronic-appearing interstitial changes with superimposed interstitial edema. No significant inte rval change. 2. Small right pleural effusion. 3. Mild cardiomegaly and aortic atherosclerosis. RPTAT: HH .Theresa Henning MD, MD Date Time Electronically viewed and signed by .Theresa Henning MD, on 12/05/2016 09:11 .G/
[2016-12-05] MEDS: METOPROLOL 100 MG TAB PO SCH (09:26)
[2016-12-05 09:27] VITALS: BP 122/90; PULSE 75
--- NOTE | 2016-12-05 09:29 | CONS ---
Date/Time of Note Date/Time of Note DATE: 12/05/16 TIME: 09:26 Assessment/Plan Assessment/Plan Additional Assessment/Plan Chest x-ray was reviewed from today which is showing nonspecific fibrotic pattern more pronounced in lower lobes. Assessment and recommend; 1. Patient admitted with shortness of breath due to atrial fibrillation with RVR. 2. Status post paracentesis, only 5 mL of fluid could be aspirated. 3. Pleural effusions, too small for safe thoracentesis. 4. Underlying COPD. 5. Possibility of interstitial lung disease explaining nodular changes on CT imaging of abdomen. Seen on lung images. Continue current supportive care. Consider discharge. Consider outpatient PET scan. Consultation Date/Type/Reason Admit Date/Time Dec 01, 2016 at 14:41 Initial Consult Date 12/02/16 Type of Consultation: Pulmonary Referring Provider: GIANLUCA VILLA 24 HR Interval Summary Free Text/Dictation Patient's condition is stable. Remains completely awake and alert. Currently eating breakfast at bedside. Denies any shortness of breath, cough, abdominal pain, complains of mild throat discomfort upon swallowing. General exam; elderly male, awake and alert. Currently in no distress. Exam/Review of Systems Vital Signs Vitals Vital Signs Date Time Temp Pulse Resp B/P Pulse Ox O2 Delivery O2 Flow Rate FiO2 12/05/16 02:50 91 12/05/16 02:35 97.9 20 117/79 95 12/01/16 16:48 Room Air Intake and Output 12/04/16 12/04/16 12/05/16 15:00 23:00 07:00 Intake Total 480 ml 800 ml 200 ml Balance 480 ml 800 ml 200 ml Exam HEENT exam; supple neck, no JVD. No lymphadenopathy. Midline trachea. No thyromegaly. Patient is edentulous and wears dentures. Chest exam; clear to auscultation. S1-S2 audible, no murmurs. Regular rhythm. Abdomen exam; soft, no organomegaly. Bowel sounds audible. Extremity exam; no peripheral edema. [employer] exam; no focal deficit. Results Result Diagram: 12/05/16 0545 12/05/16 0545 Results 24 hrs Laboratory Tests Test 12/05/16 05:45 White Blood Count 7.5 Red Blood Count 3.02 #L Hemoglobin 9.6 #L Hematocrit 29.9 #L Mean Corpuscular Volume 99.0 Mean Corpuscular Hemoglobin 31.8 Mean Corpuscular Hemoglobin Concent 32.1 Red Cell Distribution Width 18.1 H Platelet Count 154 Mean Platelet Volume 10.6 H Neutrophils % 46.5 Lymphocytes % 23.1 Monocytes % 8.2 Eosinophils % 21.0 H Basophils % 0.9 Nucleated Red Blood Cells % 0.0 Neutrophils # 3.5 Lymphocytes # 1.7 Monocytes # 0.6 Eosinophils # 1.6 H Basophils # 0.1 Nucleated Red Blood Cells # 0.0 Sodium Level 138 Potassium Level 4.5 Chloride Level 106 Carbon Dioxide Level 27 Anion Gap 10 Blood Urea Nitrogen 16 Creatinine 0.99 Glucose Level 91 Calcium Level 8.6 Medications Medications Current Medications Ondansetron HCl (Zofran Inj) 4 mg Q6H PRN IV NAUSEA AND/OR VOMITING; Start 02/06 at 18:30 Acetaminophen (Tylenol Tab) 650 mg Q6H PRN PO PAIN LEVEL 1-3 OR FEVER; Start at 18:30 Acetaminophen/ Hydrocodone Bitart ([place] (5/325)) 1 tab Q6H PRN PO MODERATE PAIN LEVEL 4-6; Start 12/01/16 at 18:30 Morphine Sulfate (morphine) 2 mg Q4H PRN IV SEVERE PAIN LEVEL 7-10; Start 12/01 at 18:30 Docusate Sodium (Colace) 100 mg Q12H PRN PO CONSTIPATION Last administered on 06:06; Admin Dose 100 MG; Start 12/01/16 at 18:30 Zolpidem Tartrate (Ambien) 5 mg QHS PRN PO SLEEP; Start 12/01/16 at 18:30 Metoprolol Tartrate (Lopressor) 150 mg BID PO Last administered on 12/04/16 20 :35; Admin Dose 150 MG; Start 12/01/16 at 21:00 Tamsulosin HCl (Flomax) 0.4 mg HS PO Last administered on 12/04/16 20:35; Admin Dose 0.4 MG; Start 12/01/16 at 21:00 Atorvastatin Calcium (Lipitor) 10 mg DAILY@21 PO Last administered on 20:35; Admin Dose 10 MG; Start 12/01/16 at 21:00 Methimazole (Tapazole) 10 mg QAM PO Last administered on 12/05/16 08:17; Admin Dose 10 MG; Start 12/03/16 at 10:00 TRACEY RUBIN Dec 05, 2016 09:29
[2016-12-05 14:00] VITALS: BP 128/87; RESP 18
[2016-12-05] MEDS ORDERED: TAMS0.4C2 PO (15:57)
[2016-12-05] MEDS ORDERED: METH-493 PO (15:57)
--- NOTE | 2016-12-05 16:00 | PDOCDIS ---
Discharge Instructions CONDITION Patient Condition: Good HOME CARE INSTRUCTIONS: Diet Instructions: Regular ACTIVITY: Activity Restrictions: No Restrictions FOLLOW UP/APPOINTMENTS Follow-up Plan F/U WITH YOUR PCP IN 1-2 WEEKS, F/U WITH DR CLARKE OF ENDOCRINOLOGY AND WITH DR WHEATLEY OF PULMONOLOGY FOR PET SCAN RESULTS GIANLUCA VILLA Dec 05, 2016 16:00
--- NOTE | 2016-12-05 18:18 | DS ---
Date/Time of Note Date/Time of Note DATE: 12/05/16 TIME: 18:10 Discharge Summary Admission/Discharge Info Admit Date/Time Dec 01, 2016 at 14:41 Discharge Date/Time Dec 05, 2016 at 16:40 Discharge Diagnosis 1. Anasarca with moderate ascites noted on CT abdomen and pleural effusions noted on CT chest Status post ultrasound paracentesis with only minimal fluid able to be removed, follow-up on cytology as an outpatient CT chest with IV contrast shows pulmonary nodules, per IR these are too small to biopsy and plan is for outpatient PET scan PSA, CA-19-9 is normal Ultrasound thoracentesis unable to be done as there is insufficient fluid 2. Hyperthyroidism with history of A. fib with RVR-rate stable Endocrinology consultation appreciated, plan was for biopsy of thyroid nodules but nodules are now too small to biopsy Continue home methimazole but now at 10 mg daily, follow-up with endocrinology 3. History of lower GI bleed secondary to internal hemorrhoids-stable 4. Liver lesions-appears benign on CT AFP and CEA during last hospitalization was normal 5. Acute kidney injury secondary to third spacing-resolved Patient Condition: Good Hospital Course Patient is a 81-year-old male with history of hyperthyroidism with A. fib, internal hemorrhoids as well as lung lesions with plans for outpatient PET scan. Patient presents with worsening abdominal distention for the past 5 days. In the ER CT abdomen showed pulmonary nodules as well as moderate ascites. Patient had a paracentesis only small amount of fluid was able to be removed. Cultures from the fluid were negative cytology was pending. Patient had a CT chest confirmed pulmonary nodules, patient was seen by pulmonology and a biopsy was requested but per IR nodules were too small for biopsy. Patient also had thyroid nodules that were too small for biopsy. CT chest did show right-sided pleural effusions but ultrasound showed an insufficient amount of fluid to remove. Patient was seen by endocrinology and methimazole was changed 10 mg daily. Patient was felt to be stable for discharge with plans for outpatient PET scan of the lungs. Of note patient's PSA and CA-19-9 were normal. Patient was to follow-up with pulmonology and Endocrinology and [employer] made arrangements for follow-up. On the day of discharge patient's vitals, labs and physical exam were stable patient had no acute complaints and questions are answered. Home Meds Active Scripts Methimazole* (Methimazole*) 5 Mg Tablet, 10 MG PO QAM, #60 TAB 2 Refills Prov:GIANLUCA VILLA 12/05/16 Tamsulosin Hcl* (Tamsulosin Hcl*) 0.4 Mg Cap.er.24h, 0.4 MG PO HS, #60 CAP 1 Refill Prov:GIANLUCA VILLA 12/05/16 Metoprolol Tartrate* (Lopressor*) 100 Mg Tablet, 150 MG PO BID, #60 TAB 1 Refill Prov:GIANLUCA VILLA 11/03/16 Apixaban* (Eliquis*) 5 Mg Tablet, 5 MG PO BID, #60 TAB 1 Refill Prov:GIANLUCA VILLA 11/03/16 Reported Medications Lovastatin* (Altoprev*) 40 Mg Tab.sr.24h, 40 MG PO HS, TAB 10/24/16 Discontinued Scripts Methimazole* (Methimazole*) 5 Mg Tablet, 20 MG PO QAM, #60 TAB Prov:GIANLUCA VILLA 11/03/16 Follow-up Plan F/U WITH YOUR PCP IN 1-2 WEEKS, F/U WITH DR CLARKE OF ENDOCRINOLOGY AND WITH DR WHEATLEY OF PULMONOLOGY FOR PET SCAN RESULTS Primary Care Provider Fabby Morales Time spent on discharge: > 30 minutes GIANLUCA VILLA Dec 05, 2016 18:18
== END 2016-12-05 16:40 | disposition home or self-care (01) | DRG 187 ==
LOC: E/R 09:03 → MS2 14:41
PROVIDERS: ADMIT Internal Medicine; ATTEND Internal Medicine
PROC: 0W9G3ZX Drainage of Peritoneal Cavity, Percutaneous Approach, Diagnostic (ICD-10-PCS; principal; 2016-12-02)
DX: J90 Pleural effusion, not elsewhere classified (principal); R18.8 Other ascites; N17.9 Acute kidney failure, unspecified; I48.2 Chronic atrial fibrillation; E05.20 Thyrotoxicosis with toxic multinodular goiter without thyrotoxic crisis or storm; I10 Essential (primary) hypertension; E78.5 Hyperlipidemia, unspecified; N40.0 Benign prostatic hyperplasia without lower urinary tract symptoms; K59.00 Constipation, unspecified; R91.1 Solitary pulmonary nodule; K64.8 Other hemorrhoids; K76.9 Liver disease, unspecified; Z85.46 Personal history of malignant neoplasm of prostate; Z87.891 Personal history of nicotine dependence
CPT/HCPCS: 36415; 71010; 71260; 74176; 76604; 80048; 80053; 81001; 82042; 82150; 83615; 83690; 83735; 83880; 84100; 84153; 84154; 84157; 84436; 84439; 84443; 84479; 84481; 84484; 85025; 85610; 85730; 86301; 87070; 89051; 93005; 96374; J1940; Q9967